=== PATIENT | female | born 1950 | race Caucasian/White ===

== ENCOUNTER 2017-10-31 07:53 | Outpatient (CLI) | payer BC ==
[2017-10-31 08:37] LABS: ADD MAN DIFF? NO
[2017-10-31 08:39] LABS: BASO # 0.2 x10^3/uL (0.0-0.2); BASO % 1 % (0-3); EOS # 0.3 x10^3/uL (0.0-0.7); EOS % 2 % (0-3); HEMATOCRIT 25.4 % (36.0-47.0); HEMOGLOBIN 8.5 g/dL (12.0-15.5); LYMPH # 3.5 x10^3/uL (1.0-4.8); LYMPH % 29 % (24-48); MEAN CORPUSCULAR HEMOGLOBIN 35 pg (25-35); MEAN CORPUSCULAR HGB CONC 33 g/dL (31-37); MEAN CORPUSCULAR VOLUME 106 fL (79-100); MONO # 0.6 x10^3/uL (0.0-1.1); MONO % 5 % (0-9); NEUT # 7.5 x10^3uL (1.8-7.7); NEUT % 62 % (31-73); PLATELET COUNT 386 x10^3/uL (140-400); RED CELL DISTRIBUTION WIDTH 16.2 % (11.5-14.5)
[2017-10-31 08:47] LABS: PARTIAL THROMBOPLASTIN TIME 28 SEC (24-38)
[2017-10-31] MEDS ORDERED: LIDOCAINE WITH 8.4% SOD BICARB 3 ML DISP.SYRIN. (09:23)
[2017-10-31] MEDS ORDERED: fentaNYL PF VIAL 100 MCG/2 ML VIAL (09:31)
[2017-10-31] MEDS ORDERED: MIDAZOLAM HCL/PF 2 MG/2 ML VIAL. (09:31)
[2017-10-31] MEDS ORDERED: fentaNYL PF VIAL 100 MCG/2 ML VIAL IV (09:45)
[2017-10-31] MEDS ORDERED: MIDAZOLAM HCL/PF 2 MG/2 ML VIAL. IV (09:45)
[2017-10-31] MEDS ORDERED: LIDOCAINE WITH 8.4% SOD BICARB 3 ML DISP.SYRIN. IJ (09:45)
[2017-10-31] MEDS: MIDAZOLAM HCL/PF 2 MG/2 ML VIAL. IV (10:09)
[2017-10-31] MEDS: fentaNYL PF VIAL 100 MCG/2 ML VIAL IV (10:09)
[2017-10-31] MEDS: LIDOCAINE WITH 8.4% SOD BICARB 3 ML DISP.SYRIN. IJ (10:10)
== END 2017-10-31 11:30 | disposition home or self-care (01) ==
LOC: INTRAD 07:53
DX: D47.2 Monoclonal gammopathy (principal); E78.00 Pure hypercholesterolemia, unspecified; I10 Essential (primary) hypertension; J45.909 Unspecified asthma, uncomplicated; E66.9 Obesity, unspecified; K21.9 Gastro-esophageal reflux disease without esophagitis; M19.90 Unspecified osteoarthritis, unspecified site; E03.9 Hypothyroidism, unspecified; F32.9 Major depressive disorder, single episode, unspecified; Z86.2 Personal history of diseases of the blood and blood-forming organs and certain disorders involving the immune mechanism; Z86.718 Personal history of other venous thrombosis and embolism; Z90.710 Acquired absence of both cervix and uterus; Z98.51 Tubal ligation status; Z98.890 Other specified postprocedural states
CPT/HCPCS: 36415; 38222; 77012; 85025; 85610; 85730; 99152; J2250; J3010

== ENCOUNTER → 2017-12-02 | Outpatient (CLI) | payer BC ==
[~2017-12-02] MED LIST: CONTRAST GIVEN MC; IOHEXOL 240 MG/ML 50ML VIAL. PO
[2017-12-02] MEDS: IOHEXOL 300 MG/ML 100ML VIAL. IV (11:51)
== END | disposition home or self-care (01) ==
LOC: CT 10:33
DX: D47.2 Monoclonal gammopathy (principal); D47.3 Essential (hemorrhagic) thrombocythemia; D72.820 Lymphocytosis (symptomatic); J98.11 Atelectasis; I10 Essential (primary) hypertension; Z87.891 Personal history of nicotine dependence
CPT/HCPCS: 71260; 74177; Q9966; Q9967

== ENCOUNTER → 2018-05-09 | Outpatient (CLI) | payer BC ==
[2017-10-31 11:15] VITALS: BP 102/52
[~2018-05-09] MED LIST changes: +BUPR150T6 PO; +CARB1TAB5 PO; -CONTRAST GIVEN MC; +DIAZ5TAB4 PO; +HYDR-2758 PO; +HYDR-2762 PO; -IOHEXOL 240 MG/ML 50ML VIAL. PO; +IPRA3AMP23 IH; +LEVO150T PO; +LEVO175T2 PO; +LEVO175T5 PO; +LOSA50TA7 PO; +MULT-18 PO; +OMEG1CAP6 PO; +OXYB5TAB7 PO; +OXYC-323 PO; +POLY17PO29 PO; +PROAIR HFA8.5 GM IH; +ROPI0.25 PO; +ROPI1TAB PO; +lisinopril
--- NOTE | 2018-05-09 13:40 | RAD ---
DATE: May 09, 2018 EXAM: DIGITAL SCREEN BILAT W/CAD HISTORY: Screening study. COMPARISON: July 06, 2013. This study was interpreted with the benefit of Computerized Aided Detection (CAD). FINDINGS: Breast Density: FATTY The breast parenchyma is primarily fatty replaced. Breast parenchyma level density A.. There are no dominant suspicious masses, suspicious microcalcifications or evidence of architectural distortion. Again seen is an intramammary lymph node within the upper outer quadrant of the right breast which is stable. IMPRESSION: No mammographic indicators for malignancy. BI-RADS CATEGORY: 2 BENIGN FINDING RECOMMENDED FOLLOW-UP: 12M 12 MONTH FOLLOW-UP PQRS compliance statement: Patient information was entered into a reminder system with a target due date May 10, 2019 for the next mammogram. Mammography is a sensitive method for finding small breast cancers, but it does not detect them all and is not a substitute for careful clinical examination. A negative mammogram does not negate a clinically suspicious finding and should not result in delay in biopsying a clinically suspicious abnormality. "Our facility is accredited by the [employer] Mammography Program." The patient's breast density may affect the ability of mammography to detect breast cancer. There are 4 categories of breast density, A, B, C and D. Breast density A means that most of the breast tissue is replaced with adipose tissue and therefore is not dense. Breast density B means that the breast tissue is mildly dense and scattered. Breast density C means that the breast tissue is heterogeneously dense. Breast density D means that the breast tissue is very dense. Breast densities especially C and D may decrease the sensitivity of mammography to detect breast cancer. Therefore, the patient may benefit from 3-D breast mammography (3D breast tomography) as a part of their screening mammogram. Insurance may or may not pay for this additional imaging. The patient's breast density based on today's mammogram is category A.
== END | disposition home or self-care (01) ==
LOC: MAMMO 10:50
PROVIDERS: ATTEND Internal Medicine
DX: Z12.31 Encounter for screening mammogram for malignant neoplasm of breast (principal); E78.00 Pure hypercholesterolemia, unspecified; K21.9 Gastro-esophageal reflux disease without esophagitis; E66.9 Obesity, unspecified; I10 Essential (primary) hypertension; E03.9 Hypothyroidism, unspecified; F17.200 Nicotine dependence, unspecified, uncomplicated; J45.909 Unspecified asthma, uncomplicated; Z86.2 Personal history of diseases of the blood and blood-forming organs and certain disorders involving the immune mechanism; Z90.710 Acquired absence of both cervix and uterus; Z90.49 Acquired absence of other specified parts of digestive tract
CPT/HCPCS: 77067

== ENCOUNTER → 2018-05-09 | Outpatient (CLI) | payer BC ==
[2017-10-31 11:15] VITALS: BP 102/52
[2018-05-09 11:33] LABS: AMPHETAMINE/METHAMPHETAMINE NEG (NEG); BARBITURATES NEG (NEG); BENZODIAZEPINES POS (NEG); CANNABINOIDS NEG (NEG); COCAINE NEG (NEG); METHADONE NEG (NEG); OPIATES POS (NEG); PHENCYCLIDINE NEG (NEG)
== END | disposition home or self-care (01) ==
LOC: LAB 11:01
PROVIDERS: ATTEND Family Medicine
DX: Z51.81 Encounter for therapeutic drug level monitoring (principal); I10 Essential (primary) hypertension; E78.5 Hyperlipidemia, unspecified; E78.00 Pure hypercholesterolemia, unspecified; K21.9 Gastro-esophageal reflux disease without esophagitis; E66.9 Obesity, unspecified; Z79.891 Long term (current) use of opiate analgesic; Z86.2 Personal history of diseases of the blood and blood-forming organs and certain disorders involving the immune mechanism; Z90.49 Acquired absence of other specified parts of digestive tract; Z90.710 Acquired absence of both cervix and uterus; Z86.718 Personal history of other venous thrombosis and embolism; Z87.891 Personal history of nicotine dependence; Z80.1 Family history of malignant neoplasm of trachea, bronchus and lung
CPT/HCPCS: 80307; G0479

== ENCOUNTER 2018-12-27 08:06 | Outpatient (CLI) | payer BC ==
[2018-12-27] VITALS (12 sets, daily range): BP systolic 96–170; BP diastolic 43–92
[~2018-12-27] VITALS: Ht 160 cm; Wt 103.9 kg
[~2018-12-27 08:06] MED LIST changes: +ALBU2.5V8 IH; -HYDR-2758 PO; +HYDR-2761 PO; -HYDR-2762 PO; +HYDR-2765 PO; +LOSA-73 PO; -LOSA50TA7 PO; -OXYC-323 PO; +OXYC1TAB15 PO; -PROAIR HFA8.5 GM IH
[2018-12-27] MEDS ORDERED: SAFI50TA PO (08:38)
[2018-12-27] MEDS ORDERED: LISI-334 PO (08:43)
[2018-12-27 08:51] LABS: BASO # 0.1 x10^3/uL (0.0-0.2); BASO % 1 % (0-3); EOS # 0.3 x10^3/uL (0.0-0.7); EOS % 4 % (0-3); HEMATOCRIT 24.6 % (36.0-47.0); HEMOGLOBIN 8.2 g/dL (12.0-15.5); LYMPH # 2.5 x10^3/uL (1.0-4.8); LYMPH % 26 % (24-48); MEAN CORPUSCULAR HEMOGLOBIN 35 pg (25-35); MEAN CORPUSCULAR HGB CONC 33 g/dL (31-37); MEAN CORPUSCULAR VOLUME 106 fL (79-100); MONO # 0.7 x10^3/uL (0.0-1.1); MONO % 7 % (0-9); NEUT # 5.8 x10^3uL (1.8-7.7); NEUT % 62 % (31-73); PLATELET COUNT 470 x10^3/uL (140-400); RED BLOOD COUNT 2.32 x10^6/uL (3.50-5.40); WHITE BLOOD COUNT 9.4 x10^3/uL (4.0-11.0)
[2018-12-27 09:01] LABS: PROTHROMBIN TIME PATIENT 12.6 SEC (11.7-14.0)
[2018-12-27] MEDS ORDERED: LIDOCAINE WITH 8.4% SOD BICARB 3 ML DISP.SYRIN. ONE (09:07)
[2018-12-27] MEDS ORDERED: fentaNYL PF VIAL 100 MCG/2 ML VIAL IV ONE (09:15)
[2018-12-27] MEDS ORDERED: MIDAZOLAM HCL/PF 2 MG/2 ML VIAL. IV ONE (09:15)
[2018-12-27] MEDS ORDERED: LIDOCAINE WITH 8.4% SOD BICARB 3 ML DISP.SYRIN. IJ ONE (09:15)
[2018-12-27] MEDS ORDERED: MIDAZOLAM HCL/PF 2 MG/2 ML VIAL. ONE (09:18)
[2018-12-27] MEDS ORDERED: fentaNYL PF VIAL 100 MCG/2 ML VIAL ONE (09:18)
--- NOTE | 2018-12-27 11:12 | NUR ---
Discharge Note: JULIETA ELDER Discharge instructions and discharge home medications reviewed with Patient and a copy given. All questions have been answered and understanding verbalized. Patient ate breakfast without difficulty. The following instructions and handouts were given: Moderate sedation and bone marrow biopsy care. Discontinued lines and drains: PIV left hand, dressing clean dry intact. Patient discharged to home with daughter via wheelchair to private vehicle.
--- NOTE | 2018-12-27 12:49 | RAD ---
CT-guided bone marrow biopsy. 12/27/2018 12:46 PM Indication: THROMBOCYTOPENIA Discussion: The risks and benefits of the procedure, including but not limited to, bleeding and infection were discussed patient. Informed consent was obtained. The patient was brought to the CT scanner and placed in the prone position. A timeout procedure was performed. Bottle Washer CT imaging of the pelvis demonstrated left ilium amenable to bone marrow biopsy. The overlying soft tissues were prepped and draped using maximum sterile barrier technique. 1% lidocaine without epinephrine was administered for local anesthesia. Under intermittent CT guidance, an OncControl needle was advanced into the bone marrow of the left iliac crest. 2 Aspirates and 1 core biopsy samples were obtained. Samples were delivered to pathology was present at the time of procedure. The needle was removed and manual pressure held to achieve hemostasis. No immediate complications were identified. The procedure was performed under conscious sedation including continuous cardiopulmonary monitoring via dedicated sedation nurse. Sedation time: 20 minutes Impression: Successful CT-guided bone marrow biopsy of the left iliac crest . PQRS Compliance Statement: One or more of the following individualized dose reduction techniques were utilized for this examination: 1. Automated exposure control 2. Adjustment of the mA and/or kV according to patient size 3. Use of iterative reconstruction technique
--- NOTE | 2019-01-05 22:06 | PATHOLOGY ---
[facility] Accession Number: [id number] . 01 Material submitted: . PART A: bone - BONE MARROW BIOPSY PART B: bone - BONE MARROW HERMELINDO PART C: bone - BONE MARROW ASPIRATE SLIDES PART D: bone - PERIPHERAL BLOOD SMEAR PART E: bone - BONE MARROW FLOW . 01 Clinical history: . 68-year-old woman with worsening anemia and monoclonal gammopathy. MGUS . 02 Diagnosis: Bone marrow aspirate, biopsy, cell clot and peripheral blood: - Peripheral blood with moderate to severe macrocytic anemia and mild thrombocytosis. - HYPERCELLULAR BONE MARROW WITH TRILINEAGE HEMATOPOIESIS, MILD ERYTHROID HYPERPLASIA, TRILINEAGE DYSPOIESIS WITH MILDLY INCREASED AND CLUSTERED MEGAKARYOCYTES AND INCREASED RINGED SIDEROBLASTS. (SEE COMMENT) - Minute population of CD10 positive monoclonal B-cells detected by flow cytometry. - No evidence of acute leukemia or plasma cell dyscrasia. (CLW:[facility] 01/05/2019) QTP/01/05/2019 . 02 Comment: Overall the bone marrow is hypercellular for the patient's age with trilineage hematopoiesis, mild erythroid hyperplasia, trilineage dyspoiesis including mildly increased and focally clustered megakaryocytes and increased ringed sideroblasts with no evidence of acute leukemia or plasma cell dyscrasia. Flow cytometry identifies a minute population of CD10 positive monoclonal B-cells which remain unchanged from the previous bone marrow biopsy. When compared to the previous bone marrow biopsy there is an increase in dyspoiesis, increased and focally clustered megakaryocytes and increased ringed sideroblasts. Scattered basophils/mast cells are noted on the aspirate smear and mildly increased eosinophils are noted on the core biopsy and clot sections. The findings are worrisome for a myelodysplastic syndrome or a mixed myelodysplastic syndrome / myeloproliferative neoplasm. Cytogenetics reveal a normal female karyotype. Correlation with clinical history and additional laboratory data is required. (CLW:[facility] 01/05/2019) . 02 Electronically signed: . Beth Cid MD, Pathologist NPI- [id number] . 01 Gross description: . A. Received in formalin labeled "Noy Philippe, BM BX," are 3 needle cores of tyler bone ranging from 0.4 to 0.9 cm in length and measuring 0.3 cm each in diameter. The specimen is submitted entirely in cassette A1, following decalcification. . B. Received in formalin labeled "Noy Philippe, BM Asp," is an aggregate of dark tyler blood clot measuring 3.4 x 2.7 x 0.9 cm. The specimen is filtered and entirely submitted in cassette B1 through B3. (TSD; 12/27/2018) TOB/TOB . 02 Microscopic: . CBC Data (12/27/2018): WBC 9,400 /uL, RBC 2.32, hemoglobin 8.2 g/dL, hematocrit 24.6%, MCV 106 fL, MCH 35 pg, MCHC 33 g/dL, RDW 18.0%, and platelet count 470,000 /uL. White blood cell differential: segs 62%, lymphs 26%, monos 7%, eos 4%, and basos 1%. . Peripheral Blood Smear: Cytomorphological examination of the Griffiths's stained peripheral blood smear confirms the provided data. Red blood cells show moderate to severe macrocytic anemia with mild to moderate anisocytosis. Occasional dacrocytes (pointed RBC's, tear drop cells) are noted. No schistocytes or microspherocytes are seen. White blood cells are predominantly segmented neutrophils and are without significant dyspoiesis or significant left shift. Lymphocytes are predominantly small, round, and mature appearing with condensed chromatin and scant cytoplasm with admixed large granular lymphocytes. Monocytes are mature. Platelets are adequate (mildly increased) in number and mainly normal in morphology with rare larger platelets noted. . Aspirate Smears: Cytomorphological examination of the Griffiths's stained aspirate smears shows hypercellular spicules present. The overall cellularity is approximately 80%. The myeloid to erythroid ratio is 2:1. Myeloid maturation is mildly dyspoietic with focal abnormal nuclear lobation and mitotic figures. There is a mild increase in scattered basophils/mast cells. Erythroid maturation is dyserythropoietic with irregular nuclear contours, left shifted maturation, occasional cytoplasmic vacuoles and nuclear cytoplasmic dyssynchrony. In a 500 cell differential, there are 1% blasts (no Savanna rods are seen), 58% more differentiated myeloids, 35% erythroid precursors, 5% lymphocytes and 1% plasma cells. Megakaryocytes are proportional in number and both normal and abnormal in morphology with variable sizes and nuclear abnormalities. No lymphoid aggregates or markedly atypical lymphoid cells are seen. Plasma cells are without atypia. Iron stain of the aspirate smear shows 3/4+ iron positivity with spicules present. Ringed sideroblasts are easily identified and comprise greater than 20% of the erythroid precursors. . Core Biopsy and Cell Clot: The decalcified bone marrow core biopsy is adequate. The bone marrow is hypercellular with an overall cellularity of approximately 80%. The myeloid to erythroid ratio is 1-2:1. Myeloid and erythroid maturation are dyspoietic. Megakaryocytes are normal to mildly increased in number and both normal and abnormal in morphology with focal megakaryocyte clustering. No markedly atypical megakaryocytes are identified. A mild eosinophilia is noted. No lymphoid aggregates or markedly atypical lymphoid cells are seen. Bony trabeculae and blood vessels are unremarkable. The cell clot has spicules present that are similar in cellularity and differential morphology as previously described. Collections of less mature erythroid progenitors are noted. The megakaryocyte clustering is more pronounced. . Properly controlled special stains are performed. (Block A1) Reticulin - Focal mild (1-2/4+) reticulin fibrosis Iron - 2/4+ iron positivity . Iron (block B1, B2, B3) - 2/4+ iron positivity with spicules present . Due to the flow cytometric analysis, to further evaluate the plasma cells and to identify cells in a tissue architectural context, properly controlled immunohistochemical stains are performed. . Block A1 PAX5 - Stains rare scattered small B-cells CD79a - Stains rare scattered small B-cells CD3 - Highlights admixed scattered T-cells Cyclin D1 - No B-cell co-expression Annexin - Stains myeloid cells, no B-cell co-expression MPO - Confirms the ME ratio Glycophorin A - Confirms the ME ratio and collections of erythroids CD138 - Stains approximately 5% scattered plasma cells Leaf and lambda in situ hybridization - plasma cells are polytypic . Block B1 PAX5 - Stains rare scattered small B-cells CD79a - Stains rare scattered small B-cells CD3 - Highlights admixed T-cells Cyclin D1 - No B-cell co-expression Annexin - Stains myeloids, no B-cell co-expression MPO - Confirms the ME ratio Glycophorin A - Confirms the ME ratio and collections of erythroids BCL6 - Nonreactive MUM1 - Stains scattered plasma cells CD138 - Stains approximately 5% scattered plasma cells Leaf and lambda in situ hybridization - plasma cells are polytypic . Flow Cytometry: Flow cytometric immunophenotypic analysis was performed at [facility]. The diagnosis is "minute population of CD10 positive monoclonal B-cells; abnormal cells: 0.3% small B-cells positive for CD10, CD19, CD20, and lambda". There are 6.2% lymphocytes. There are 0.3% monoclonal B-cells and 0.35% polyclonal B-cells. T-cells show a CD4/CD8 ratio of 4.1 and no aberrant T-cell antigen expression. There are 0.5% CD34 positive cells (blasts). Plasma cells are polyclonal with a cytoplasmic kappa lambda ratio of 1.1. Please see separate flow cytometry report from [facility] ([id number]). . Cytogenetics Analysis: Cytogenetic chromosomal analysis is performed at [facility]. The karyotype is 46, XX (20). The interpretation is a normal female karyotype. Cytogenetic analysis shows a normal female karyotype in all cells analyzed. Please see separate cytogenetic report from [facility] ([id number]). (CLW:[facility] 01/05/2019) . 02 Pathologist provided ICD-10: D53.9, D47.3, D75.89 . 02 CPT . 500111, 135987, 259971, 899453, 889202, 372406, 028039, 472726, 807029, 154304, 897091, [id number], H00639, J26903, [id number] Specimen Comment: A courtesy copy of this report has been sent to Specimen Comment: [phone], , . Specimen Comment: Report sent to ,DR DE / DR MAZARIEGOS Performed at: [address], [place], [place] [id number] MD Dyllan Santos MD Phone: [phone] Performed at: [address] [id number] MD Dell Parks MD Phone: [phone]
== END 2018-12-27 11:15 | disposition home or self-care (01) ==
LOC: INTRAD 08:06
PROVIDERS: ATTEND Internal Medicine Hematology & Oncology
DX: D47.2 Monoclonal gammopathy (principal); D69.6 Thrombocytopenia, unspecified; D64.9 Anemia, unspecified
CPT/HCPCS: 36415; 38222; 77012; 85025; 85610; 88184; 88185; 88237; 99152; J2250; J3010; 88305; 88313; 88341; 88342; 88364; 88365

== ENCOUNTER 2019-08-27 16:33 | Inpatient (IN) | payer BC ==
[~2019-08-27] VITALS: Ht 162.6 cm; Wt 102.5 kg
[2019-08-27] VITALS (7 sets, daily range): BP systolic 115–143; BP diastolic 46–67
[~2019-08-27 16:33] MED LIST changes: +LISI-334 PO; +OXYB5TAB10 PO; -OXYB5TAB7 PO; +SAFI50TA PO
[2019-08-27] MEDS ORDERED: methylPREDNISolone SOD SUCC PF 125 MG/2 ML VIAL. IV ONE (16:45)
[2019-08-27] MEDS ORDERED: IPRATRPIUM/ALBUTEROL 0.5/2.5MG 3 ML NEBU. NEB ONE (16:45)
--- NOTE | 2019-08-27 16:50 | PHYS DOC ---
Past Medical History Past Medical History: Hypertension, Hypothyroid, Other Additional Past Medical Histor: PARKINSONS (CARLITO HERNANDEZ APRN) Past Surgical History: Hysterectomy, Lumbar Laminectomy Additional Past Surgical Histo: (2) DEEP BRAIN STIMULATORS PLACEMENT (CARLITO HERNANDEZ APRN) Alcohol Use: None Drug Use: Marijuana (CARLITO HERNANDEZ APRN) Adult General HPI HPI Patient is a 69 year old female who presents with shortness breath, cough that started today. She also states she's been running a fever. Patient states that she was running 103 fever before arrival. She did take ibuprofen an hour ago. The patient's fever is reduced on 100.2F on arrival to the ER. Patient does have a restrained Parkinson's, and COPD. The patient was 85% on room air on arrival. The patient was placed on 2 L and went up into the 90% range. (CARLITO HERNANDEZ APRN) Review of Systems Review of Systems Constitutional: Reports fever or chills [] Eyes: Denies change in visual acuity, redness, or eye pain [] HENT: Denies nasal congestion or sore throat [] Respiratory: Reports cough and shortness of breath [] Cardiovascular: No additional information not addressed in HPI [] GI: Reports mild loss of appetite. Denies abdominal pain, nausea, vomiting, bloody stools or diarrhea [] : Denies dysuria or hematuria [] Musculoskeletal: Denies back pain or joint pain [] Integument: Denies rash or skin lesions [] Neurologic: Denies headache, focal weakness or sensory changes [] Endocrine: Denies polyuria or polydipsia [] Complete systems were reviewed and found to be within normal limits, except as documented in this note. (CARLITO HERNANDEZ APRN) Current Medications Current Medications Current Medications Medications (Trade) Dose Ordered Sig/Babak Start Time Stop Time Status Last Admin Dose Admin Albuterol/ Ipratropium (Duoneb) 3 ml 1X ONCE 08/27/19 16:45 08/27/19 16:46 DC 08/27/19 17:58 3 ML Methylprednisolone Sodium Succinate (SOLU-Medrol 125MG VIAL) 125 mg 1X ONCE 08/27/19 16:45 08/27/19 16:46 DC 08/27/19 17:04 125 MG Piperacillin Sod/ Tazobactam Sod 3.375 gm/Sodium Chloride 50 ml @ 100 mls/hr 1X STAT 08/27/19 17:17 08/27/19 17:46 DC 08/27/19 18:32 100 MLS/HR Potassium Chloride (Klor-Con) 40 meq 1X STAT 08/27/19 17:51 08/27/19 17:54 DC Sodium Chloride 1,000 ml @ 1,000 mls/hr 1X STAT 08/27/19 17:17 08/27/19 18:16 DC 08/27/19 17:40 1,000 MLS/HR Vancomycin HCl 1.5 gm/Sodium Chloride 500 ml @ 250 mls/hr 1X STAT 08/27/19 17:17 08/27/19 19:16 DC 08/27/19 18:32 250 MLS/HR (LEA GALVEZ MD) Allergies Allergies Allergies Coded Allergies Type Severity Reaction Last Updated Verified No Known Drug Allergies 06/10/15 No (LEA GALVEZ MD) Physical Exam Physical Exam Constitutional: Well developed, well nourished, no acute distress, non-toxic appearance. [] HENT: Normocephalic, atraumatic, bilateral external ears normal, oropharynx moist, no oral exudates, nose normal. [] Eyes: PERRLA, EOMI, conjunctiva normal, no discharge. [] Neck: Normal range of motion, no tenderness, supple, no stridor. [] Cardiovascular:Heart rate regular rhythm, no murmur [] Lungs & Thorax: Bilateral breath sounds have diffuse rhonchi and wheezing. Abdomen: Bowel sounds normal, soft, no tenderness, no masses, no pulsatile masses. [] Skin: Warm, dry, no erythema, no rash. [] ] Neurologic: Alert and oriented X 3, normal motor function, normal sensory function, no focal deficits noted. [] Psychologic: Affect normal, judgement normal, mood normal. [] (CARLITO HERNANDEZ APRN) Current Patient Data Vital Signs Vital Signs Date Time Temp Pulse Resp B/P (MAP) Pulse Ox O2 Delivery O2 Flow Rate FiO2 08/27/19 17:58 Nasal Cannula 1.5 08/27/19 17:45 98 18 99/50 (66) 93 08/27/19 16:40 100.3 100.3 (LEA GALVEZ MD) Lab Values Laboratory Tests Test 08/27/19 16:52 08/27/19 17:06 08/27/19 17:30 White Blood Count 52.7 x10^3/uL (4.0-11.0) *H Red Blood Count 2.04 x10^6/uL (3.50-5.40) L Hemoglobin 6.5 g/dL (12.0-15.5) *L Hematocrit 20.8 % (36.0-47.0) *L Mean Corpuscular Volume 102 fL (79-100) H Mean Corpuscular Hemoglobin 32 pg (25-35) Mean Corpuscular Hemoglobin Concent 31 g/dL (31-37) Red Cell Distribution Width 22.2 % (11.5-14.5) H Platelet Count 704 x10^3/uL (140-400) H Neutrophils (%) (Auto) 92 % (31-73) H Lymphocytes (%) (Auto) 5 % (24-48) L Monocytes (%) (Auto) 2 % (0-9) Eosinophils (%) (Auto) 0 % (0-3) Basophils (%) (Auto) 1 % (0-3) Neutrophils # (Auto) 48.5 x10^3/uL (1.8-7.7) H Lymphocytes # (Auto) 2.6 x10^3/uL (1.0-4.8) Monocytes # (Auto) 1.3 x10^3/uL (0.0-1.1) H Eosinophils # (Auto) 0.0 x10^3/uL (0.0-0.7) Basophils # (Auto) 0.3 x10^3/uL (0.0-0.2) H Segmented Neutrophils % 49 % (35-66) Band Neutrophils % 36 % (0-9) H Lymphocytes % 8 % (24-48) L Monocytes % 2 % (0-10) Metamyelocytes % 1 % (0-0) H Myelocytes % 3 % (0-0) H Promyelocytes % 1 % (0-0) H Toxic Granulation Mod Dohle Bodies Few Platelet Estimate Increased (ADEQUATE) Large Platelets Few Polychromasia Slight Hypochromasia Slight Poikilocytosis Slight Anisocytosis Mod Macrocytosis Slight Target Cells Occ Tear Drop Cells Few Ovalocytes Few Schistocytes Occ Prothrombin Time 15.9 SEC (11.7-14.0) H Prothrombin Time INR 1.3 (0.8-1.1) H Activated Partial Thromboplast Time 35 SEC (24-38) Sodium Level 139 mmol/L (136-145) Potassium Level 3.1 mmol/L (3.5-5.1) L Chloride Level 103 mmol/L (98-107) Carbon Dioxide Level 25 mmol/L (21-32) Anion Gap 11 (6-14) Blood Urea Nitrogen 38 mg/dL (7-20) H Creatinine 1.4 mg/dL (0.6-1.0) H Estimated GFR (Cockcroft-Gault) 37.4 BUN/Creatinine Ratio 27 (6-20) H Glucose Level 157 mg/dL (70-99) H Lactic Acid Level 1.4 mmol/L (0.4-2.0) Calcium Level 8.4 mg/dL (8.5-10.1) L Magnesium Level 2.0 mg/dL (1.8-2.4) Total Bilirubin 0.9 mg/dL (0.2-1.0) Aspartate Amino Transferase (AST) 16 U/L (15-37) Alanine Aminotransferase (ALT) < 6 U/L (14-59) L Alkaline Phosphatase 160 U/L (46-116) H Troponin I Quantitative < 0.017 ng/mL (0.000-0.055) HG-Uqy-U-Type Natriuretic Peptide 810 pg/mL (0-124) H Total Protein 6.1 g/dL (6.4-8.2) L Albumin 2.4 g/dL (3.4-5.0) L Albumin/Globulin Ratio 0.6 (1.0-1.7) L Procalcitonin 1.86 ng/mL (0.00-0.10) H Influenza Type A Antigen Negative (NEGATIVE) Influenza Type B Antigen Negative (NEGATIVE) O2 Saturation 90 % (92-99) L Arterial Blood pH 7.44 (7.35-7.45) Arterial Blood pCO2 at Patient Temp 37 mmHg (35-46) Arterial Blood pO2 at Patient Temp 60 mmHg (65-108) L Arterial Blood HCO3 24 mmol/L (21-28) Arterial Blood Base Excess 0 mmol/L (-3-3) Oxyhemoglobin 88.5 % Methemoglobin 0.8 % (0.0-1.9) Carbon Monoxide, Quantitative 0.3 % (0.0-1.9) FiO2 26 Laboratory Tests 08/27/19 16:52 Laboratory Tests 08/27/19 16:52 Microbiology 08/27/19 Blood Culture - Final, Complete (LEA GALVEZ MD) Lab Values Laboratory Tests Test 08/27/19 16:52 08/27/19 17:06 08/27/19 17:30 White Blood Count 52.7 x10^3/uL (4.0-11.0) *H Red Blood Count 2.04 x10^6/uL (3.50-5.40) L Hemoglobin 6.5 g/dL (12.0-15.5) *L Hematocrit 20.8 % (36.0-47.0) *L Mean Corpuscular Volume 102 fL (79-100) H Mean Corpuscular Hemoglobin 32 pg (25-35) Mean Corpuscular Hemoglobin Concent 31 g/dL (31-37) Red Cell Distribution Width 22.2 % (11.5-14.5) H Platelet Count 704 x10^3/uL (140-400) H Neutrophils (%) (Auto) 92 % (31-73) H Lymphocytes (%) (Auto) 5 % (24-48) L Monocytes (%) (Auto) 2 % (0-9) Eosinophils (%) (Auto) 0 % (0-3) Basophils (%) (Auto) 1 % (0-3) Neutrophils # (Auto) 48.5 x10^3/uL (1.8-7.7) H Lymphocytes # (Auto) 2.6 x10^3/uL (1.0-4.8) Monocytes # (Auto) 1.3 x10^3/uL (0.0-1.1) H Eosinophils # (Auto) 0.0 x10^3/uL (0.0-0.7) Basophils # (Auto) 0.3 x10^3/uL (0.0-0.2) H Platelet Estimate Pending Prothrombin Time 15.9 SEC (11.7-14.0) H Prothrombin Time INR 1.3 (0.8-1.1) H Activated Partial Thromboplast Time 35 SEC (24-38) Sodium Level 139 mmol/L (136-145) Potassium Level 3.1 mmol/L (3.5-5.1) L Chloride Level 103 mmol/L (98-107) Carbon Dioxide Level 25 mmol/L (21-32) Anion Gap 11 (6-14) Blood Urea Nitrogen 38 mg/dL (7-20) H Creatinine 1.4 mg/dL (0.6-1.0) H Estimated GFR (Cockcroft-Gault) 37.4 BUN/Creatinine Ratio 27 (6-20) H Glucose Level 157 mg/dL (70-99) H Lactic Acid Level 1.4 mmol/L (0.4-2.0) Calcium Level 8.4 mg/dL (8.5-10.1) L Magnesium Level 2.0 mg/dL (1.8-2.4) Total Bilirubin 0.9 mg/dL (0.2-1.0) Aspartate Amino Transferase (AST) 16 U/L (15-37) Alanine Aminotransferase (ALT) < 6 U/L (14-59) L Alkaline Phosphatase 160 U/L (46-116) H Troponin I Quantitative < 0.017 ng/mL (0.000-0.055) KF-Qnr-S-Type Natriuretic Peptide 810 pg/mL (0-124) H Total Protein 6.1 g/dL (6.4-8.2) L Albumin 2.4 g/dL (3.4-5.0) L Albumin/Globulin Ratio 0.6 (1.0-1.7) L Procalcitonin 1.86 ng/mL (0.00-0.10) H Influenza Type A Antigen Negative (NEGATIVE) Influenza Type B Antigen Negative (NEGATIVE) O2 Saturation 90 % (92-99) L Arterial Blood pH 7.44 (7.35-7.45) Arterial Blood pCO2 at Patient Temp 37 mmHg (35-46) Arterial Blood pO2 at Patient Temp 60 mmHg (65-108) L Arterial Blood HCO3 24 mmol/L (21-28) Arterial Blood Base Excess 0 mmol/L (-3-3) Oxyhemoglobin 88.5 % Methemoglobin 0.8 % (0.0-1.9) Carbon Monoxide, Quantitative 0.3 % (0.0-1.9) FiO2 26 Laboratory Tests 08/27/19 16:52 Laboratory Tests 08/27/19 16:52 (CARLITO HERNANDEZ APRN) EKG EKG EKG interpreted by Dr. Galvez Sinus tachycardia with rate of 102. (CARLITO HERNANDEZ APRN) Radiology/Procedures Radiology/Procedures [][facility] [address] [place] [address] IMAGING REPORT Signed PATIENT: JULIETA ELDER ACCOUNT: [id number] : 1950 LOCATION: ER AGE: 69 SEX: F EXAM STATUS: REG ER ORD. PHYSICIAN: CARLITO HERNANDEZ APRN REASON: shortness of breath PROCEDURE: PORTABLE CHEST 1V EXAM: CHEST 1 VIEW History: Shortness of breath COMPARISON: 01/12/2016 TECHNIQUE: Single portable radiograph of the chest FINDINGS: Mild cardiomegaly. Focal airspace opacity identified in the right upper lobe of the lung. Bibasilar lung airspace opacities. Mild prominent bilateral interstitial lung markings. Pacing stimulator leads projecting over the right and left chest wall similar to prior exam. IMPRESSION: 1. Consolidation changes identified in the right upper lobe and bibasilar lungs likely pneumonia or atelectasis. Follow-up to resolution. 2. Mild congestive changes. Electronically signed by: Mike Cook MD (08/27/2019 5:25 PM) [facility] DICTATED and SIGNED BY: MIKE COOK MD DATE: 08/27/191724 (CARLITO HERNANDEZ APRN) Course & Med Decision Making Course & Med Decision Making Pertinent Labs and Imaging studies reviewed. (See chart for details) Will get chest x-ray, flu, labs, and will give supportive care. Chest x-ray: 1. Consolidation changes identified in the right upper lobe and bibasilar lungs likely pneumonia or atelectasis. Follow-up to resolution. 2. Mild congestive changes. Electronically signed by: Mike Cook MD (08/27/2019 5:25 PM) [facility] Labs: WBC: 52.7--Ordered Zosyn and Vancomycin, also ordered 1 L of fluids as I am concerned with sepsis. H/H: 6.5/20.8--Ordered 1 PRBC Platelets of 704 K: 3.1 -Gave 40 meq of potassium Creatinine of 1.4 Lactic 1[address] Cruz who accepts admission. Also consulted Dr. Archuleta who agrees with Joaquin and Vanc recommendations. Critical Care time at bedside of 20 minutes. (CARLITO HERNANDEZ APRN) Course & Med Decision Making I evaluated the patient by myself and agreed with plan of care. (LEA GALVEZ MD) Dragon Disclaimer Dragon Disclaimer This electronic medical record was generated, in whole or in part, using a voice recognition dictation system. (CARLITO HERNANDEZ APRN) Departure Departure Impression: Primary Impression: Pneumonia Additional Impressions: Hypoxia Anemia Hypokalemia NATALIE (acute kidney injury) Disposition: 09 ADMITTED INPATIENT Admitting Physician: Carlito Cruz (CARLITO HERNANDEZ APRN) Condition: CRITICAL Referrals: CARLITO CRUZ MD (PCP) Problem Qualifiers Primary Impression: Pneumonia Pneumonia type: due to unspecified organism Laterality: right Lung location: upper lobe of lung Qualified Codes: J18.9 - Pneumonia, unspecified organism Additional Impressions: Anemia Anemia type: unspecified type Qualified Codes: D64.9 - Anemia, unspecified CARLITO HERNANDEZ APRN Aug 27, 2019 16:50 LEA GALVEZ MD Aug 28, 2019 16:02
[2019-08-27 17:09] LABS: BASO # 0.3 x10^3/uL (0.0-0.2); BASO % 1 % (0-3); EOS % 0 % (0-3); LYMPH # 2.6 x10^3/uL (1.0-4.8); LYMPH % 5 % (24-48); MEAN CORPUSCULAR HEMOGLOBIN 32 pg (25-35); MEAN CORPUSCULAR HGB CONC 31 g/dL (31-37); MEAN CORPUSCULAR VOLUME 102 fL (79-100); MONO # 1.3 x10^3/uL (0.0-1.1); MONO % 2 % (0-9); NEUT # 48.5 x10^3/uL (1.8-7.7); NEUT % 92 % (31-73); PLATELET COUNT 704 x10^3/uL (140-400); RED BLOOD COUNT 2.04 x10^6/uL (3.50-5.40); RED CELL DISTRIBUTION WIDTH 22.2 % (11.5-14.5)
[2019-08-27 17:17] LABS: WHITE BLOOD COUNT 52.7 x10^3/uL (4.0-11.0)
[2019-08-27] MEDS ORDERED: VANCOMYCIN 1.5 GM in IV NORMAL SALINE 500ML BAG 500 ML IV STA (17:17)
[2019-08-27] MEDS ORDERED: PIPERACILLIN/TAZOBACTAM 3.375 GM in IV NORMAL SALINE 50ML 50 ML IV STA (17:17)
[2019-08-27] MEDS ORDERED: IV NORMAL SALINE 1000ML BAG 1,000 ML IV STA ×2 (17:17)
[2019-08-27 17:18] LABS: HEMATOCRIT 20.8 % (36.0-47.0); HEMOGLOBIN 6.5 g/dL (12.0-15.5)
[2019-08-27 17:20] LABS: ANION GAP 11 (6-14); BLOOD UREA NITROGEN 38 mg/dL (7-20); BUN/CREATININE RATIO 27 (6-20); CALCIUM 8.4 mg/dL (8.5-10.1); CARBON DIOXIDE 25 mmol/L (21-32); CHLORIDE 103 mmol/L (98-107); CREATININE 1.4 mg/dL (0.6-1.0); GFR 37.4; GLUCOSE 157 mg/dL (70-99); POTASSIUM 3.1 mmol/L (3.5-5.1); SODIUM 139 mmol/L (136-145)
[2019-08-27 17:26] LABS: ALBUMIN 2.4 g/dL (3.4-5.0); ALBUMIN/GLOBULIN RATIO 0.6 (1.0-1.7); ALK PHOS 160 U/L (46-116); AST (SGOT) 16 U/L (15-37); TOTAL BILIRUBIN 0.9 mg/dL (0.2-1.0); TOTAL PROTEIN 6.1 g/dL (6.4-8.2)
--- NOTE | 2019-08-27 17:28 | RAD ---
EXAM: CHEST 1 VIEW History: Shortness of breath COMPARISON: 01/12/2016 TECHNIQUE: Single portable radiograph of the chest FINDINGS: Mild cardiomegaly. Focal airspace opacity identified in the right upper lobe of the lung. Bibasilar lung airspace opacities. Mild prominent bilateral interstitial lung markings. Pacing stimulator leads projecting over the right and left chest wall similar to prior exam. IMPRESSION: 1. Consolidation changes identified in the right upper lobe and bibasilar lungs likely pneumonia or atelectasis. Follow-up to resolution. 2. Mild congestive changes. Electronically signed by: Mike Cook MD (08/27/2019 5:25 PM) [facility]
[2019-08-27 17:38] LABS: BASE EXCESS COOX 0 mmol/L (-3-3); HCO3 COOX 24 mmol/L (21-28); METHEMOGLOBIN 0.8 % (0.0-1.9); OXYHEMOGLOBIN 88.5 %; PCO2 COOX 37 mmHg (35-46); PO2 COOX 60 mmHg (65-108); SAT O2 COOX 90 % (92-99)
[2019-08-27 17:45] LABS: PROTHROMBIN TIME PATIENT 15.9 SEC (11.7-14.0)
[2019-08-27] MEDS ORDERED: POTASSIUM CHLORIDE 20 MEQ TABLET.ER. PO STA (17:51)
[2019-08-27 17:54] LABS: ALT (SGPT) < 6 U/L (14-59)
[2019-08-27 18:10] LABS: INFLUENZA A PATIENT NEGATIVE (NEGATIVE); INFLUENZA B PATIENT NEGATIVE (NEGATIVE)
[2019-08-27] MEDS ORDERED: ONDANSETRON PF 4 MG/2 ML VIAL. IV PRN (18:30)
[2019-08-27] MEDS ORDERED: ACETAMINOPHEN 325 MG TABLET. PO PRN (18:30)
[2019-08-27 18:48] LABS: % BANDS 36 % (0-9); % LYMPHS 8 % (24-48); % METAS 1 % (0-0); % MONOS 2 % (0-10); % MYELOS 3 % (0-0); % PROS 1 % (0-0); % SEGS 49 % (35-66); ANISOCYTOSIS MOD; PLT ESTIMATE INCREASED (ADEQUATE); TOXIC GRANULATION MOD
[2019-08-27 18:49] LABS: OVALOCYTES FEW; POIKILOCYTOSIS SLIGHT
[2019-08-27 18:50] LABS: POLYCHROMASIA SLIGHT; SCHISTOCYTES OCC; TEAR DROP CELLS FEW
[2019-08-27 18:51] LABS: TARGET CELLS OCC
[2019-08-27 18:52] LABS: HYPOCHROMIA SLIGHT
[2019-08-27] MEDS: IPRATRPIUM/ALBUTEROL 0.5/2.5MG 3 ML NEBU. NEB SCH (20:25)
[2019-08-27] MEDS: POTASSIUM CL 20MEQ D5-0.45NACL 1,000 ML IV SCH (21:57)
[2019-08-27 22:01] LABS: BILIRUBIN,URINE NEGATIVE (NEG); CLARITY,URINE CLOUDY; COLOR,URINE YELLOW; NITRITE,URINE NEGATIVE (NEG); PROTEIN,URINE NEGATIVE (NEG-TRACE)
[2019-08-27 22:11] LABS: AMORPHOUS SEDIMENT,UR PRESENT /HPF; BACTERIA,URINE 0 /HPF (0-FEW); RBC,URINE 0 /HPF (0-2); SQUAMOUS EPITHELIAL CELL,UR FEW /LPF; WBC,URINE 0 /HPF (0-4)
[2019-08-28] VITALS (16 sets, daily range): BP systolic 99–139; BP diastolic 48–64
[2019-08-28] MEDS ORDERED: ALBUTEROL SULFATE 2.5 MG/3 ML NEBU. NEB PRN (00:30)
[2019-08-28] MEDS: rOPINIRole 1 MG TABLET. PO SCH ×7 (01:15→20:41)
[2019-08-28] MEDS: OXYBUTYNIN CHLORIDE 5 MG TABLET PO SCH ×4 (01:15→20:42)
[2019-08-28] MEDS ORDERED: MAGNESIUM HYDROXIDE 2,400 MG/30 ML ORAL.SUSP. PO PRN (03:30)
[2019-08-28] MEDS ORDERED: LOSA1TAB19 PO (03:31)
--- NOTE | 2019-08-28 05:48 | EKG ---
[facility] [address] [place] [address] Test Date: 2019-08-27 Test Time: 16:48:31 Pat Name: JULIETA ELDER Department: Room: Gender: F Production Grip: : 1950 Requested By: YVETTE HERNANDEZ Order Number: [id number] Reading MD: Measurements Intervals [place] Rate: 102 P: 49 IL: 146 QRS: 50 QRSD: 84 T: 27 QT: 338 QTc: 445 Interpretive Statements SINUS TACHYCARDIA LOW LIMB LEAD VOLTAGE NO SPECIFIC ECG ABNORMALITIES RI6.01 No previous ECG available for comparison
--- NOTE | 2019-08-28 05:58 | NUR ---
ORDERS RECEIVED FROM DR. MAZARIEGOS THERAPY MANAGER OF PATIENT TO ICU. THIS PATIENT IS ADMITTED TO ICU ROOM 108 FROM THE ED. REPORT RECEIVED FROM JENY ESCOBAR. REPORTS PATIENT REFUSED POTASSIUM AND PRBCS IN ED. RECEIVED 1L NS, ZOSYN AND VANCO INFUSED AND BLOOD CULTURES THERAPY MANAGER. FLUIDS ORDERED BUT NOT INFUSING. UPON ARRIVAL TO ICU PATIENT AWAKE AND ANSWERS QUESTIONS APPROPRIATELY, LETHARGIC. PATIENT REPORTS FEELING WEAK WITH SOA FOR THE PAST SEVERAL DAYS. EMS CALLED TODAY AND ADVISED OF LOW SAO2. FAMILY ARRIVED TO BEDSIDE. SOME ANXIETY NOTED AMONG FAMILY BUT FAMILY REDIRECTED. PATIENT STATES SHE WOULD LIKE FOR HER CARA TO BE PRIMARY CONTACT AND AUGUSTO HER DAUGHTER TO BE THE SECONDARY CONTACT. PATIENT REPORTS NOT TAKING HER XADAGO DUE TO COST. HAS NOT TAKEN MED SINCE 2018. EXPLAINED TO FAMILY AND PATIENT ABOUT CONSEQUENCES OF A LOW HGB WITHOUT THE BENEFIT OF PRBCS. PATIENT AND FAMILY ACKNOWLEDGED AND CONSENTED TO TRANSFUSION. PATIENT REMAINED STABLE THROUGH THE NIGHT BUT REMAINED LETHARIC AND WEAK.
[2019-08-28] MEDS ORDERED: rOPINIRole 1 MG TABLET. PO SCH (06:00)
[2019-08-28] MEDS: HYDROcodone/APAP 7.5/325MG 1 TAB TABLET PO PRN ×4 (06:34→20:41)
[2019-08-28] MEDS: CARBIDOPA/LEVODOPA CR 25/100MG TABLET.SA. PO SCH ×5 (06:34→20:40)
[2019-08-28] MEDS: LEVOTHYROXINE 175 MCG TABLET PO SCH (06:35)
[2019-08-28] MEDS ORDERED: PIP/TAZO PER PHARMACY MC PRN (06:45)
[2019-08-28] MEDS ORDERED: VANCOMYCIN PER PHARMACY MC PRN ×2 (06:45→10:45)
--- NOTE | 2019-08-28 06:54 | NUR ---
Pharmacy Vancomycin Dosing Note S:Consulted to monitor and dose vancomycin started 08/27/19. O:JULIETA ELDER is a 69 year old F with Pneumonia . Height: 5 feet, 4 inches Weight: 102.641344 kg Vance Body Weight: 54.70 Adjusted Body Weight: 73.90 Dosing Weight: Actual Other Antibiotics: ZOSYN 3.375 GM Q6H LABS: Last BUN: 38 Last Creatinine: 1.4 Creatinine Clearance: 45 mL/min Last WBC: 52.7 Last Procalcitonin: 1.86 Tmax (past 24 hours): Microbiology: I/O: Drug Levels: Last level: on at Last dose given 08/27/19 at 1800 Vancomycin Dosing: Loading Dose: 1500 mg x1 Dosing Weight: Actual Target Trough: 15-20 A: Based on: WT AND CRCL P: 1. Begin Vancomycin 1500 mg IV q24h 2. Follow up Trough level on 08/29/19 at 1730 3. Pharmacy will continue to monitor, follow and adjust therapy as needed. TYLER GUERRERO RPH, 08/28/19 06 Signed: 08/28/19 at 0654 by TYLER GUERRERO RPH PHA
[2019-08-28 06:55] LABS: CALCIUM 8.1 mg/dL (8.5-10.1); CREATININE 1.3 mg/dL (0.6-1.0); GFR 40.7; POTASSIUM 3.4 mmol/L (3.5-5.1)
--- NOTE | 2019-08-28 07:35 | PDOC ---
Infectious Disease Note Vital Sign Vital Signs Vital Signs Date Time Temp Pulse Resp B/P (MAP) Pulse Ox O2 Delivery O2 Flow Rate FiO2 08/28/19 06:34 32 99 3.0 08/28/19 06:00 88 121/62 (81) Nasal Cannula 08/28/19 04:00 98.5 98.5 Labs Lab Laboratory Tests Test 08/27/19 16:52 08/27/19 17:06 08/27/19 17:30 08/27/19 21:45 White Blood Count 52.7 x10^3/uL (4.0-11.0) Red Blood Count 2.04 x10^6/uL (3.50-5.40) Hemoglobin 6.5 g/dL (12.0-15.5) Hematocrit 20.8 % (36.0-47.0) Mean Corpuscular Volume 102 fL (79-100) Mean Corpuscular Hemoglobin 32 pg (25-35) Mean Corpuscular Hemoglobin Concent 31 g/dL (31-37) Red Cell Distribution Width 22.2 % (11.5-14.5) Platelet Count 704 x10^3/uL (140-400) Neutrophils (%) (Auto) 92 % (31-73) Lymphocytes (%) (Auto) 5 % (24-48) Monocytes (%) (Auto) 2 % (0-9) Eosinophils (%) (Auto) 0 % (0-3) Basophils (%) (Auto) 1 % (0-3) Neutrophils # (Auto) 48.5 x10^3/uL (1.8-7.7) Lymphocytes # (Auto) 2.6 x10^3/uL (1.0-4.8) Monocytes # (Auto) 1.3 x10^3/uL (0.0-1.1) Eosinophils # (Auto) 0.0 x10^3/uL (0.0-0.7) Basophils # (Auto) 0.3 x10^3/uL (0.0-0.2) Segmented Neutrophils % 49 % (35-66) Band Neutrophils % 36 % (0-9) Lymphocytes % 8 % (24-48) Monocytes % 2 % (0-10) Metamyelocytes % 1 % (0-0) Myelocytes % 3 % (0-0) Promyelocytes % 1 % (0-0) Toxic Granulation Mod Dohle Bodies Few Platelet Estimate Increased (ADEQUATE) Large Platelets Few Polychromasia Slight Hypochromasia Slight Poikilocytosis Slight Anisocytosis Mod Macrocytosis Slight Target Cells Occ Tear Drop Cells Few Ovalocytes Few Schistocytes Occ Prothrombin Time 15.9 SEC (11.7-14.0) Prothromb Time International Ratio 1.3 (0.8-1.1) Activated Partial Thromboplast Time 35 SEC (24-38) Sodium Level 139 mmol/L (136-145) Potassium Level 3.1 mmol/L (3.5-5.1) Chloride Level 103 mmol/L (98-107) Carbon Dioxide Level 25 mmol/L (21-32) Anion Gap 11 (6-14) Blood Urea Nitrogen 38 mg/dL (7-20) Creatinine 1.4 mg/dL (0.6-1.0) Estimated GFR (Cockcroft-Gault) 37.4 BUN/Creatinine Ratio 27 (6-20) Glucose Level 157 mg/dL (70-99) Lactic Acid Level 1.4 mmol/L (0.4-2.0) Calcium Level 8.4 mg/dL (8.5-10.1) Magnesium Level 2.0 mg/dL (1.8-2.4) Total Bilirubin 0.9 mg/dL (0.2-1.0) Aspartate Amino Transf (AST/SGOT) 16 U/L (15-37) Alanine Aminotransferase (ALT/SGPT) < 6 U/L (14-59) Alkaline Phosphatase 160 U/L (46-116) Troponin I Quantitative < 0.017 ng/mL (0.000-0.055) VL-Ack-J-Type Natriuretic Peptide 810 pg/mL (0-124) Total Protein 6.1 g/dL (6.4-8.2) Albumin 2.4 g/dL (3.4-5.0) Albumin/Globulin Ratio 0.6 (1.0-1.7) Procalcitonin 1.86 ng/mL (0.00-0.10) Influenza Type A Antigen Negative (NEGATIVE) Influenza Type B Antigen Negative (NEGATIVE) O2 Saturation 90 % (92-99) Arterial Blood pH 7.44 (7.35-7.45) Arterial Blood pCO2 at Patient Temp 37 mmHg (35-46) Arterial Blood pO2 at Patient Temp 60 mmHg (65-108) Arterial Blood HCO3 24 mmol/L (21-28) Arterial Blood Base Excess 0 mmol/L (-3-3) Oxyhemoglobin 88.5 % Methemoglobin 0.8 % (0.0-1.9) Carbon Monoxide, Quantitative 0.3 % (0.0-1.9) FiO2 26 Urine Collection Type U cath Urine Color Yellow Urine Clarity Cloudy Urine pH 6.0 Urine Specific [place] 1.010 Urine Protein Negative mg/dL (NEG-TRACE) Urine Glucose (UA) Negative mg/dL (NEG) Urine Ketones (Stick) Negative mg/dL (NEG) Urine Blood Negative (NEG) Urine Nitrite Negative (NEG) Urine Bilirubin Negative (NEG) Urine Urobilinogen Dipstick 1.0 mg/dL (0.2 mg/dL) Urine Leukocyte Esterase Negative (NEG) Urine RBC 0 /HPF (0-2) Urine WBC 0 /HPF (0-4) Urine Squamous Epithelial Cells Few /LPF Urine Amorphous Sediment Present /HPF Urine Bacteria 0 /HPF (0-FEW) Test 08/28/19 06:25 Sodium Level 142 mmol/L (136-145) Potassium Level 3.4 mmol/L (3.5-5.1) Chloride Level 107 mmol/L (98-107) Carbon Dioxide Level 25 mmol/L (21-32) Anion Gap 10 (6-14) Blood Urea Nitrogen 36 mg/dL (7-20) Creatinine 1.3 mg/dL (0.6-1.0) Estimated GFR (Cockcroft-Gault) 40.7 Glucose Level 248 mg/dL (70-99) Calcium Level 8.1 mg/dL (8.5-10.1) Low Molecular Weight Heparin < 0.10 IU/mL Objective Assessment pt seen, consult dictated Plan Plan of Care / ROSSY BAER MD Aug 28, 2019 07:35
[2019-08-28 07:37] LABS: BASO # 0.1 x10^3/uL (0.0-0.2); BASO % 0 % (0-3); EOS % 0 % (0-3); HEMATOCRIT 21.8 % (36.0-47.0); LYMPH # 2.1 x10^3/uL (1.0-4.8); LYMPH % 4 % (24-48); MEAN CORPUSCULAR HEMOGLOBIN 32 pg (25-35); MEAN CORPUSCULAR HGB CONC 32 g/dL (31-37); MEAN CORPUSCULAR VOLUME 100 fL (79-100); MONO # 0.6 x10^3/uL (0.0-1.1); MONO % 1 % (0-9); NEUT % 94 % (31-73); PLATELET COUNT 620 x10^3/uL (140-400); RED BLOOD COUNT 2.18 x10^6/uL (3.50-5.40); RED CELL DISTRIBUTION WIDTH 23.2 % (11.5-14.5)
[2019-08-28] MEDS: IPRATRPIUM/ALBUTEROL 0.5/2.5MG 3 ML NEBU. NEB SCH ×3 (08:00→15:46)
[2019-08-28 08:01] LABS: WHITE BLOOD COUNT 48.9 x10^3/uL (4.0-11.0)
[2019-08-28] MEDS: PIPERACILLIN/TAZOBACTAM 3.375 GM in IV NORMAL SALINE 50ML 50 ML IV SCH ×4 (08:04→23:43)
[2019-08-28] MEDS: OMEGA-3 FATTY ACIDS/FISH OIL 1,000 MG CAPSULE. PO SCH ×2 (08:06→20:42)
[2019-08-28] MEDS: POLYETHYLENE GLYCOL 3350 17 GM PACKET. PO SCH (08:06)
[2019-08-28] MEDS: MULTIVITAMIN with MINERAL TABLET. PO SCH (08:06)
[2019-08-28] MEDS: buPROPion XL 150 MG TAB.ER.24H. PO SCH (08:08)
--- NOTE | 2019-08-28 08:35 | CONS ---
DATE OF CONSULTATION: 08/28/2019 REQUESTING PHYSICIAN: Dr. Cruz. REASON FOR CONSULTATION: Pneumonia and hypoxia. HISTORY OF PRESENT ILLNESS: This is a 69-year-old female with a history of multiple medical problems who came in with a 1-week history of cough, some shortness of breath, and not feeling well. The patient states she has had fever. Denied any chest pain, denied any nausea, vomiting, diarrhea, headache, visual symptoms or abdominal pain. The patient was found to have pneumonia, hypoxemia, hence her admission. The patient's white count is also up to 52,000. The patient's hemoglobin is down to 6.5. The ER physician called me and started her on vancomycin and Zosyn this morning. The patient denies any other complaints other than what I mentioned in HPI. PAST MEDICAL HISTORY: Positive for hypertension, hypothyroidism, Parkinson's disease, hyperlipidemia, asthma, morbid obesity, anemia. She has had lung nodule, which was biopsied and negative for malignancy. PAST SURGICAL HISTORY: She has had hysterectomy, right-sided salpingo-oophorectomy, deep brain stimulator placed. SOCIAL HISTORY: Negative for smoking, alcohol use. She does smoke marijuana off and on. ALLERGIES: No known drug allergies. CURRENT MEDICATIONS: Reviewed. REVIEW OF SYSTEMS: As per HPI, all other systems reviewed and are negative. PHYSICAL EXAMINATION: GENERAL: Alert, oriented female, not in distress. VITAL SIGNS: Stable, afebrile. HEENT: Both pupils are round and reacting. No conjunctival lesion, no lesion in the mouth. NECK: Supple, no JVP, no lymphadenopathy. LUNGS: Clear. HEART: S1, S2 regular. No gallop or murmur. ABDOMEN: Soft, nontender, no organomegaly. EXTREMITIES: No edema. The patient does have right leg bigger than the left. She says that is the way it is for years. There is no erythema. There is no cyanosis. NEUROLOGIC: Alert, awake and appropriate. No focal neurologic deficit. LABORATORY DATA: White count is 52.7, hemoglobin 6.5, and platelets are 704,000. BUN and creatinine is 38 and 1.4. Lactic acid 1.4. Urinalysis unremarkable. Influenza screen negative. Chest x-ray showed consolidation in the right upper lobe and bibasilar lung changes/pneumonia versus atelectasis. IMPRESSION: 1. Community-acquired pneumonia. 2. Leukocytosis/leukemoid reaction. 3. Acute kidney injury. 4. Hypoxemia. 5. Parkinson's disease. 6. Hypertension. 7. Hypothyroidism. RECOMMENDATIONS: We will obtain sputum, blood culture has been taken. We will discontinue vancomycin, continue Zosyn, add azithromycin, supportive care, hydration, and we will continue to follow. Thank you very much, Dr. Cruz, for giving me the opportunity to participate in this patient's care. ROSSY BAER MD DR: FELICITAS/maurilio JOB#: [id number] / [id number]
[2019-08-28] MEDS ORDERED: LEVODOPA PO SCH (09:00)
[2019-08-28] MEDS ORDERED: SAFINAMIDE MESYLATE PO SCH (09:00)
[2019-08-28] MEDS ORDERED: OXYBUTYNIN CHLORIDE 5 MG TABLET PO SCH (09:00)
[2019-08-28] MEDS ORDERED: CARBIDOPA PO SCH (09:00)
[2019-08-28] MEDS: AZITHROMYCIN 500 MG in IV NORMAL SALINE 250ML 250 ML IV SCH (10:03)
[2019-08-28] MEDS: POTASSIUM CL 20MEQ D5-0.45NACL 1,000 ML IV SCH ×2 (10:10→11:26)
[2019-08-28] MEDS ORDERED: ACETAMINOPHEN 325 MG TABLET. PO PRN (10:30)
--- NOTE | 2019-08-28 10:34 | PDOC ---
Provider Note Provider Note history and physical dictated # [id number] YVETTE MAZARIEGOS MD Aug 28, 2019 10:34
[2019-08-28] MEDS ORDERED: POTASSIUM CHLORIDE 20 MEQ TABLET.ER. PO ONE (11:00)
[2019-08-28] MEDS ORDERED: ENOXAPARIN 40 MG/0.4 ML SYRINGE. SQ SCH ×2 (11:00→21:00)
--- NOTE | 2019-08-28 11:05 | NUR ---
SS following for discharge planning. SS reviewed pt chart. Pt is from home with spouse and is currently requiring oxygen. SS will continue to follow for discharge planning.
--- NOTE | 2019-08-28 11:15 | CONS ---
DATE OF CONSULTATION: PULMONARY CONSULTATION ATTENDING PHYSICIAN: Carlito Cruz MD REASON FOR CONSULTATION: Respiratory failure. HISTORY OF PRESENT ILLNESS: The patient is a 69-year-old morbidly obese patient who has no significant tobacco history. She said she only smoked for a few years. She was brought into the hospital with increasing shortness of breath. She has also had a cough, which was nonproductive and dry. She has been running a fever. Her T-max was 100.3 in the hospital and was 103 before arrival. I have reviewed the patient's chest x-ray and it shows consolidation in the right upper lobe and also in the right lower lobe. The patient was noted to have markedly elevated white cell count of 52,000 and also was anemic with the hemoglobin of 6.5. She has been followed by Dr. Solis, her range manager. She denies any history of deep vein thrombosis or pulmonary embolism. She is not on home oxygen. No headaches. No nausea, vomiting or diarrhea. PAST MEDICAL HISTORY: Significant for history of hypertension, hypothyroidism, history of Parkinson's. History of morbid obesity. PAST SURGICAL HISTORY: Hysterectomy, lumbar laminectomy, deep brain stimulator's placement. ALLERGIES: None. MEDICATIONS: Reviewed as listed in the MRAD including Lovenox and broad-spectrum antibiotics per ID. REVIEW OF SYSTEMS: Twelve-point system obtained. Pertinent positives discussed in my history of present illness, otherwise noncontributory. All systems that were negative were reviewed as well. SOCIAL HISTORY: Smoked very minimally. No history of alcohol abuse. PHYSICAL EXAMINATION: VITAL SIGNS: She is febrile, blood pressure 99/50. She is mildly tachypneic. Pulse ox 93% on 3 liters. HEENT: Sclerae nonicteric. NECK: Supple. LUNGS: With diminished breath sounds. CARDIOVASCULAR: With a regular rate. ABDOMEN: Soft, obese. EXTREMITIES: With 1+ pitting edema bilaterally. LABORATORY DATA: Labs were reviewed. Influenza screen is negative. BUN is 36, creatinine 1.3. Procalcitonin 1.86. INR 1.3. White cell count was 52.7, hemoglobin of 6.5 and she got 1 unit of packed RBCs. Platelets of 704. ABGs with a pH of 7.44, pCO2 of 37 and a pO2 of 60 on 26% FIO2. IMPRESSION: 1. Acute hypoxic respiratory failure secondary to pneumonia, likely gram negative. Cannot exclude gram positive. Influenza screen negative. 2. Abnormal chest x-ray consistent with right upper lobe consolidation and right lower lobe infiltrate, favoring pneumonia. 3. Underlying obesity also contributing to her dyspnea. 4. Marked leukocytosis. Could be a leukemoid reaction. Hematology is following. 5. Marked anemia. ? gastrointestinal bleed. ? MDS. Hematology is following. She is status post 1 unit of packed RBCs and will need to follow up. 6. Increased procalcitonin level suggesting infectious etiology. RECOMMENDATIONS: 1. We will continue with present oxygen. 2. We will monitor respiratory status closely. May need p.r.n. BiPAP. 3. Monitor fevers. 4. Monitor white cell count and hemoglobin. 5. Broad-spectrum antibiotics per Infectious Disease. 6. Lovenox for DVT prophylaxis was initiated. I will consider holding due to the anemia. 7. Continue bronchodilators. 8. Discussed with RN and RT. We will follow along with you. We will keep her in the ICU. Critical care time 35 minutes. RADHA CORTES MD DR: JOSSELYN/maurilio JOB#: [id number] / [id number] INDY
[2019-08-28] MEDS: LACTULOSE 20 GM/30 ML SOLUTION. PO SCH ×2 (11:26→11:53)
--- NOTE | 2019-08-28 11:34 | HP ---
ADMIT DATE: 08/28/2019 LOCATION: She is in Intensive Care Unit, room #108. HISTORY OF PRESENT ILLNESS: The patient is a 69-year-old white female with history of Parkinson's disease and myelodysplasia, who also has a history of hypertension, hypothyroidism, chronic anemia and mild leukocytosis and myelodysplasia, was admitted to [facility] through the Emergency Room on 08/27/2019 with a 1-week history of cough and she developed some fever and chills over the last couple of days prior to admission and some shortness of breath. Her appetite also has been decreased for 1 week. In the Emergency Room, her influenza screen was negative and her white count was 52,000. Hemoglobin 6.5 and she received 1 unit of packed red blood cells. In the office, last white count had several months ago was 13,000. The patient was started on IV vancomycin and Zosyn. Blood and sputum cultures were ordered. Blood cultures have come back for gram-positive cocci in pairs and chains. The patient is, therefore, admitted for further evaluation of her bacteremia and sepsis and pneumonia as well as acute hypoxic respiratory failure. She was started on oxygen. ALLERGIES AND INTOLERANCES: None. MEDICATIONS: Prior to admission include levothyroxine 175 mcg every day, losartan 25 mg every day, multiple vitamin every day, DuoNeb nebulized treatments q.i.d., [place] 7.5 mg every 4 hours p.r.n., fish oil 1 g every day, oxybutynin 5 mg t.i.d., Requip 3 mg 5 times a day, Sinemet 50-200 five times a day, and also bupropion XL 150 mg every day and she says she is not on Xadago 50 mg every day and marked as it was too expensive. She also is supposed to be receiving monthly Aranesp injections, but has not received in the last 3 months. PAST MEDICAL HISTORY: Significant for myelodysplasia, hypothyroidism, hypertension, Parkinson's disease, deep vein thrombosis, left axillary vein in 1995, appendectomy, deep brain stimulator placement, lumbar microdiskectomy, hysterectomy and right salpingo-oophorectomy. SOCIAL HISTORY: She does not drink alcohol nor does she smoke cigarettes. She uses a walker to get around. FAMILY HISTORY: Noncontributory. REVIEW OF SYSTEMS: GENERAL: She had fever and chills. CARDIOVASCULAR: No chest pain. PULMONARY: She had a cough and shortness of breath. GASTROINTESTINAL: Decreased appetite. ENDOCRINE: No diabetes mellitus. SKIN: No rashes. Rest of systems reviewed and negative except as stated in history of present illness. PHYSICAL EXAMINATION: VITAL SIGNS: Temperature is 98.7 degrees, pulse 86, respiratory rate is 30, and the oxygen saturation is 97% on 3 liters per nasal cannula. HEENT: Eyes: Gaze is conjugate. Mouth is symmetrical. NECK: No cervical lymphadenopathy or thyroid enlargement. HEART: Reveals an S1, S2. There is no S3 or murmur. LUNGS: Revealed bilateral rhonchi. ABDOMEN: Obese and soft, nontender. EXTREMITIES: Lower extremities without edema. Both feet are warm. SKIN: No rashes. NEUROLOGIC: No focal weakness of the extremities or facial asymmetry. LABORATORY DATA: White count is 52.7 yesterday and 48.9 now, hemoglobin 6.5 yesterday and was 7.0 after transfusion, platelet count is 704,000 and 620,000 this morning and she had 49 polys and 36 bands and 3 myelocytes and 1 metamyelocyte and 1 promyelocyte. No white cell differential with a platelet count I mentioned of 704,000 and today platelet count 620,000. Arterial blood gas showed a pH of 7.44, pCO2 of 37, pO2 of 60. The INR was 1.3 with a PTT of 35. Sodium 142, potassium 3.4, chloride 107, total CO2 is 25, BUN 36, creatinine 1.3. The blood sugar was 248. Lactic acid level is 1.4. ProBNP 810. Procalcitonin 1.86. Yesterday, the potassium was low at 3.1 with a BUN of 38, creatinine 1.4. Magnesium was 2.0, albumin 2.4. Urinalysis was unremarkable for any pyuria. Influenza A and B was negative. Blood cultures are positive for gram-positive cocci in pairs and chains. Chest x-ray showed consolidative changes in the right upper lobe and bibasilar infiltrates consistent with pneumonia or atelectasis with mild cardiomegaly. She had an electrocardiogram showed a sinus rhythm with no acute abnormality. ASSESSMENT: 1. Community-acquired pneumonia. 2. Suspect Streptococcus bacteremia, but the cultures are still pending with sepsis. 3. Acute hypoxic respiratory failure. 4. Myelodysplasia with a leukemoid reaction. 5. Chronic anemia. 7. Parkinson's disease. 8. Hypertension. 9. Hypothyroidism. PLAN: At this time is to continue with IV vancomycin and the IV Zosyn. Wait for the final blood cultures and sputum culture. We will order some physical therapy. Continue oxygen and nebulizer treatments. Replete the potassium. Continue with her home medications. Order Lovenox for deep vein thrombosis prophylaxis. Hold off on her blood pressure medication for the time being also. YVETTE MAZARIEGOS MD DR: TYREL/maurilio JOB#: [id number] / [id number]
[2019-08-28] MEDS: ALBUTEROL SULFATE 2.5 MG/3 ML NEBU. NEB SCH ×3 (12:00→20:00)
[2019-08-28] MEDS: INSULIN LISPRO 300 UNITS/3 ML VIAL. SQ SCH ×2 (12:02→16:54)
--- NOTE | 2019-08-28 12:04 | PDOC2 ---
GI CONSULT Reason For Consult: Anemia HPI: HPI: 69 y/o female ill for about 1 week w/ SOA, cough, and fever. Admitted w/ CAP. H/o anemia w/ previous bone marrow biopsies - doesn't really remember what she was told about those results but says she sees Dr. Solis and gets an injection about every month but hasn't been able to go for a couple months because she's been sick and didn't have a working vehicle. Chart indicates h/o MGUS, thrombocy tosis, and leukocytosis (though WBC normal in 12/2018). No reflux/heartburn, n/v, diarrhea, hematemesis, hematochezia, melena, or weight loss. Occasionally gets a piece of solid food stuck in throat - just has to wait a minute for it to go down. Typical bowel pattern is to have a stool, then skip a few days, then have a stool - sometimes takes a laxative but usually doesn't need to. Last week had some abdominal soreness attributed to coughing. No previous EGD or colonoscopy. No GB, liver, pancreas, or PUD history. Takes ibuprofen BID for chronic back pain (along w/ hydrocodone). Takes a multi- vitamin as well. TIBC low w/ elevated iron sat in 2016, normal B12. Hematology consult is pending along w/ GRAVITY PROSPECTING OPERATOR HELPER dianne. PMH: PMH: HTN, HLD, hypothyroidism, left axillary DVT, overactive bladder x 2, bone marrow biopsy x 2, lung biopsy, hysterectomy, removal of ovarian cysts, right salpingo-oophorectomy, appendectomy, deep brain stimulator placement, back surgery x 2 FH: Family History: Cancer (lung - father) Social History: Smoke: Quit ALCOHOL: none Drugs: Marijuana ROS: GEN: +fever HEENT: Denies blurred vision, sore throat CV: Denies chest pain RESP: +SOA +cough GI: Per HPI : Denies hematuria, dysuria ENDO: Denies weight changes NEURO: Denies confusion, dizziness MSK: +chronic back pain SKIN: Denies jaundice, pruritus Vitals: Vitals: Vital Signs Date Time Temp Pulse Resp B/P (MAP) Pulse Ox O2 Delivery O2 Flow Rate FiO2 08/28/19 11:00 88 19 99/60 (73) 100 Nasal Cannula 3.0 08/28/19 08:00 98.7 98.7 Labs: Labs: Laboratory Tests Test 08/27/19 16:52 08/27/19 17:06 08/27/19 17:30 08/27/19 21:45 White Blood Count 52.7 x10^3/uL (4.0-11.0) Red Blood Count 2.04 x10^6/uL (3.50-5.40) Hemoglobin 6.5 g/dL (12.0-15.5) Hematocrit 20.8 % (36.0-47.0) Mean Corpuscular Volume 102 fL (79-100) Mean Corpuscular Hemoglobin 32 pg (25-35) Mean Corpuscular Hemoglobin Concent 31 g/dL (31-37) Red Cell Distribution Width 22.2 % (11.5-14.5) Platelet Count 704 x10^3/uL (140-400) Neutrophils (%) (Auto) 92 % (31-73) Lymphocytes (%) (Auto) 5 % (24-48) Monocytes (%) (Auto) 2 % (0-9) Eosinophils (%) (Auto) 0 % (0-3) Basophils (%) (Auto) 1 % (0-3) Neutrophils # (Auto) 48.5 x10^3/uL (1.8-7.7) Lymphocytes # (Auto) 2.6 x10^3/uL (1.0-4.8) Monocytes # (Auto) 1.3 x10^3/uL (0.0-1.1) Eosinophils # (Auto) 0.0 x10^3/uL (0.0-0.7) Basophils # (Auto) 0.3 x10^3/uL (0.0-0.2) Segmented Neutrophils % 49 % (35-66) Band Neutrophils % 36 % (0-9) Lymphocytes % 8 % (24-48) Monocytes % 2 % (0-10) Metamyelocytes % 1 % (0-0) Myelocytes % 3 % (0-0) Promyelocytes % 1 % (0-0) Toxic Granulation Mod Dohle Bodies Few Platelet Estimate Increased (ADEQUATE) Large Platelets Few Polychromasia Slight Hypochromasia Slight Poikilocytosis Slight Anisocytosis Mod Macrocytosis Slight Target Cells Occ Tear Drop Cells Few Ovalocytes Few Schistocytes Occ Prothrombin Time 15.9 SEC (11.7-14.0) Prothromb Time International Ratio 1.3 (0.8-1.1) Activated Partial Thromboplast Time 35 SEC (24-38) Sodium Level 139 mmol/L (136-145) Potassium Level 3.1 mmol/L (3.5-5.1) Chloride Level 103 mmol/L (98-107) Carbon Dioxide Level 25 mmol/L (21-32) Anion Gap 11 (6-14) Blood Urea Nitrogen 38 mg/dL (7-20) Creatinine 1.4 mg/dL (0.6-1.0) Estimated GFR (Cockcroft-Gault) 37.4 BUN/Creatinine Ratio 27 (6-20) Glucose Level 157 mg/dL (70-99) Lactic Acid Level 1.4 mmol/L (0.4-2.0) Calcium Level 8.4 mg/dL (8.5-10.1) Magnesium Level 2.0 mg/dL (1.8-2.4) Total Bilirubin 0.9 mg/dL (0.2-1.0) Aspartate Amino Transf (AST/SGOT) 16 U/L (15-37) Alanine Aminotransferase (ALT/SGPT) < 6 U/L (14-59) Alkaline Phosphatase 160 U/L (46-116) Troponin I Quantitative < 0.017 ng/mL (0.000-0.055) QQ-Idl-V-Type Natriuretic Peptide 810 pg/mL (0-124) Total Protein 6.1 g/dL (6.4-8.2) Albumin 2.4 g/dL (3.4-5.0) Albumin/Globulin Ratio 0.6 (1.0-1.7) Procalcitonin 1.86 ng/mL (0.00-0.10) Influenza Type A Antigen Negative (NEGATIVE) Influenza Type B Antigen Negative (NEGATIVE) O2 Saturation 90 % (92-99) Arterial Blood pH 7.44 (7.35-7.45) Arterial Blood pCO2 at Patient Temp 37 mmHg (35-46) Arterial Blood pO2 at Patient Temp 60 mmHg (65-108) Arterial Blood HCO3 24 mmol/L (21-28) Arterial Blood Base Excess 0 mmol/L (-3-3) Oxyhemoglobin 88.5 % Methemoglobin 0.8 % (0.0-1.9) Carbon Monoxide, Quantitative 0.3 % (0.0-1.9) FiO2 26 Urine Collection Type U cath Urine Color Yellow Urine Clarity Cloudy Urine pH 6.0 Urine Specific [place] 1.010 Urine Protein Negative mg/dL (NEG-TRACE) Urine Glucose (UA) Negative mg/dL (NEG) Urine Ketones (Stick) Negative mg/dL (NEG) Urine Blood Negative (NEG) Urine Nitrite Negative (NEG) Urine Bilirubin Negative (NEG) Urine Urobilinogen Dipstick 1.0 mg/dL (0.2 mg/dL) Urine Leukocyte Esterase Negative (NEG) Urine RBC 0 /HPF (0-2) Urine WBC 0 /HPF (0-4) Urine Squamous Epithelial Cells Few /LPF Urine Amorphous Sediment Present /HPF Urine Bacteria 0 /HPF (0-FEW) Test 08/28/19 06:25 White Blood Count 48.9 x10^3/uL (4.0-11.0) Red Blood Count 2.18 x10^6/uL (3.50-5.40) Hemoglobin 7.0 g/dL (12.0-15.5) Hematocrit 21.8 % (36.0-47.0) Mean Corpuscular Volume 100 fL (79-100) Mean Corpuscular Hemoglobin 32 pg (25-35) Mean Corpuscular Hemoglobin Concent 32 g/dL (31-37) Red Cell Distribution Width 23.2 % (11.5-14.5) Platelet Count 620 x10^3/uL (140-400) Neutrophils (%) (Auto) 94 % (31-73) Lymphocytes (%) (Auto) 4 % (24-48) Monocytes (%) (Auto) 1 % (0-9) Eosinophils (%) (Auto) 0 % (0-3) Basophils (%) (Auto) 0 % (0-3) Neutrophils # (Auto) 46.0 x10^3/uL (1.8-7.7) Lymphocytes # (Auto) 2.1 x10^3/uL (1.0-4.8) Monocytes # (Auto) 0.6 x10^3/uL (0.0-1.1) Eosinophils # (Auto) 0.0 x10^3/uL (0.0-0.7) Basophils # (Auto) 0.1 x10^3/uL (0.0-0.2) Sodium Level 142 mmol/L (136-145) Potassium Level 3.4 mmol/L (3.5-5.1) Chloride Level 107 mmol/L (98-107) Carbon Dioxide Level 25 mmol/L (21-32) Anion Gap 10 (6-14) Blood Urea Nitrogen 36 mg/dL (7-20) Creatinine 1.3 mg/dL (0.6-1.0) Estimated GFR (Cockcroft-Gault) 40.7 Glucose Level 248 mg/dL (70-99) Calcium Level 8.1 mg/dL (8.5-10.1) Low Molecular Weight Heparin < 0.10 IU/mL Allergies: Coded Allergies: No Known Drug Allergies (Unverified , 06/10/15) Medications: Current Medications Medications (Trade) Dose Ordered Sig/Babak Route PRN Reason Start Time Stop Time Status Last Admin Dose Admin Methylprednisolone Sodium Succinate (SOLU-Medrol 125MG VIAL) 125 mg 1X ONCE IV 08/27/19 16:45 08/27/19 16:46 DC 08/27/19 17:04 Albuterol/ Ipratropium (Duoneb) 3 ml 1X ONCE NEB 08/27/19 16:45 08/27/19 16:46 DC 08/27/19 17:58 Piperacillin Sod/ Tazobactam Sod 3.375 gm/Sodium Chloride 50 ml @ 100 mls/hr 1X STAT IV 08/27/19 17:17 08/27/19 17:46 DC 08/27/19 18:32 Vancomycin HCl 1.5 gm/Sodium Chloride 500 ml @ 250 mls/hr 1X STAT IV 08/27/19 17:17 08/27/19 19:16 DC 08/27/19 18:32 Sodium Chloride 1,000 ml @ 1,000 mls/hr 1X STAT IV 08/27/19 17:17 08/27/19 18:16 DC 08/27/19 17:40 Albuterol/ Ipratropium (Duoneb) 3 ml RTQID NEB 08/27/19 20:00 08/28/19 19:59 08/27/19 20:25 Potassium Chloride/Dextrose/ Sod Cl 1,000 ml @ 75 mls/hr [id number] IV 08/27/19 21:00 08/28/19 10:25 DC 08/28/19 10:10 Bupropion HCl (Wellbutrin Xl) 150 mg DAILY PO 08/28/19 09:00 08/28/19 08:08 Acetaminophen/ Hydrocodone Bitart (Lortab 7.5/325) 0.5 tab PRN Q4HRS PRN PO MODERATE PAIN 4-6 08/28/19 00:00 08/28/19 06:34 Albuterol Sulfate (Ventolin Neb Soln) 2.5 mg PRN QID PRN NEB SHORTNESS OF BREATH 08/28/19 00:30 08/28/19 10:25 DC 08/28/19 00:28 Levothyroxine Sodium (Synthroid) 175 mcg DAILYAC PO 08/28/19 07:30 08/28/19 06:35 Fish Oil (Fish Oil) 1 mg BID PO 08/28/19 09:00 08/28/19 08:06 Polyethylene Glycol (miraLAX PACKET) 17 gm DAILY PO 08/28/19 09:00 08/28/19 08:06 Multivitamins (Thera M Plus) 1 tab DAILY PO 08/28/19 09:00 08/28/19 08:06 Carbidopa/Levodopa (Sinemet Cr) 2 tab.sa 5XDAY PO 08/28/19 06:00 08/28/19 10:19 Oxybutynin Chloride (Ditropan) 5 mg TID PO 08/28/19 01:15 08/28/19 08:05 Ropinirole HCl (Requip) 3 mg 5XDAY PO 08/28/19 01:15 08/28/19 10:03 Acetaminophen/ Hydrocodone Bitart (Lortab 7.5/325) 1 tab PRN Q4HRS PRN PO SEVERE PAIN 7-10 08/28/19 02:00 08/28/19 10:09 Vancomycin HCl (Vanco Per Pharmacy) 1 each PRN DAILY PRN MC SEE COMMENTS 08/28/19 06:45 08/28/19 07:43 DC 08/28/19 06:52 Piperacillin Sod/ Tazobactam Sod 3.375 gm/Sodium Chloride 50 ml @ 100 mls/hr Q6HRS IV 08/28/19 07:00 08/28/19 11:29 Azithromycin 500 mg/Sodium Chloride 250 ml @ 250 mls/hr Q24H IV 08/28/19 08:00 08/28/19 10:03 Potassium Chloride (Klor-Con) 20 meq 1X ONCE PO 08/28/19 11:00 08/28/19 11:01 DC 08/28/19 11:26 Lactulose (Lactulose) 20 gm Q2H PO 08/28/19 12:00 08/28/19 14:01 08/28/19 11:26 Potassium Chloride/Dextrose/ Sod Cl 1,000 ml @ 60 mls/hr [id number] IV 08/28/19 10:45 08/28/19 11:26 Imaging: Imaging: CXR 08/27/19 IMPRESSION: 1. Consolidation changes identified in the right upper lobe and bibasilar lungs likely pneumonia or atelectasis. Follow-up to resolution. 2. Mild congestive changes. Bone Marrow Biopsies 10/2017: FINAL DIAGNOSIS: Bone marrow aspirate, biopsy, cell clot, and peripheral blood: - Peripheral blood with moderate to severe macrocytic, normochromic anemia, mild leukocytosis, and absolute neutrophilia. - Moderately hypercellular bone marrow with minimal dyspoiesis. - Flow cytometry studies with minute lambda monoclonal and CD10 positive B cell population (approximately 0.5%) (please see comment). COMMENT: Overall, the bone marrow biopsy shows active hematopoiesis with minimal dyspoiesis. There are a few hypolobated neutrophils noted. The findings do not meet the criteria for myelodysplastic neoplasm. However, the possibility of an evolving myelodysplastic syndrome should be considered. By flow cytometry, a minute population of CD10 positive monoclonal B cell is detected. This population is not morphologically evident in the bone marrow. A single, small benign appearing lymphoid aggregate is noted in the cell clot. There are no atypical paratrabecular lymphoid aggregates seen. Plasma cells comprise approximately 1-3% of the total marrow cellularity and are polytypic by in situ hybridization and flow cytometry studies. The flow cytometry findings may represent monoclonal B cell lymphocytosis of undetermined significance or possibly a low level involvement by B cell lymphoma in the bone marrow. Correlation with clinical findings looking for lymphadenopathy with sampling of the lymph nodes is recommended to definitely exclude or rule in the possibility of involvement by a lymphoproliferative disorder. 12/2018: . 68-year-old woman with worsening anemia and monoclonal gammopathy. MGUS Diagnosis: Bone marrow aspirate, biopsy, cell clot and peripheral blood: - Peripheral blood with moderate to severe macrocytic anemia and mild thrombocytosis. - HYPERCELLULAR BONE MARROW WITH TRILINEAGE HEMATOPOIESIS, MILD ERYTHROID HYPERPLASIA, TRILINEAGE DYSPOIESIS WITH MILDLY INCREASED AND CLUSTERED MEGAKARYOCYTES AND INCREASED RINGED SIDEROBLASTS. (SEE COMMENT) - Minute population of CD10 positive monoclonal B-cells detected by flow cytometry. - No evidence of acute leukemia or plasma cell dyscrasia. Comment: Overall the bone marrow is hypercellular for the patient's age with trilineage hematopoiesis, mild erythroid hyperplasia, trilineage dyspoiesis including mildly increased and focally clustered megakaryocytes and increased ringed sideroblasts with no evidence of acute leukemia or plasma cell dyscrasia. Flow cytometry identifies a minute population of CD10 positive monoclonal B-cells which remain unchanged from the previous bone marrow biopsy. When compared to the previous bone marrow biopsy there is an increase in dyspoiesis, increased and focally clustered megakaryocytes and increased ringed sideroblasts. Scattered basophils/mast cells are noted on the aspirate smear and mildly increased eosinophils are noted on the core biopsy and clot sections. The findings are worrisome for a myelodysplastic syndrome or a mixed myelodysplastic syndrome / myeloproliferative neoplasm. Cytogenetics reveal a normal female karyotype. Correlation with clinical history and additional laboratory data is required. PE: GEN: ill, overweight, family present HEENT: atraumatic, PERRL LUNGS: tachypneic, NC 3L, diminished anteriorly HEART: RRR ABD: NABS, S/NT EXTREMITY: mild RLE edema SKIN: pale NEURO/PSYCH: A & O 3 A/P: A/P: CAP, leukocytosis Macrocytic anemia, thrombocytosis - Hgb lower than baseline without obvious bleeding, h/o abnormal bone marrow biopsies/MGUS CRC screen - none H/o constipation, rare solid food dysphagia Chronic back pain, NSAID use -- Treat pneumonia, await hematology thoughts. Give acid-fitting room associate, check anemia parameters. EDER KEATING Aug 28, 2019 12:04
[2019-08-28] MEDS ORDERED: POLYETHYLENE GLYCOL 3350 17 GM PACKET. PO PRN (12:15)
[2019-08-28] MEDS: PANTOPRAZOLE 40 MG TABLET.DR. PO SCH (13:43)
--- NOTE | 2019-08-28 14:29 | NUR ---
Bedside Swallow Evaluation completed. Please refer to full report in intervention section for additional information. Impressions: Mild-moderate oropharyngeal dysphagia w/ suspected esophageal swallowing concerns w/ solid consistencies. Pt's edentulous status and pt's frequent O2 desaturation w/ prolonged chewing contribute to aspiration risk. Modified diet of dysphagia I (puree) and honey thick liquids improved swallow function, decreased s/s aspiration, and decreased pt reports of food getting stuck in throat. Recommendations: Dysphagia I diet w/ honey thick liquids/no straws. ST f/u for dysphagia.
--- NOTE | 2019-08-28 16:19 | NUR ---
Received patient transfer from ICU room 108, will continue to monitor patient.
[2019-08-28] MEDS ORDERED: VANCOMYCIN 1.5 GM in IV NORMAL SALINE 500ML BAG 500 ML IV SCH (18:00)
[2019-08-29] VITALS (12 sets, daily range): BP systolic 93–153; BP diastolic 32–100
--- NOTE | 2019-08-29 00:39 | CONS ---
DATE OF CONSULTATION: 08/28/2019 MEDICAL ONCOLOGY CONSULTATION REPORT REQUESTING PHYSICIAN: Carlito Cruz MD REASON FOR CONSULTATION: Leukocytosis in a patient with history of myelodysplastic syndrome. HISTORY OF PRESENT ILLNESS: The patient is a 69-year-old female who has been seeing Dr. Evie Solis for management of leukocytosis, monoclonal gammopathy of undetermined significance and myelodysplastic syndrome. The patient has had history of mild thrombocytosis and leukocytosis. She underwent a bone marrow biopsy on 10/31/2017 which showed markedly hypercellular with minimal dyspoiesis, not meeting criteria for MDS and flow cytometry revealed a minute population of lambda monoclonal CD10 positive B-cells. A 0.5% of the cells are present concerning for evolving MDS. Monoclonal B lymphocytosis of undetermined significance versus possible non-Hodgkin's lymphoma was noted. Cytogenetics were normal. BCR/ABL was negative and JAK2 was also negative. She was started on Aranesp in 01/2019 with excellent response. She was also started on anagrelide which she did not tolerate and it was stopped. Anagrelide was given for management of thrombocytosis. She was admitted to [facility] on 08/27/2019 with 1-week history of cough, fever and chills and poor appetite. Influenza screen was negative. WBC was 52,000 with a hemoglobin of 6.5 and she received 1 unit of PRBC transfusion. Her previous WBC count was 13,000. She was admitted for management of bacteremia, sepsis and pneumonia. I was asked to see the patient for evaluation of leukocytosis. WBC count was 52.7 on 08/27/2019 with 36% bands, 1% metamyelocytes, 3% myelocytes and 1% promyelocytes. There was evidence of toxic granulations on peripheral smear review. WBC improved to 48.9 on 08/28/2019. She received 1 unit of PRBC transfusion on 08/27/2019. Hemoglobin improved from 6.5-7.0. She denies nosebleeds or gum bleeding. No hematemesis, melena or hematochezia. No hemoptysis or hematuria. PAST MEDICAL HISTORY: Positive for hypertension, hypothyroidism, Parkinson's disease, hyperlipidemia, asthma, morbid obesity, anemia. She has had lung nodule, which was biopsied and negative for malignancy. PAST SURGICAL HISTORY: She has had hysterectomy, right-sided salpingo-oophorectomy, deep brain stimulator placed. SOCIAL HISTORY: Negative for smoking, alcohol use. She does smoke marijuana off and on. ALLERGIES: No known drug allergies. CURRENT MEDICATIONS: Reviewed. REVIEW OF SYSTEMS: As per HPI, all other systems reviewed and are negative. PHYSICAL EXAMINATION: GENERAL: Alert, oriented female, not in distress. VITAL SIGNS: Stable, afebrile. HEENT: Both pupils are round and reacting. No conjunctival lesion, no lesion in the mouth. NECK: Supple, no JVP, no lymphadenopathy. LUNGS: Clear. HEART: S1, S2 regular. No gallop or murmur. ABDOMEN: Soft, nontender, no organomegaly. EXTREMITIES: No edema. The patient does have right leg bigger than the left. She says that is the way it is for years. There is no erythema. There is no cyanosis. NEUROLOGIC: Alert, awake and appropriate. No focal neurologic deficit. LABORATORY DATA: White count is 52.7, hemoglobin 6.5, and platelets are 704,000. BUN and creatinine is 38 and 1.4. Lactic acid 1.4. Urinalysis unremarkable. Influenza screen negative. Chest x-ray showed consolidation in the right upper lobe and bibasilar lung changes/pneumonia versus atelectasis. IMPRESSION AND PLAN: 1. Myelodysplastic syndrome as suggested by bone marrow biopsy on 12/27/2018. She has been treated with Aranesp. Agreed to monitor CBC and transfuse PRBC as needed to keep the hemoglobin at or above 7. No evidence of bleeding. She will follow up with Dr. Solis upon discharge. 2. Leukocytosis, significantly worse. There is evidence of elevated bands, promyelocytes, myelocytes, metamyelocytes and toxic granulations suggestive of sepsis. I do not suspect a leukemia since she has had a bone marrow biopsy recently. However, I have discussed the case with pathologist, Dr. Elier Delgado, who will review the peripheral smear. I reviewed the bone marrow results from 12/27/2018 which showed worsening dyspoiesis when compared to the prior bone marrow biopsy, worrisome for myelodysplastic syndrome or a mixed myelodysplastic syndrome/myeloproliferative neoplasm. 3. Anemia. Continue to monitor and transfuse as needed. Hemoglobin 7.0 after 1 unit of PRBC transfusion. 4. Pneumonia and sepsis. Continue management per Dr. Carlito Cruz and Infectious Diseases and Pulmonary Medicine. MARIO DE MD DR: MARIBEL/maurilio JOB#: [id number] / [id number] CARLITO Horton MD
[2019-08-29] MEDS: POTASSIUM CL 20MEQ D5-0.45NACL 1,000 ML IV SCH ×2 (02:35→19:58)
[2019-08-29] MEDS: HYDROcodone/APAP 7.5/325MG 1 TAB TABLET PO PRN ×4 (02:36→23:31)
[2019-08-29 04:57] LABS: BASO # 0.2 x10^3/uL (0.0-0.2); BASO % 0 % (0-3); EOS % 0 % (0-3); LYMPH % 6 % (24-48); MEAN CORPUSCULAR HEMOGLOBIN 32 pg (25-35); MEAN CORPUSCULAR HGB CONC 31 g/dL (31-37); MEAN CORPUSCULAR VOLUME 101 fL (79-100); MONO # 1.3 x10^3/uL (0.0-1.1); MONO % 3 % (0-9); NEUT # 47.8 x10^3/uL (1.8-7.7); NEUT % 91 % (31-73); PLATELET COUNT 671 x10^3/uL (140-400); RED BLOOD COUNT 2.18 x10^6/uL (3.50-5.40); RED CELL DISTRIBUTION WIDTH 23.6 % (11.5-14.5)
[2019-08-29 05:04] LABS: HEMOGLOBIN 6.9 g/dL (12.0-15.5)
[2019-08-29] MEDS: PIPERACILLIN/TAZOBACTAM 3.375 GM in IV NORMAL SALINE 50ML 50 ML IV SCH ×4 (05:09→23:31)
[2019-08-29] MEDS: rOPINIRole 1 MG TABLET. PO SCH ×5 (05:10→19:55)
[2019-08-29] MEDS: CARBIDOPA/LEVODOPA CR 25/100MG TABLET.SA. PO SCH ×5 (05:10→19:54)
[2019-08-29 05:18] LABS: CREATININE 1.3 mg/dL (0.6-1.0); GFR 40.7; POTASSIUM 3.9 mmol/L (3.5-5.1)
[2019-08-29] MEDS: ALBUTEROL SULFATE 2.5 MG/3 ML NEBU. NEB SCH ×4 (07:44→19:44)
[2019-08-29] MEDS: INSULIN LISPRO 300 UNITS/3 ML VIAL. SQ SCH ×3 (08:00→17:00)
--- NOTE | 2019-08-29 09:06 | PDOC ---
Infectious Disease Note Subjective Subjective says not feeling well , though out of ICU ROS ROS no n/v/d/sob Vital Sign Vital Signs Vital Signs Date Time Temp Pulse Resp B/P (MAP) Pulse Ox O2 Delivery O2 Flow Rate FiO2 08/29/19 07:45 93 Nasal Cannula 2.0 08/29/19 07:00 98.1 91 18 131/100 (110) 98.1 Physical Exam PHYSICAL EXAM GENERAL: Alert, oriented female, not in distress. VITAL SIGNS: Stable, afebrile. HEENT: Both pupils are round and reacting. No conjunctival lesion, no lesion in the mouth. NECK: Supple, no JVP, no lymphadenopathy. LUNGS: Clear. HEART: S1, S2 regular. No gallop or murmur. ABDOMEN: Soft, nontender, no organomegaly. EXTREMITIES: No edema. The patient does have right leg bigger than the left. She says that is the way it is for years. There is no erythema. There is no cyanosis. NEUROLOGIC: Alert, awake and appropriate. No focal neurologic deficit. Labs Lab Laboratory Tests Test 08/28/19 12:00 08/28/19 16:20 08/28/19 20:47 08/29/19 04:15 Glucose (Fingerstick) 211 mg/dL (70-99) 217 mg/dL (70-99) 194 mg/dL (70-99) White Blood Count 52.3 x10^3/uL (4.0-11.0) Red Blood Count 2.18 x10^6/uL (3.50-5.40) Hemoglobin 6.9 g/dL (12.0-15.5) Hematocrit 22.0 % (36.0-47.0) Mean Corpuscular Volume 101 fL (79-100) Mean Corpuscular Hemoglobin 32 pg (25-35) Mean Corpuscular Hemoglobin Concent 31 g/dL (31-37) Red Cell Distribution Width 23.6 % (11.5-14.5) Platelet Count 671 x10^3/uL (140-400) Neutrophils (%) (Auto) 91 % (31-73) Lymphocytes (%) (Auto) 6 % (24-48) Monocytes (%) (Auto) 3 % (0-9) Eosinophils (%) (Auto) 0 % (0-3) Basophils (%) (Auto) 0 % (0-3) Neutrophils # (Auto) 47.8 x10^3/uL (1.8-7.7) Lymphocytes # (Auto) 3.0 x10^3/uL (1.0-4.8) Monocytes # (Auto) 1.3 x10^3/uL (0.0-1.1) Eosinophils # (Auto) 0.0 x10^3/uL (0.0-0.7) Basophils # (Auto) 0.2 x10^3/uL (0.0-0.2) Sodium Level 147 mmol/L (136-145) Potassium Level 3.9 mmol/L (3.5-5.1) Chloride Level 110 mmol/L (98-107) Carbon Dioxide Level 28 mmol/L (21-32) Anion Gap 9 (6-14) Blood Urea Nitrogen 39 mg/dL (7-20) Creatinine 1.3 mg/dL (0.6-1.0) Estimated GFR (Cockcroft-Gault) 40.7 Glucose Level 171 mg/dL (70-99) Calcium Level 8.0 mg/dL (8.5-10.1) Test 08/29/19 07:21 Glucose (Fingerstick) 144 mg/dL (70-99) Micro LOOD CULTURE Final GRAM POSITIVE COCCI IN PAIRS AND CHAINS, SUGGESTIVE OF STREP, IN 4 OF 4 BOTTLES, TWO SETS DRAWN. CALLED T0 VITOR LU RN IN ICU AT 8:40 ON 08/28/19 DW MT SENT TO [facility] FOR FURTHER WORKUP. Objective Assessment IMPRESSION: 1. Community-acquired pneumonia. 2. Leukocytosis/leukemoid reaction. 3. Acute kidney injury. 4. Hypoxemia. 5. Parkinson's disease. 6. Hypertension. 7. Hypothyroidism. 8. Strep 4/4, likely strep pneumo Plan Plan of Care cont antibiotics d/c vanc cont zosyn d/w ROSSY Garcia MD Aug 29, 2019 09:06
[2019-08-29] MEDS: PANTOPRAZOLE 40 MG TABLET.DR. PO SCH (09:24)
[2019-08-29] MEDS: buPROPion XL 150 MG TAB.ER.24H. PO SCH (09:24)
[2019-08-29] MEDS: POLYETHYLENE GLYCOL 3350 17 GM PACKET. PO SCH (09:26)
[2019-08-29] MEDS: MULTIVITAMIN with MINERAL TABLET. PO SCH (09:27)
[2019-08-29] MEDS: LEVOTHYROXINE 175 MCG TABLET PO SCH (09:27)
[2019-08-29] MEDS: AZITHROMYCIN 500 MG in IV NORMAL SALINE 250ML 250 ML IV SCH (09:30)
[2019-08-29] MEDS: OMEGA-3 FATTY ACIDS/FISH OIL 1,000 MG CAPSULE. PO SCH (09:31)
[2019-08-29] MEDS: OXYBUTYNIN CHLORIDE 5 MG TABLET PO SCH ×3 (09:34→19:54)
[2019-08-29] MEDS ORDERED: MAGNESIUM CITRATE 296 ML SOLUTION. PO ONE (10:15)
--- NOTE | 2019-08-29 10:20 | PDOC ---
PROGRESS NOTES Subjective Subjective discussed with patient and family. feels the same . dry cough. discussed elevated blood sugars. hgb a1 c pending. lab reviewed. Objective Objective Vital Signs Date Time Temp Pulse Resp B/P (MAP) Pulse Ox O2 Delivery O2 Flow Rate FiO2 08/29/19 07:45 93 Nasal Cannula 2.0 08/29/19 07:00 98.1 91 18 131/100 (110) 98.1 Intake and Output 08/29/19 07:00 Intake Total 600 ml Output Total 1150 ml Balance -550 ml Intake Oral 600 ml Output Urine Total 1150 ml Physical Exam Abdomen: Soft Heart: Regular rate, Normal S1, Normal S2 Extremities: Other (trace leg edema) General: Alert HEENT: Atraumatic Lungs: Other (crackles right base) Neuro: Normal speech Psych/Mental Status: Mental status NL Skin: No rashes Assessment Assessment Problems1. suspected Strep pneumonia. 2. Suspect Streptococcus bacteremia, recent sepsis 3. Acute hypoxic respiratory failure. 4. Myelodysplasia with a leukemoid reaction. 5. Chronic anemia. 7. Parkinson's disease. 8. Hypertension. 9. Hypothyroidism. oropharyngeal dysphagia constipation Medical Problems: (1) NATALIE (acute kidney injury) Status: Acute (2) Anemia Status: Acute (3) Hypokalemia Status: Acute (4) Hypoxia Status: Acute (5) Pneumonia Status: Acute Plan Plan of Care continue iv zosyn and zithromax continue oxygen and nebulizer rx d/c weiss PT and OT and ST lovenox for dvt prophylaxis pureed HTL ada diet humalog sliding scale hgb a1c pending magnesium citrate today Comment Review of Relevant I have reviewed the following items deepak (where applicable) has been applied. Labs Laboratory Tests Test 08/27/19 16:52 08/27/19 17:06 08/27/19 17:30 08/27/19 21:45 White Blood Count 52.7 x10^3/uL (4.0-11.0) Red Blood Count 2.04 x10^6/uL (3.50-5.40) Hemoglobin 6.5 g/dL (12.0-15.5) Hematocrit 20.8 % (36.0-47.0) Mean Corpuscular Volume 102 fL (79-100) Mean Corpuscular Hemoglobin 32 pg (25-35) Mean Corpuscular Hemoglobin Concent 31 g/dL (31-37) Red Cell Distribution Width 22.2 % (11.5-14.5) Platelet Count 704 x10^3/uL (140-400) Neutrophils (%) (Auto) 92 % (31-73) Lymphocytes (%) (Auto) 5 % (24-48) Monocytes (%) (Auto) 2 % (0-9) Eosinophils (%) (Auto) 0 % (0-3) Basophils (%) (Auto) 1 % (0-3) Neutrophils # (Auto) 48.5 x10^3/uL (1.8-7.7) Lymphocytes # (Auto) 2.6 x10^3/uL (1.0-4.8) Monocytes # (Auto) 1.3 x10^3/uL (0.0-1.1) Eosinophils # (Auto) 0.0 x10^3/uL (0.0-0.7) Basophils # (Auto) 0.3 x10^3/uL (0.0-0.2) Segmented Neutrophils % 49 % (35-66) Band Neutrophils % 36 % (0-9) Lymphocytes % 8 % (24-48) Monocytes % 2 % (0-10) Metamyelocytes % 1 % (0-0) Myelocytes % 3 % (0-0) Promyelocytes % 1 % (0-0) Toxic Granulation Mod Dohle Bodies Few Platelet Estimate Increased (ADEQUATE) Large Platelets Few Polychromasia Slight Hypochromasia Slight Poikilocytosis Slight Anisocytosis Mod Macrocytosis Slight Target Cells Occ Tear Drop Cells Few Ovalocytes Few Schistocytes Occ Prothrombin Time 15.9 SEC (11.7-14.0) Prothromb Time International Ratio 1.3 (0.8-1.1) Activated Partial Thromboplast Time 35 SEC (24-38) Sodium Level 139 mmol/L (136-145) Potassium Level 3.1 mmol/L (3.5-5.1) Chloride Level 103 mmol/L (98-107) Carbon Dioxide Level 25 mmol/L (21-32) Anion Gap 11 (6-14) Blood Urea Nitrogen 38 mg/dL (7-20) Creatinine 1.4 mg/dL (0.6-1.0) Estimated GFR (Cockcroft-Gault) 37.4 BUN/Creatinine Ratio 27 (6-20) Glucose Level 157 mg/dL (70-99) Lactic Acid Level 1.4 mmol/L (0.4-2.0) Calcium Level 8.4 mg/dL (8.5-10.1) Magnesium Level 2.0 mg/dL (1.8-2.4) Total Bilirubin 0.9 mg/dL (0.2-1.0) Aspartate Amino Transf (AST/SGOT) 16 U/L (15-37) Alanine Aminotransferase (ALT/SGPT) < 6 U/L (14-59) Alkaline Phosphatase 160 U/L (46-116) Troponin I Quantitative < 0.017 ng/mL (0.000-0.055) YU-Vae-D-Type Natriuretic Peptide 810 pg/mL (0-124) Total Protein 6.1 g/dL (6.4-8.2) Albumin 2.4 g/dL (3.4-5.0) Albumin/Globulin Ratio 0.6 (1.0-1.7) Procalcitonin 1.86 ng/mL (0.00-0.10) Influenza Type A Antigen Negative (NEGATIVE) Influenza Type B Antigen Negative (NEGATIVE) O2 Saturation 90 % (92-99) Arterial Blood pH 7.44 (7.35-7.45) Arterial Blood pCO2 at Patient Temp 37 mmHg (35-46) Arterial Blood pO2 at Patient Temp 60 mmHg (65-108) Arterial Blood HCO3 24 mmol/L (21-28) Arterial Blood Base Excess 0 mmol/L (-3-3) Oxyhemoglobin 88.5 % Methemoglobin 0.8 % (0.0-1.9) Carbon Monoxide, Quantitative 0.3 % (0.0-1.9) FiO2 26 Urine Collection Type U cath Urine Color Yellow Urine Clarity Cloudy Urine pH 6.0 Urine Specific [place] 1.010 Urine Protein Negative mg/dL (NEG-TRACE) Urine Glucose (UA) Negative mg/dL (NEG) Urine Ketones (Stick) Negative mg/dL (NEG) Urine Blood Negative (NEG) Urine Nitrite Negative (NEG) Urine Bilirubin Negative (NEG) Urine Urobilinogen Dipstick 1.0 mg/dL (0.2 mg/dL) Urine Leukocyte Esterase Negative (NEG) Urine RBC 0 /HPF (0-2) Urine WBC 0 /HPF (0-4) Urine Squamous Epithelial Cells Few /LPF Urine Amorphous Sediment Present /HPF Urine Bacteria 0 /HPF (0-FEW) Test 08/28/19 06:25 08/28/19 12:00 08/28/19 16:20 08/28/19 20:47 White Blood Count 48.9 x10^3/uL (4.0-11.0) Red Blood Count 2.18 x10^6/uL (3.50-5.40) Hemoglobin 7.0 g/dL (12.0-15.5) Hematocrit 21.8 % (36.0-47.0) Mean Corpuscular Volume 100 fL (79-100) Mean Corpuscular Hemoglobin 32 pg (25-35) Mean Corpuscular Hemoglobin Concent 32 g/dL (31-37) Red Cell Distribution Width 23.2 % (11.5-14.5) Platelet Count 620 x10^3/uL (140-400) Neutrophils (%) (Auto) 94 % (31-73) Lymphocytes (%) (Auto) 4 % (24-48) Monocytes (%) (Auto) 1 % (0-9) Eosinophils (%) (Auto) 0 % (0-3) Basophils (%) (Auto) 0 % (0-3) Neutrophils # (Auto) 46.0 x10^3/uL (1.8-7.7) Lymphocytes # (Auto) 2.1 x10^3/uL (1.0-4.8) Monocytes # (Auto) 0.6 x10^3/uL (0.0-1.1) Eosinophils # (Auto) 0.0 x10^3/uL (0.0-0.7) Basophils # (Auto) 0.1 x10^3/uL (0.0-0.2) Sodium Level 142 mmol/L (136-145) Potassium Level 3.4 mmol/L (3.5-5.1) Chloride Level 107 mmol/L (98-107) Carbon Dioxide Level 25 mmol/L (21-32) Anion Gap 10 (6-14) Blood Urea Nitrogen 36 mg/dL (7-20) Creatinine 1.3 mg/dL (0.6-1.0) Estimated GFR (Cockcroft-Gault) 40.7 Glucose Level 248 mg/dL (70-99) Calcium Level 8.1 mg/dL (8.5-10.1) Iron Level 13 ug/dL (50-170) Total Iron Binding Capacity 100 ug/dL (250-450) Iron Saturation 13 % (15-34) Vitamin B12 Level 1101 pg/mL (247-911) Low Molecular Weight Heparin < 0.10 IU/mL Glucose (Fingerstick) 211 mg/dL (70-99) 217 mg/dL (70-99) 194 mg/dL (70-99) Test 08/29/19 04:15 08/29/19 07:21 White Blood Count 52.3 x10^3/uL (4.0-11.0) Red Blood Count 2.18 x10^6/uL (3.50-5.40) Hemoglobin 6.9 g/dL (12.0-15.5) Hematocrit 22.0 % (36.0-47.0) Mean Corpuscular Volume 101 fL (79-100) Mean Corpuscular Hemoglobin 32 pg (25-35) Mean Corpuscular Hemoglobin Concent 31 g/dL (31-37) Red Cell Distribution Width 23.6 % (11.5-14.5) Platelet Count 671 x10^3/uL (140-400) Neutrophils (%) (Auto) 91 % (31-73) Lymphocytes (%) (Auto) 6 % (24-48) Monocytes (%) (Auto) 3 % (0-9) Eosinophils (%) (Auto) 0 % (0-3) Basophils (%) (Auto) 0 % (0-3) Neutrophils # (Auto) 47.8 x10^3/uL (1.8-7.7) Lymphocytes # (Auto) 3.0 x10^3/uL (1.0-4.8) Monocytes # (Auto) 1.3 x10^3/uL (0.0-1.1) Eosinophils # (Auto) 0.0 x10^3/uL (0.0-0.7) Basophils # (Auto) 0.2 x10^3/uL (0.0-0.2) Sodium Level 147 mmol/L (136-145) Potassium Level 3.9 mmol/L (3.5-5.1) Chloride Level 110 mmol/L (98-107) Carbon Dioxide Level 28 mmol/L (21-32) Anion Gap 9 (6-14) Blood Urea Nitrogen 39 mg/dL (7-20) Creatinine 1.3 mg/dL (0.6-1.0) Estimated GFR (Cockcroft-Gault) 40.7 Glucose Level 171 mg/dL (70-99) Calcium Level 8.0 mg/dL (8.5-10.1) Glucose (Fingerstick) 144 mg/dL (70-99) Laboratory Tests Test 08/28/19 12:00 08/28/19 16:20 08/28/19 20:47 08/29/19 04:15 Glucose (Fingerstick) 211 mg/dL (70-99) 217 mg/dL (70-99) 194 mg/dL (70-99) White Blood Count 52.3 x10^3/uL (4.0-11.0) Red Blood Count 2.18 x10^6/uL (3.50-5.40) Hemoglobin 6.9 g/dL (12.0-15.5) Hematocrit 22.0 % (36.0-47.0) Mean Corpuscular Volume 101 fL (79-100) Mean Corpuscular Hemoglobin 32 pg (25-35) Mean Corpuscular Hemoglobin Concent 31 g/dL (31-37) Red Cell Distribution Width 23.6 % (11.5-14.5) Platelet Count 671 x10^3/uL (140-400) Neutrophils (%) (Auto) 91 % (31-73) Lymphocytes (%) (Auto) 6 % (24-48) Monocytes (%) (Auto) 3 % (0-9) Eosinophils (%) (Auto) 0 % (0-3) Basophils (%) (Auto) 0 % (0-3) Neutrophils # (Auto) 47.8 x10^3/uL (1.8-7.7) Lymphocytes # (Auto) 3.0 x10^3/uL (1.0-4.8) Monocytes # (Auto) 1.3 x10^3/uL (0.0-1.1) Eosinophils # (Auto) 0.0 x10^3/uL (0.0-0.7) Basophils # (Auto) 0.2 x10^3/uL (0.0-0.2) Sodium Level 147 mmol/L (136-145) Potassium Level 3.9 mmol/L (3.5-5.1) Chloride Level 110 mmol/L (98-107) Carbon Dioxide Level 28 mmol/L (21-32) Anion Gap 9 (6-14) Blood Urea Nitrogen 39 mg/dL (7-20) Creatinine 1.3 mg/dL (0.6-1.0) Estimated GFR (Cockcroft-Gault) 40.7 Glucose Level 171 mg/dL (70-99) Calcium Level 8.0 mg/dL (8.5-10.1) Test 08/29/19 07:21 Glucose (Fingerstick) 144 mg/dL (70-99) Microbiology 08/27/19 Blood Culture - Final, Complete Medications Current Medications Methylprednisolone Sodium Succinate (SOLU-Medrol 125MG VIAL) 125 mg 1X ONCE IV Last administered on 08/27/19at 17:04; Start 08/27/19 at 16:45; Stop 08/27/19 at 16:46; Status DC Albuterol/ Ipratropium (Duoneb) 3 ml 1X ONCE NEB Last administered on 08/27/19at 17:58; Start 08/27/19 at 16:45; Stop 08/27/19 at 16:46; Status DC Piperacillin Sod/ Tazobactam Sod 3.375 gm/Sodium Chloride 50 ml @ 100 mls/hr 1X STAT IV Last administered on 08/27/19at 18:32; Start 08/27/19 at 17:17; Stop 08/27/19 at 17:46; Status DC Vancomycin HCl 1.5 gm/Sodium Chloride 500 ml @ 250 mls/hr 1X STAT IV Last administered on 08/27/19at 18:32; Start 08/27/19 at 17:17; Stop 08/27/19 at 19:16; Status DC Sodium Chloride 1,000 ml @ 1,000 mls/hr 1X STAT IV ; Start 08/27/19 at 17:17; Stop 08/27/19 at 17:36; Status DC Sodium Chloride 1,000 ml @ 1,000 mls/hr 1X STAT IV Last administered on 08/27/19at 17:40; Start 08/27/19 at 17:17; Stop 08/27/19 at 18:16; Status DC Potassium Chloride (Klor-Con) 40 meq 1X STAT PO ; Start 08/27/19 at 17:51; Stop 08/27/19 at 17:54; Status DC Ondansetron HCl (Zofran) 4 mg PRN Q8HRS PRN IV NAUSEA/VOMITING; Start 08/27/19 at 18:30; Stop 08/28/19 at 18:29; Status DC Acetaminophen (Tylenol) 650 mg PRN Q4HRS PRN PO FEVER; Start 08/27/19 at 18:30; Stop 08/28/19 at 10:27; Status DC Albuterol/ Ipratropium (Duoneb) 3 ml RTQID NEB Last administered on 08/28/19at 15:46; Start 08/27/19 at 20:00; Stop 08/28/19 at 19:59; Status DC Potassium Chloride/Dextrose/ Sod Cl 1,000 ml @ 75 mls/hr [id number] IV Last administered on 08/28/19at 10:10; Start 08/27/19 at 21:00; Stop 08/28/19 at 10:25; Status DC Bupropion HCl (Wellbutrin Xl) 150 mg DAILY PO Last administered on 08/29/19at 09:24; Start 08/28/19 at 09:00 Acetaminophen/ Hydrocodone Bitart (Lortab 7.5/325) 0.5 tab PRN Q4HRS PRN PO MODERATE PAIN 4-6 Last administered on 08/28/19at 06:34; Start 08/28/19 at 00:00 Albuterol Sulfate (Ventolin Neb Soln) 2.5 mg PRN QID PRN NEB SHORTNESS OF BREATH Last administered on 08/28/19at 00:28; Start 08/28/19 at 00:30; Stop 08/28/19 at 10:25; Status DC Levothyroxine Sodium (Synthroid) 175 mcg DAILYAC PO Last administered on 08/29/19at 09:27; Start 08/28/19 at 07:30 Fish Oil (Fish Oil) 1 mg BID PO Last administered on 08/28/19at 20:42; Start 08/28/19 at 09:00; Stop 08/29/19 at 09:29; Status DC Oxybutynin Chloride (Ditropan) 5 mg TID PO ; Start 08/28/19 at 09:00; Stop 08/28/19 at 01:05; Status DC Polyethylene Glycol (miraLAX PACKET) 17 gm DAILY PO Last administered on 08/29/19at 09:26; Start 08/28/19 at 09:00 Ropinirole HCl (Requip) 3 mg 5XDAY PO ; Start 08/28/19 at 06:00; Stop 08/28/19 at 01:10; Status DC Non-Formulary Medication (Carbidopa/ Levodopa (Sinemet Cr 50-200 Tablet)) 1 each TID PO ; Start 08/28/19 at 09:00; Stop 08/28/19 at 00:19; Status DC Multivitamins (Thera M Plus) 1 tab DAILY PO Last administered on 08/29/19at 09:27; Start 08/28/19 at 09:00 Non-Formulary Medication (Safinamide Mesylate (Xadago)) 50 mg DAILY PO ; Start 08/28/19 at 09:00; Stop 08/28/19 at 08:59; Status DC Carbidopa/Levodopa (Sinemet Cr) 2 tab.sa 5XDAY PO Last administered on 08/29/19at 09:35; Start 08/28/19 at 06:00 Oxybutynin Chloride (Ditropan) 5 mg TID PO Last administered on 08/29/19at 09:34; Start 08/28/19 at 01:15 Ropinirole HCl (Requip) 3 mg 5XDAY PO Last administered on 08/29/19at 09:27; Start 08/28/19 at 01:15 Acetaminophen/ Hydrocodone Bitart (Lortab 7.5/325) 1 tab PRN Q4HRS PRN PO SEVERE PAIN 7-10 Last administered on 08/29/19at 02:36; Start 08/28/19 at 02:00 Magnesium Hydroxide (Milk Of Magnesia) 2,400 mg PRN DAILY PRN PO CONSTIPATION 1ST CHOICE; Start 08/28/19 at 03:30 Piperacillin Sod/ Tazobactam Sod (Zosyn Per Pharmacy) 1 each PRN DAILY PRN MC SEE COMMENTS; Start 08/28/19 at 06:45 Vancomycin HCl (Vanco Per Pharmacy) 1 each PRN DAILY PRN MC SEE COMMENTS Last administered on 08/28/19at 06:52; Start 08/28/19 at 06:45; Stop 08/28/19 at 07:43; Status DC Piperacillin Sod/ Tazobactam Sod 3.375 gm/Sodium Chloride 50 ml @ 100 mls/hr Q6HRS IV Last administered on 08/29/19at 05:09; Start 08/28/19 at 07:00 Vancomycin HCl 1.5 gm/Sodium Chloride 500 ml @ 250 mls/hr Q24H IV Last administered on 08/28/19at 16:52; Start 08/28/19 at 18:00; Stop 08/29/19 at 09:06; Status DC Vancomycin HCl (Vancomycin Trough Level) 1 each 1X ONCE MC ; Start 08/29/19 at 17:30; Stop 08/29/19 at 17:31; Status Cancel Azithromycin 500 mg/Sodium Chloride 250 ml @ 250 mls/hr Q24H IV Last administered on 08/29/19at 09:30; Start 08/28/19 at 08:00 Albuterol Sulfate (Ventolin Neb Soln) 2.5 mg RTQID NEB Last administered on 08/29/19at 07:44; Start 08/28/19 at 12:00 Enoxaparin Sodium (Lovenox 40mg Syringe) 40 mg Q24H SQ ; Start 08/28/19 at 11:00; Stop 08/28/19 at 10:38; Status DC Potassium Chloride (Klor-Con) 20 meq 1X ONCE PO Last administered on 08/28/19at 11:26; Start 08/28/19 at 11:00; Stop 08/28/19 at 11:01; Status DC Lactulose (Lactulose) 20 gm Q2H PO Last administered on 08/28/19at 11:53; Start 08/28/19 at 12:00; Stop 08/28/19 at 14:01; Status DC Acetaminophen (Tylenol) 650 mg PRN Q6HRS PRN PO MILD PAIN / TEMP; Start 08/28/19 at 10:30 Vancomycin HCl (Vanco Per Pharmacy) 1 each PRN DAILY PRN MC SEE COMMENTS; Start 08/28/19 at 10:45; Status Cancel Insulin Human Lispro (HumaLOG) 0-6 UNITS TIDWMEALS SQ Last administered on 08/28/19at 16:54; Start 08/28/19 at 12:00 Potassium Chloride/Dextrose/ Sod Cl 1,000 ml @ 60 mls/hr [id number] IV Last administered on 08/29/19at 02:35; Start 08/28/19 at 10:45 Enoxaparin Sodium (Lovenox 40mg Syringe) 40 mg Q24H SQ ; Start 08/28/19 at 21:00; Stop 08/28/19 at 10:50; Status DC Pantoprazole Sodium (Protonix) 40 mg DAILYAC PO Last administered on 08/29/19at 09:24; Start 08/28/19 at 12:15 Polyethylene Glycol (miraLAX PACKET) 17 gm PRN DAILY PRN PO CONSTIPATION; Start 08/28/19 at 12:15 Fish Oil (Fish Oil) 1,000 mg DAILY PO Last administered on 08/29/19at 09:31; Start 08/29/19 at 09:30 Active Scripts Active Requip (Ropinirole Hcl) 1 Mg Tablet 3 Mg PO QID@06,11,16,21 Miralax (Polyethylene Glycol 3350) 17 Gm Powd.pack 17 Gm PO DAILY Diazepam 5 Mg Tablet 5 Mg PO PRN BID PRN Reported Losartan-Hctz 50-12.5 Mg Tab (Losartan/Hydrochlorothiazide) 1 Each Tablet 1 Tab PO DAILY Xadago (Safinamide Mesylate) 50 Mg Tablet 50 Mg PO DAILY Levothyroxine Sodium 175 Mcg Tablet 175 Mcg PO DAILYAC Hydrocodone-Apap 7.5-325 (Hydrocodone Bit/Acetaminophen) 1 Each Tablet 0.5-1 Tab PO PRN Q4-6HRS PRN Proair Hfa Inhaler (Albuterol Sulfate) 8.5 Gm Hfa.aer.ad 8.5 Gm IH PRN Duoneb 0.5 Mg-3 Mg/3 Ml Soln (Ipratropium/Albuterol Sulfate) 3 Ml Ampul.neb 3 Ml IH PRN Bupropion Xl (Bupropion Hcl) 150 Mg Tab.er.24h 150 Mg PO DAILY Oxybutynin Chloride 5 Mg Tablet 5 Mg PO TID Sinemet Cr 50-200 Tablet (Carbidopa/Levodopa) 1 Each Tablet.er 1 Each PO TID Daily Vitamin (Multivitamin) 1 Each Tablet 1 Each PO DAILY Fish Oil 1,000 Mg Capsule ([place]-3 Fatty Acids/Fish Oil) 1 Each Capsule 1 Each PO BID Vitals/I & O Vital Sign - Last 24 Hours 08/28/19 08/28/19 08/28/19 08/28/19 11:00 12:00 12:00 12:07 Temp 97.9 97.9 Pulse 88 95 Resp 19 20 B/P (MAP) 99/60 (73) 107/58 (74) Pulse Ox 100 91 93 O2 Delivery Nasal Cannula Room Air Room Air Room Air O2 Flow Rate 3.0 08/28/19 08/28/19 08/28/19 08/28/19 15:00 15:47 19:00 20:10 Temp 98.2 98.2 Pulse 92 93 Resp 23 16 B/P (MAP) 112/59 (76) 126/54 (78) Pulse Ox 100 92 94 O2 Delivery Nasal Cannula Room Air Room Air Nasal Cannula O2 Flow Rate 3.0 2.0 08/28/19 08/28/19 08/28/19 08/28/19 20:41 21:41 21:56 23:00 Temp 98.1 98.1 Pulse 92 Resp 16 B/P (MAP) 133/62 (85) Pulse Ox 94 92 95 O2 Delivery Nasal Cannula Nasal Cannula Room Air Nasal Cannula O2 Flow Rate 2.0 2.0 08/29/19 08/29/19 08/29/19 08/29/19 02:36 03:00 03:36 07:00 Temp 98.1 98.1 98.1 98.1 Pulse 89 91 Resp 18 18 B/P (MAP) 153/64 (93) 131/100 (110) Pulse Ox 95 95 96 O2 Delivery Nasal Cannula Nasal Cannula Nasal Cannula Nasal Cannula O2 Flow Rate 2.0 2.0 2.0 2.0 08/29/19 07:45 Pulse Ox 93 O2 Delivery Nasal Cannula O2 Flow Rate 2.0 Intake and Output 08/28/19 08/28/19 08/29/19 15:00 23:00 07:00 Intake Total 240 ml 360 ml Output Total 500 ml 650 ml Balance -500 ml 240 ml -290 ml YVETTE MAZARIEGOS MD Aug 29, 2019 10:20
--- NOTE | 2019-08-29 10:51 | PDOC ---
Subjective: Subjective: Breathing not great but maybe a little better. Tolerating dysphagia diet. Hasn't stooled - family says was told Miralax would work right away and it didn't. Objective: Vital Signs: Vital Signs Date Time Temp Pulse Resp B/P (MAP) Pulse Ox O2 Delivery O2 Flow Rate FiO2 08/29/19 07:45 93 Nasal Cannula 2.0 08/29/19 07:00 98.1 91 18 131/100 (110) 98.1 Labs: Laboratory Tests Test 08/28/19 12:00 08/28/19 16:20 08/28/19 20:47 08/29/19 04:15 Glucose (Fingerstick) 211 mg/dL 217 mg/dL 194 mg/dL White Blood Count 52.3 x10^3/uL Red Blood Count 2.18 x10^6/uL Hemoglobin 6.9 g/dL Hematocrit 22.0 % Mean Corpuscular Volume 101 fL Mean Corpuscular Hemoglobin 32 pg Mean Corpuscular Hemoglobin Concent 31 g/dL Red Cell Distribution Width 23.6 % Platelet Count 671 x10^3/uL Neutrophils (%) (Auto) 91 % Lymphocytes (%) (Auto) 6 % Monocytes (%) (Auto) 3 % Eosinophils (%) (Auto) 0 % Basophils (%) (Auto) 0 % Neutrophils # (Auto) 47.8 x10^3/uL Lymphocytes # (Auto) 3.0 x10^3/uL Monocytes # (Auto) 1.3 x10^3/uL Eosinophils # (Auto) 0.0 x10^3/uL Basophils # (Auto) 0.2 x10^3/uL Sodium Level 147 mmol/L Potassium Level 3.9 mmol/L Chloride Level 110 mmol/L Carbon Dioxide Level 28 mmol/L Anion Gap 9 Blood Urea Nitrogen 39 mg/dL Creatinine 1.3 mg/dL Estimated GFR (Cockcroft-Gault) 40.7 Glucose Level 171 mg/dL Calcium Level 8.0 mg/dL Test 08/29/19 07:21 Glucose (Fingerstick) 144 mg/dL BLOOD CULTURE Final GRAM POSITIVE COCCI IN PAIRS AND CHAINS, SUGGESTIVE OF STREP, Imaging: Bedside Swallow Evaluation completed. Please refer to full report in intervention section for additional information. Impressions: Mild-moderate oropharyngeal dysphagia w/ suspected esophageal swallowing concerns w/ solid consistencies. Pt's edentulous status and pt's frequent O2 desaturation w/ prolonged chewing contribute to aspiration risk. Modified diet of dysphagia I (puree) and honey thick liquids improved swallow function, decreased s/s aspiration, and decreased pt reports of food getting stuck in throat. Recommendations: Dysphagia I diet w/ honey thick liquids/no straws. ST f/u for dysphagia. PE: GEN: NAD - up in chair - many family members in room LUNGS: some tachypnea (less than yesterday), able to speak several words at a time, has NC, diminished anteriorly HEART: RRR ABD: BS+, soft, non-tender NEURO/PSYCH: A & O 3 A/P: CAP, leukocytosis, GPC bacteremia MDS, anemia - another transfusion ordered Dysphagia Constipation -- Continue PPI. Would benefit from 'scopes eventually - needs improvement in pulm status first. Wants to try Dulcolax in addition to Miralax, will add. EDER KEATING Aug 29, 2019 10:51
[2019-08-29] MEDS ORDERED: BISACODYL 5 MG TABLET.DR. PO ONE (11:00)
--- NOTE | 2019-08-29 11:08 | PDOC ---
PROGRESS NOTES Subjective Subjective HPI - f/u of Leukocytosis ROS - no CP Objective Objective Vital Signs Date Time Temp Pulse Resp B/P (MAP) Pulse Ox O2 Delivery O2 Flow Rate FiO2 08/29/19 07:45 93 Nasal Cannula 2.0 08/29/19 07:00 98.1 91 18 131/100 (110) 98.1 Intake and Output 08/29/19 07:00 Intake Total 600 ml Output Total 1150 ml Balance -550 ml Intake Oral 600 ml Output Urine Total 1150 ml Physical Exam Heart: Normal S1, Normal S2 General: Alert, Oriented X3 Lungs: Clear to auscultation Neuro: Normal speech Psych/Mental Status: Mental status NL Assessment Assessment Problems Medical Problems: (1) NATALIE (acute kidney injury) Status: Acute (2) Anemia Status: Acute (3) Hypokalemia Status: Acute (4) Hypoxia Status: Acute (5) Pneumonia Status: Acute IMPRESSION AND PLAN: 1. Myelodysplastic syndrome as suggested by bone marrow biopsy on 12/27/2018. She has been treated with Aranesp. Agreed to monitor CBC and transfuse PRBC as needed to keep the hemoglobin at or above 7. No evidence of bleeding. She will follow up with Dr. Solis upon discharge. 2. Leukocytosis, significantly worse. There is evidence of elevated bands, promyelocytes, myelocytes, metamyelocytes and toxic granulations suggestive of sepsis. I do not suspect a leukemia since she has had a bone marrow biopsy recently. However, I have discussed the case with pathologist, Dr. Elier Delgado, who will review the peripheral smear. I reviewed the bone marrow results from 12/27/2018 which showed worsening dyspoiesis when compared to the prior bone marrow biopsy, worrisome for myelodysplastic syndrome or a mixed myelodysplastic syndrome/myeloproliferative neoplasm. WBC 52.3 on 08/29/2019. 3. Anemia. Continue to monitor and transfuse as needed. Hemoglobin 7.0 after 1 unit of PRBC transfusion. 4. Pneumonia and sepsis. Continue management per Dr. Carlito Cruz and Infectious Diseases and Pulmonary Medicine. Comment Review of Relevant I have reviewed the following items deepak (where applicable) has been applied. Labs Laboratory Tests Test 08/27/19 16:52 08/27/19 17:06 08/27/19 17:30 08/27/19 21:45 White Blood Count 52.7 x10^3/uL (4.0-11.0) Red Blood Count 2.04 x10^6/uL (3.50-5.40) Hemoglobin 6.5 g/dL (12.0-15.5) Hematocrit 20.8 % (36.0-47.0) Mean Corpuscular Volume 102 fL (79-100) Mean Corpuscular Hemoglobin 32 pg (25-35) Mean Corpuscular Hemoglobin Concent 31 g/dL (31-37) Red Cell Distribution Width 22.2 % (11.5-14.5) Platelet Count 704 x10^3/uL (140-400) Neutrophils (%) (Auto) 92 % (31-73) Lymphocytes (%) (Auto) 5 % (24-48) Monocytes (%) (Auto) 2 % (0-9) Eosinophils (%) (Auto) 0 % (0-3) Basophils (%) (Auto) 1 % (0-3) Neutrophils # (Auto) 48.5 x10^3/uL (1.8-7.7) Lymphocytes # (Auto) 2.6 x10^3/uL (1.0-4.8) Monocytes # (Auto) 1.3 x10^3/uL (0.0-1.1) Eosinophils # (Auto) 0.0 x10^3/uL (0.0-0.7) Basophils # (Auto) 0.3 x10^3/uL (0.0-0.2) Segmented Neutrophils % 49 % (35-66) Band Neutrophils % 36 % (0-9) Lymphocytes % 8 % (24-48) Monocytes % 2 % (0-10) Metamyelocytes % 1 % (0-0) Myelocytes % 3 % (0-0) Promyelocytes % 1 % (0-0) Toxic Granulation Mod Dohle Bodies Few Platelet Estimate Increased (ADEQUATE) Large Platelets Few Polychromasia Slight Hypochromasia Slight Poikilocytosis Slight Anisocytosis Mod Macrocytosis Slight Target Cells Occ Tear Drop Cells Few Ovalocytes Few Schistocytes Occ Prothrombin Time 15.9 SEC (11.7-14.0) Prothromb Time International Ratio 1.3 (0.8-1.1) Activated Partial Thromboplast Time 35 SEC (24-38) Sodium Level 139 mmol/L (136-145) Potassium Level 3.1 mmol/L (3.5-5.1) Chloride Level 103 mmol/L (98-107) Carbon Dioxide Level 25 mmol/L (21-32) Anion Gap 11 (6-14) Blood Urea Nitrogen 38 mg/dL (7-20) Creatinine 1.4 mg/dL (0.6-1.0) Estimated GFR (Cockcroft-Gault) 37.4 BUN/Creatinine Ratio 27 (6-20) Glucose Level 157 mg/dL (70-99) Lactic Acid Level 1.4 mmol/L (0.4-2.0) Calcium Level 8.4 mg/dL (8.5-10.1) Magnesium Level 2.0 mg/dL (1.8-2.4) Total Bilirubin 0.9 mg/dL (0.2-1.0) Aspartate Amino Transf (AST/SGOT) 16 U/L (15-37) Alanine Aminotransferase (ALT/SGPT) < 6 U/L (14-59) Alkaline Phosphatase 160 U/L (46-116) Troponin I Quantitative < 0.017 ng/mL (0.000-0.055) SS-Aey-M-Type Natriuretic Peptide 810 pg/mL (0-124) Total Protein 6.1 g/dL (6.4-8.2) Albumin 2.4 g/dL (3.4-5.0) Albumin/Globulin Ratio 0.6 (1.0-1.7) Procalcitonin 1.86 ng/mL (0.00-0.10) Influenza Type A Antigen Negative (NEGATIVE) Influenza Type B Antigen Negative (NEGATIVE) O2 Saturation 90 % (92-99) Arterial Blood pH 7.44 (7.35-7.45) Arterial Blood pCO2 at Patient Temp 37 mmHg (35-46) Arterial Blood pO2 at Patient Temp 60 mmHg (65-108) Arterial Blood HCO3 24 mmol/L (21-28) Arterial Blood Base Excess 0 mmol/L (-3-3) Oxyhemoglobin 88.5 % Methemoglobin 0.8 % (0.0-1.9) Carbon Monoxide, Quantitative 0.3 % (0.0-1.9) FiO2 26 Urine Collection Type U cath Urine Color Yellow Urine Clarity Cloudy Urine pH 6.0 Urine Specific [place] 1.010 Urine Protein Negative mg/dL (NEG-TRACE) Urine Glucose (UA) Negative mg/dL (NEG) Urine Ketones (Stick) Negative mg/dL (NEG) Urine Blood Negative (NEG) Urine Nitrite Negative (NEG) Urine Bilirubin Negative (NEG) Urine Urobilinogen Dipstick 1.0 mg/dL (0.2 mg/dL) Urine Leukocyte Esterase Negative (NEG) Urine RBC 0 /HPF (0-2) Urine WBC 0 /HPF (0-4) Urine Squamous Epithelial Cells Few /LPF Urine Amorphous Sediment Present /HPF Urine Bacteria 0 /HPF (0-FEW) Test 08/28/19 06:25 08/28/19 12:00 08/28/19 16:20 08/28/19 20:47 White Blood Count 48.9 x10^3/uL (4.0-11.0) Red Blood Count 2.18 x10^6/uL (3.50-5.40) Hemoglobin 7.0 g/dL (12.0-15.5) Hematocrit 21.8 % (36.0-47.0) Mean Corpuscular Volume 100 fL (79-100) Mean Corpuscular Hemoglobin 32 pg (25-35) Mean Corpuscular Hemoglobin Concent 32 g/dL (31-37) Red Cell Distribution Width 23.2 % (11.5-14.5) Platelet Count 620 x10^3/uL (140-400) Neutrophils (%) (Auto) 94 % (31-73) Lymphocytes (%) (Auto) 4 % (24-48) Monocytes (%) (Auto) 1 % (0-9) Eosinophils (%) (Auto) 0 % (0-3) Basophils (%) (Auto) 0 % (0-3) Neutrophils # (Auto) 46.0 x10^3/uL (1.8-7.7) Lymphocytes # (Auto) 2.1 x10^3/uL (1.0-4.8) Monocytes # (Auto) 0.6 x10^3/uL (0.0-1.1) Eosinophils # (Auto) 0.0 x10^3/uL (0.0-0.7) Basophils # (Auto) 0.1 x10^3/uL (0.0-0.2) Sodium Level 142 mmol/L (136-145) Potassium Level 3.4 mmol/L (3.5-5.1) Chloride Level 107 mmol/L (98-107) Carbon Dioxide Level 25 mmol/L (21-32) Anion Gap 10 (6-14) Blood Urea Nitrogen 36 mg/dL (7-20) Creatinine 1.3 mg/dL (0.6-1.0) Estimated GFR (Cockcroft-Gault) 40.7 Glucose Level 248 mg/dL (70-99) Calcium Level 8.1 mg/dL (8.5-10.1) Iron Level 13 ug/dL (50-170) Total Iron Binding Capacity 100 ug/dL (250-450) Iron Saturation 13 % (15-34) Vitamin B12 Level 1101 pg/mL (247-911) Low Molecular Weight Heparin < 0.10 IU/mL Glucose (Fingerstick) 211 mg/dL (70-99) 217 mg/dL (70-99) 194 mg/dL (70-99) Test 08/29/19 04:15 08/29/19 07:21 White Blood Count 52.3 x10^3/uL (4.0-11.0) Red Blood Count 2.18 x10^6/uL (3.50-5.40) Hemoglobin 6.9 g/dL (12.0-15.5) Hematocrit 22.0 % (36.0-47.0) Mean Corpuscular Volume 101 fL (79-100) Mean Corpuscular Hemoglobin 32 pg (25-35) Mean Corpuscular Hemoglobin Concent 31 g/dL (31-37) Red Cell Distribution Width 23.6 % (11.5-14.5) Platelet Count 671 x10^3/uL (140-400) Neutrophils (%) (Auto) 91 % (31-73) Lymphocytes (%) (Auto) 6 % (24-48) Monocytes (%) (Auto) 3 % (0-9) Eosinophils (%) (Auto) 0 % (0-3) Basophils (%) (Auto) 0 % (0-3) Neutrophils # (Auto) 47.8 x10^3/uL (1.8-7.7) Lymphocytes # (Auto) 3.0 x10^3/uL (1.0-4.8) Monocytes # (Auto) 1.3 x10^3/uL (0.0-1.1) Eosinophils # (Auto) 0.0 x10^3/uL (0.0-0.7) Basophils # (Auto) 0.2 x10^3/uL (0.0-0.2) Sodium Level 147 mmol/L (136-145) Potassium Level 3.9 mmol/L (3.5-5.1) Chloride Level 110 mmol/L (98-107) Carbon Dioxide Level 28 mmol/L (21-32) Anion Gap 9 (6-14) Blood Urea Nitrogen 39 mg/dL (7-20) Creatinine 1.3 mg/dL (0.6-1.0) Estimated GFR (Cockcroft-Gault) 40.7 Glucose Level 171 mg/dL (70-99) Calcium Level 8.0 mg/dL (8.5-10.1) Glucose (Fingerstick) 144 mg/dL (70-99) Laboratory Tests Test 08/28/19 12:00 08/28/19 16:20 08/28/19 20:47 08/29/19 04:15 Glucose (Fingerstick) 211 mg/dL (70-99) 217 mg/dL (70-99) 194 mg/dL (70-99) White Blood Count 52.3 x10^3/uL (4.0-11.0) Red Blood Count 2.18 x10^6/uL (3.50-5.40) Hemoglobin 6.9 g/dL (12.0-15.5) Hematocrit 22.0 % (36.0-47.0) Mean Corpuscular Volume 101 fL (79-100) Mean Corpuscular Hemoglobin 32 pg (25-35) Mean Corpuscular Hemoglobin Concent 31 g/dL (31-37) Red Cell Distribution Width 23.6 % (11.5-14.5) Platelet Count 671 x10^3/uL (140-400) Neutrophils (%) (Auto) 91 % (31-73) Lymphocytes (%) (Auto) 6 % (24-48) Monocytes (%) (Auto) 3 % (0-9) Eosinophils (%) (Auto) 0 % (0-3) Basophils (%) (Auto) 0 % (0-3) Neutrophils # (Auto) 47.8 x10^3/uL (1.8-7.7) Lymphocytes # (Auto) 3.0 x10^3/uL (1.0-4.8) Monocytes # (Auto) 1.3 x10^3/uL (0.0-1.1) Eosinophils # (Auto) 0.0 x10^3/uL (0.0-0.7) Basophils # (Auto) 0.2 x10^3/uL (0.0-0.2) Sodium Level 147 mmol/L (136-145) Potassium Level 3.9 mmol/L (3.5-5.1) Chloride Level 110 mmol/L (98-107) Carbon Dioxide Level 28 mmol/L (21-32) Anion Gap 9 (6-14) Blood Urea Nitrogen 39 mg/dL (7-20) Creatinine 1.3 mg/dL (0.6-1.0) Estimated GFR (Cockcroft-Gault) 40.7 Glucose Level 171 mg/dL (70-99) Calcium Level 8.0 mg/dL (8.5-10.1) Test 08/29/19 07:21 Glucose (Fingerstick) 144 mg/dL (70-99) Microbiology 08/27/19 Blood Culture - Final, Complete Medications Current Medications Methylprednisolone Sodium Succinate (SOLU-Medrol 125MG VIAL) 125 mg 1X ONCE IV Last administered on 08/27/19at 17:04; Start 08/27/19 at 16:45; Stop 08/27/19 at 16:46; Status DC Albuterol/ Ipratropium (Duoneb) 3 ml 1X ONCE NEB Last administered on 08/27/19at 17:58; Start 08/27/19 at 16:45; Stop 08/27/19 at 16:46; Status DC Piperacillin Sod/ Tazobactam Sod 3.375 gm/Sodium Chloride 50 ml @ 100 mls/hr 1X STAT IV Last administered on 08/27/19at 18:32; Start 08/27/19 at 17:17; Stop 08/27/19 at 17:46; Status DC Vancomycin HCl 1.5 gm/Sodium Chloride 500 ml @ 250 mls/hr 1X STAT IV Last administered on 08/27/19at 18:32; Start 08/27/19 at 17:17; Stop 08/27/19 at 19:16; Status DC Sodium Chloride 1,000 ml @ 1,000 mls/hr 1X STAT IV ; Start 08/27/19 at 17:17; Stop 08/27/19 at 17:36; Status DC Sodium Chloride 1,000 ml @ 1,000 mls/hr 1X STAT IV Last administered on 08/27/19at 17:40; Start 08/27/19 at 17:17; Stop 08/27/19 at 18:16; Status DC Potassium Chloride (Klor-Con) 40 meq 1X STAT PO ; Start 08/27/19 at 17:51; Stop 08/27/19 at 17:54; Status DC Ondansetron HCl (Zofran) 4 mg PRN Q8HRS PRN IV NAUSEA/VOMITING; Start 08/27/19 at 18:30; Stop 08/28/19 at 18:29; Status DC Acetaminophen (Tylenol) 650 mg PRN Q4HRS PRN PO FEVER; Start 08/27/19 at 18:30; Stop 08/28/19 at 10:27; Status DC Albuterol/ Ipratropium (Duoneb) 3 ml RTQID NEB Last administered on 08/28/19at 15:46; Start 08/27/19 at 20:00; Stop 08/28/19 at 19:59; Status DC Potassium Chloride/Dextrose/ Sod Cl 1,000 ml @ 75 mls/hr [id number] IV Last administered on 08/28/19at 10:10; Start 08/27/19 at 21:00; Stop 08/28/19 at 10:25; Status DC Bupropion HCl (Wellbutrin Xl) 150 mg DAILY PO Last administered on 08/29/19at 09:24; Start 08/28/19 at 09:00 Acetaminophen/ Hydrocodone Bitart (Lortab 7.5/325) 0.5 tab PRN Q4HRS PRN PO MODERATE PAIN 4-6 Last administered on 08/28/19at 06:34; Start 08/28/19 at 00:00 Albuterol Sulfate (Ventolin Neb Soln) 2.5 mg PRN QID PRN NEB SHORTNESS OF BREATH Last administered on 08/28/19at 00:28; Start 08/28/19 at 00:30; Stop 08/28/19 at 10:25; Status DC Levothyroxine Sodium (Synthroid) 175 mcg DAILYAC PO Last administered on 08/29/19 09:27; Start 08/28/19 at 07:30 Fish Oil (Fish Oil) 1 mg BID PO Last administered on 08/28/19at 20:42; Start 08/28/19 at 09:00; Stop 08/29/19 at 09:29; Status DC Oxybutynin Chloride (Ditropan) 5 mg TID PO ; Start 08/28/19 at 09:00; Stop 08/28/19 at 01:05; Status DC Polyethylene Glycol (miraLAX PACKET) 17 gm DAILY PO Last administered on 08/29/19 09:26; Start 08/28/19 at 09:00 Ropinirole HCl (Requip) 3 mg 5XDAY PO ; Start 08/28/19 at 06:00; Stop 08/28/19 at 01:10; Status DC Non-Formulary Medication (Carbidopa/ Levodopa (Sinemet Cr 50-200 Tablet)) 1 each TID PO ; Start 08/28/19 at 09:00; Stop 08/28/19 at 00:19; Status DC Multivitamins (Thera M Plus) 1 tab DAILY PO Last administered on 08/29/19 09:27; Start 08/28/19 at 09:00 Non-Formulary Medication (Safinamide Mesylate (Xadago)) 50 mg DAILY PO ; Start 08/28/19 at 09:00; Stop 08/28/19 at 08:59; Status DC Carbidopa/Levodopa (Sinemet Cr) 2 tab.sa 5XDAY PO Last administered on 08/29/19at 09:35; Start 08/28/19 at 06:00 Oxybutynin Chloride (Ditropan) 5 mg TID PO Last administered on 08/29/19 09:34; Start 08/28/19 at 01:15 Ropinirole HCl (Requip) 3 mg 5XDAY PO Last administered on 08/29/19 09:27; Start 08/28/19 at 01:15 Acetaminophen/ Hydrocodone Bitart (Lortab 7.5/325) 1 tab PRN Q4HRS PRN PO SEVERE PAIN 7-10 Last administered on 08/29/19 02:36; Start 08/28/19 at 02:00 Magnesium Hydroxide (Milk Of Magnesia) 2,400 mg PRN DAILY PRN PO CONSTIPATION 1ST CHOICE; Start 08/28/19 at 03:30 Piperacillin Sod/ Tazobactam Sod (Zosyn Per Pharmacy) 1 each PRN DAILY PRN MC SEE COMMENTS; Start 08/28/19 at 06:45 Vancomycin HCl (Vanco Per Pharmacy) 1 each PRN DAILY PRN MC SEE COMMENTS Last administered on 08/28/19at 06:52; Start 08/28/19 at 06:45; Stop 08/28/19 at 07:43; Status DC Piperacillin Sod/ Tazobactam Sod 3.375 gm/Sodium Chloride 50 ml @ 100 mls/hr Q 6HRS IV Last administered on 08/29/19at 05:09; Start 08/28/19 at 07:00 Vancomycin HCl 1.5 gm/Sodium Chloride 500 ml @ 250 mls/hr Q24H IV Last administered on 08/28/19at 16:52; Start 08/28/19 at 18:00; Stop 08/29/19 at 09:06; Status DC Vancomycin HCl (Vancomycin Trough Level) 1 each 1X ONCE MC ; Start 08/29/19 at 17:30; Stop 08/29/19 at 17:31; Status Cancel Azithromycin 500 mg/Sodium Chloride 250 ml @ 250 mls/hr Q24H IV Last administered on 08/29/19at 09:30; Start 08/28/19 at 08:00 Albuterol Sulfate (Ventolin Neb Soln) 2.5 mg RTQID NEB Last administered on 08/29/19at 07:44; Start 08/28/19 at 12:00 Enoxaparin Sodium (Lovenox 40mg Syringe) 40 mg Q24H SQ ; Start 08/28/19 at 11:00; Stop 08/28/19 at 10:38; Status DC Potassium Chloride (Klor-Con) 20 meq 1X ONCE PO Last administered on 08/28/19at 11:26; Start 08/28/19 at 11:00; Stop 08/28/19 at 11:01; Status DC Lactulose (Lactulose) 20 gm Q2H PO Last administered on 08/28/19at 11:53; Start 08/28/19 at 12:00; Stop 08/28/19 at 14:01; Status DC Acetaminophen (Tylenol) 650 mg PRN Q6HRS PRN PO MILD PAIN / TEMP; Start 08/28/19 at 10:30 Vancomycin HCl (Vanco Per Pharmacy) 1 each PRN DAILY PRN MC SEE COMMENTS; Start 08/28/19 at 10:45; Status Cancel Insulin Human Lispro (HumaLOG) 0-6 UNITS TIDWMEALS SQ Last administered on 08/28/19at 16:54; Start 08/28/19 at 12:00 Potassium Chloride/Dextrose/ Sod Cl 1,000 ml @ 60 mls/hr [id number] IV Last administered on 08/29/19at 02:35; Start 08/28/19 at 10:45 Enoxaparin Sodium (Lovenox 40mg Syringe) 40 mg Q24H SQ ; Start 08/28/19 at 21:00; Stop 08/28/19 at 10:50; Status DC Pantoprazole Sodium (Protonix) 40 mg DAILYAC PO Last administered on 08/29/19at 09:24; Start 08/28/19 at 12:15 Polyethylene Glycol (miraLAX PACKET) 17 gm PRN DAILY PRN PO CONSTIPATION; Start 08/28/19 at 12:15 Fish Oil (Fish Oil) 1,000 mg DAILY PO Last administered on 08/29/19at 09:31; Start 08/29/19 at 09:30 Magnesium Citrate (Citroma) 296 ml 1X ONCE PO ; Start 08/29/19 at 10:15; Stop 08/29/19 at 10:16; Status DC Bisacodyl (Dulcolax Tab) 10 mg 1X ONCE PO ; Start 08/29/19 at 11:00; Stop 08/29/19 at 11:02; Status DC Active Scripts Active Requip (Ropinirole Hcl) 1 Mg Tablet 3 Mg PO QID@06,11,16,21 Miralax (Polyethylene Glycol 3350) 17 Gm Powd.pack 17 Gm PO DAILY Diazepam 5 Mg Tablet 5 Mg PO PRN BID PRN Reported Losartan-Hctz 50-12.5 Mg Tab (Losartan/Hydrochlorothiazide) 1 Each Tablet 1 Tab PO DAILY Xadago (Safinamide Mesylate) 50 Mg Tablet 50 Mg PO DAILY Levothyroxine Sodium 175 Mcg Tablet 175 Mcg PO DAILYAC Hydrocodone-Apap 7.5-325 (Hydrocodone Bit/Acetaminophen) 1 Each Tablet 0.5-1 Tab PO PRN Q4-6HRS PRN Proair Hfa Inhaler (Albuterol Sulfate) 8.5 Gm Hfa.aer.ad 8.5 Gm IH PRN Duoneb 0.5 Mg-3 Mg/3 Ml Soln (Ipratropium/Albuterol Sulfate) 3 Ml Ampul.neb 3 Ml IH PRN Bupropion Xl (Bupropion Hcl) 150 Mg Tab.er.24h 150 Mg PO DAILY Oxybutynin Chloride 5 Mg Tablet 5 Mg PO TID Sinemet Cr 50-200 Tablet (Carbidopa/Levodopa) 1 Each Tablet.er 1 Each PO TID Daily Vitamin (Multivitamin) 1 Each Tablet 1 Each PO DAILY Fish Oil 1,000 Mg Capsule ([place]-3 Fatty Acids/Fish Oil) 1 Each Capsule 1 Each PO BID Vitals/I & O Vital Sign - Last 24 Hours 08/28/19 08/28/19 08/28/19 08/28/19 12:00 12:00 12:07 15:00 Temp 97.9 97.9 Pulse 95 92 Resp 20 23 B/P (MAP) 107/58 (74) 112/59 (76) Pulse Ox 91 93 100 O2 Delivery Room Air Room Air Room Air Nasal Cannula O2 Flow Rate 3.0 08/28/19 08/28/19 08/28/19 08/28/19 15:47 19:00 20:10 20:41 Temp 98.2 98.2 Pulse 93 Resp 16 B/P (MAP) 126/54 (78) Pulse Ox 92 94 O2 Delivery Room Air Room Air Nasal Cannula Nasal Cannula O2 Flow Rate 2.0 08/28/19 08/28/19 08/28/19 08/29/19 21:41 21:56 23:00 02:36 Temp 98.1 98.1 Pulse 92 Resp 16 B/P (MAP) 133/62 (85) Pulse Ox 94 92 95 O2 Delivery Nasal Cannula Room Air Nasal Cannula Nasal Cannula O2 Flow Rate 2.0 2.0 2.0 08/29/19 08/29/19 08/29/19 08/29/19 03:00 03:36 07:00 07:45 Temp 98.1 98.1 98.1 98.1 Pulse 89 91 Resp 18 18 B/P (MAP) 153/64 (93) 131/100 (110) Pulse Ox 95 95 96 93 O2 Delivery Nasal Cannula Nasal Cannula Nasal Cannula Nasal Cannula O2 Flow Rate 2.0 2.0 2.0 2.0 Intake and Output 08/28/19 08/28/19 08/29/19 15:00 23:00 07:00 Intake Total 240 ml 360 ml Output Total 500 ml 650 ml Balance -500 ml 240 ml -290 ml MARIO DE MD Aug 29, 2019 11:08
--- NOTE | 2019-08-29 14:20 | PDOC ---
PULMONARY PROGRESS NOTES Subjective less soa/ less cough Vitals Vital Signs Date Time Temp Pulse Resp B/P (MAP) Pulse Ox O2 Delivery O2 Flow Rate FiO2 08/29/19 13:33 Nasal Cannula 2.0 08/29/19 12:23 94 08/29/19 11:00 98.4 95 18 113/95 (101) 98.4 General: Alert, No acute distress Lungs: Other (few rhonchi) Cardiovascular: S1 Abdomen: Soft Extremities: Other (1=edema) Skin: Warm Labs Laboratory Tests Test 08/27/19 16:52 08/27/19 17:06 08/27/19 17:30 08/27/19 21:45 White Blood Count 52.7 x10^3/uL (4.0-11.0) Red Blood Count 2.04 x10^6/uL (3.50-5.40) Hemoglobin 6.5 g/dL (12.0-15.5) Hematocrit 20.8 % (36.0-47.0) Mean Corpuscular Volume 102 fL (79-100) Mean Corpuscular Hemoglobin 32 pg (25-35) Mean Corpuscular Hemoglobin Concent 31 g/dL (31-37) Red Cell Distribution Width 22.2 % (11.5-14.5) Platelet Count 704 x10^3/uL (140-400) Neutrophils (%) (Auto) 92 % (31-73) Lymphocytes (%) (Auto) 5 % (24-48) Monocytes (%) (Auto) 2 % (0-9) Eosinophils (%) (Auto) 0 % (0-3) Basophils (%) (Auto) 1 % (0-3) Neutrophils # (Auto) 48.5 x10^3/uL (1.8-7.7) Lymphocytes # (Auto) 2.6 x10^3/uL (1.0-4.8) Monocytes # (Auto) 1.3 x10^3/uL (0.0-1.1) Eosinophils # (Auto) 0.0 x10^3/uL (0.0-0.7) Basophils # (Auto) 0.3 x10^3/uL (0.0-0.2) Segmented Neutrophils % 49 % (35-66) Band Neutrophils % 36 % (0-9) Lymphocytes % 8 % (24-48) Monocytes % 2 % (0-10) Metamyelocytes % 1 % (0-0) Myelocytes % 3 % (0-0) Promyelocytes % 1 % (0-0) Toxic Granulation Mod Dohle Bodies Few Platelet Estimate Increased (ADEQUATE) Large Platelets Few Polychromasia Slight Hypochromasia Slight Poikilocytosis Slight Anisocytosis Mod Macrocytosis Slight Target Cells Occ Tear Drop Cells Few Ovalocytes Few Schistocytes Occ Prothrombin Time 15.9 SEC (11.7-14.0) Prothromb Time International Ratio 1.3 (0.8-1.1) Activated Partial Thromboplast Time 35 SEC (24-38) Sodium Level 139 mmol/L (136-145) Potassium Level 3.1 mmol/L (3.5-5.1) Chloride Level 103 mmol/L (98-107) Carbon Dioxide Level 25 mmol/L (21-32) Anion Gap 11 (6-14) Blood Urea Nitrogen 38 mg/dL (7-20) Creatinine 1.4 mg/dL (0.6-1.0) Estimated GFR (Cockcroft-Gault) 37.4 BUN/Creatinine Ratio 27 (6-20) Glucose Level 157 mg/dL (70-99) Lactic Acid Level 1.4 mmol/L (0.4-2.0) Calcium Level 8.4 mg/dL (8.5-10.1) Magnesium Level 2.0 mg/dL (1.8-2.4) Total Bilirubin 0.9 mg/dL (0.2-1.0) Aspartate Amino Transf (AST/SGOT) 16 U/L (15-37) Alanine Aminotransferase (ALT/SGPT) < 6 U/L (14-59) Alkaline Phosphatase 160 U/L (46-116) Troponin I Quantitative < 0.017 ng/mL (0.000-0.055) LU-Fkz-S-Type Natriuretic Peptide 810 pg/mL (0-124) Total Protein 6.1 g/dL (6.4-8.2) Albumin 2.4 g/dL (3.4-5.0) Albumin/Globulin Ratio 0.6 (1.0-1.7) Procalcitonin 1.86 ng/mL (0.00-0.10) Influenza Type A Antigen Negative (NEGATIVE) Influenza Type B Antigen Negative (NEGATIVE) O2 Saturation 90 % (92-99) Arterial Blood pH 7.44 (7.35-7.45) Arterial Blood pCO2 at Patient Temp 37 mmHg (35-46) Arterial Blood pO2 at Patient Temp 60 mmHg (65-108) Arterial Blood HCO3 24 mmol/L (21-28) Arterial Blood Base Excess 0 mmol/L (-3-3) Oxyhemoglobin 88.5 % Methemoglobin 0.8 % (0.0-1.9) Carbon Monoxide, Quantitative 0.3 % (0.0-1.9) FiO2 26 Urine Collection Type U cath Urine Color Yellow Urine Clarity Cloudy Urine pH 6.0 Urine Specific [place] 1.010 Urine Protein Negative mg/dL (NEG-TRACE) Urine Glucose (UA) Negative mg/dL (NEG) Urine Ketones (Stick) Negative mg/dL (NEG) Urine Blood Negative (NEG) Urine Nitrite Negative (NEG) Urine Bilirubin Negative (NEG) Urine Urobilinogen Dipstick 1.0 mg/dL (0.2 mg/dL) Urine Leukocyte Esterase Negative (NEG) Urine RBC 0 /HPF (0-2) Urine WBC 0 /HPF (0-4) Urine Squamous Epithelial Cells Few /LPF Urine Amorphous Sediment Present /HPF Urine Bacteria 0 /HPF (0-FEW) Test 08/28/19 06:25 08/28/19 12:00 08/28/19 16:20 08/28/19 20:47 White Blood Count 48.9 x10^3/uL (4.0-11.0) Red Blood Count 2.18 x10^6/uL (3.50-5.40) Hemoglobin 7.0 g/dL (12.0-15.5) Hematocrit 21.8 % (36.0-47.0) Mean Corpuscular Volume 100 fL (79-100) Mean Corpuscular Hemoglobin 32 pg (25-35) Mean Corpuscular Hemoglobin Concent 32 g/dL (31-37) Red Cell Distribution Width 23.2 % (11.5-14.5) Platelet Count 620 x10^3/uL (140-400) Neutrophils (%) (Auto) 94 % (31-73) Lymphocytes (%) (Auto) 4 % (24-48) Monocytes (%) (Auto) 1 % (0-9) Eosinophils (%) (Auto) 0 % (0-3) Basophils (%) (Auto) 0 % (0-3) Neutrophils # (Auto) 46.0 x10^3/uL (1.8-7.7) Lymphocytes # (Auto) 2.1 x10^3/uL (1.0-4.8) Monocytes # (Auto) 0.6 x10^3/uL (0.0-1.1) Eosinophils # (Auto) 0.0 x10^3/uL (0.0-0.7) Basophils # (Auto) 0.1 x10^3/uL (0.0-0.2) Sodium Level 142 mmol/L (136-145) Potassium Level 3.4 mmol/L (3.5-5.1) Chloride Level 107 mmol/L (98-107) Carbon Dioxide Level 25 mmol/L (21-32) Anion Gap 10 (6-14) Blood Urea Nitrogen 36 mg/dL (7-20) Creatinine 1.3 mg/dL (0.6-1.0) Estimated GFR (Cockcroft-Gault) 40.7 Glucose Level 248 mg/dL (70-99) Calcium Level 8.1 mg/dL (8.5-10.1) Iron Level 13 ug/dL (50-170) Total Iron Binding Capacity 100 ug/dL (250-450) Iron Saturation 13 % (15-34) Vitamin B12 Level 1101 pg/mL (247-911) Low Molecular Weight Heparin < 0.10 IU/mL Glucose (Fingerstick) 211 mg/dL (70-99) 217 mg/dL (70-99) 194 mg/dL (70-99) Test 08/29/19 04:15 08/29/19 07:21 08/29/19 11:32 White Blood Count 52.3 x10^3/uL (4.0-11.0) Red Blood Count 2.18 x10^6/uL (3.50-5.40) Hemoglobin 6.9 g/dL (12.0-15.5) Hematocrit 22.0 % (36.0-47.0) Mean Corpuscular Volume 101 fL (79-100) Mean Corpuscular Hemoglobin 32 pg (25-35) Mean Corpuscular Hemoglobin Concent 31 g/dL (31-37) Red Cell Distribution Width 23.6 % (11.5-14.5) Platelet Count 671 x10^3/uL (140-400) Neutrophils (%) (Auto) 91 % (31-73) Lymphocytes (%) (Auto) 6 % (24-48) Monocytes (%) (Auto) 3 % (0-9) Eosinophils (%) (Auto) 0 % (0-3) Basophils (%) (Auto) 0 % (0-3) Neutrophils # (Auto) 47.8 x10^3/uL (1.8-7.7) Lymphocytes # (Auto) 3.0 x10^3/uL (1.0-4.8) Monocytes # (Auto) 1.3 x10^3/uL (0.0-1.1) Eosinophils # (Auto) 0.0 x10^3/uL (0.0-0.7) Basophils # (Auto) 0.2 x10^3/uL (0.0-0.2) Sodium Level 147 mmol/L (136-145) Potassium Level 3.9 mmol/L (3.5-5.1) Chloride Level 110 mmol/L (98-107) Carbon Dioxide Level 28 mmol/L (21-32) Anion Gap 9 (6-14) Blood Urea Nitrogen 39 mg/dL (7-20) Creatinine 1.3 mg/dL (0.6-1.0) Estimated GFR (Cockcroft-Gault) 40.7 Glucose Level 171 mg/dL (70-99) Calcium Level 8.0 mg/dL (8.5-10.1) Glucose (Fingerstick) 144 mg/dL (70-99) 126 mg/dL (70-99) Laboratory Tests Test 08/28/19 16:20 08/28/19 20:47 08/29/19 04:15 08/29/19 07:21 Glucose (Fingerstick) 217 mg/dL (70-99) 194 mg/dL (70-99) 144 mg/dL (70-99) White Blood Count 52.3 x10^3/uL (4.0-11.0) Red Blood Count 2.18 x10^6/uL (3.50-5.40) Hemoglobin 6.9 g/dL (12.0-15.5) Hematocrit 22.0 % (36.0-47.0) Mean Corpuscular Volume 101 fL (79-100) Mean Corpuscular Hemoglobin 32 pg (25-35) Mean Corpuscular Hemoglobin Concent 31 g/dL (31-37) Red Cell Distribution Width 23.6 % (11.5-14.5) Platelet Count 671 x10^3/uL (140-400) Neutrophils (%) (Auto) 91 % (31-73) Lymphocytes (%) (Auto) 6 % (24-48) Monocytes (%) (Auto) 3 % (0-9) Eosinophils (%) (Auto) 0 % (0-3) Basophils (%) (Auto) 0 % (0-3) Neutrophils # (Auto) 47.8 x10^3/uL (1.8-7.7) Lymphocytes # (Auto) 3.0 x10^3/uL (1.0-4.8) Monocytes # (Auto) 1.3 x10^3/uL (0.0-1.1) Eosinophils # (Auto) 0.0 x10^3/uL (0.0-0.7) Basophils # (Auto) 0.2 x10^3/uL (0.0-0.2) Sodium Level 147 mmol/L (136-145) Potassium Level 3.9 mmol/L (3.5-5.1) Chloride Level 110 mmol/L (98-107) Carbon Dioxide Level 28 mmol/L (21-32) Anion Gap 9 (6-14) Blood Urea Nitrogen 39 mg/dL (7-20) Creatinine 1.3 mg/dL (0.6-1.0) Estimated GFR (Cockcroft-Gault) 40.7 Glucose Level 171 mg/dL (70-99) Calcium Level 8.0 mg/dL (8.5-10.1) Test 08/29/19 11:32 Glucose (Fingerstick) 126 mg/dL (70-99) Medications Active Scripts Medications Dose Route/Sig Max Daily Dose Days Date Category Losartan-Hctz 50-12.5 Mg Tab (Losartan/Hydrochlorothiazide) 1 Each Tablet 1 Tab PO DAILY 08/28/19 Reported Xadago (Safinamide Mesylate) 50 Mg Tablet 50 Mg PO DAILY 12/27/18 Reported Levothyroxine Sodium 175 Mcg Tablet 175 Mcg PO DAILYAC 10/31/17 Reported Hydrocodone-Apap 7.5-325 (Hydrocodone Bit/Acetaminophen) 1 Each Tablet 0.5-1 Tab PO PRN Q4-6HRS PRN 10/31/17 Reported Requip (Ropinirole Hcl) 1 Mg Tablet 3 Mg PO QID@06,11,16,21 01/16/16 Rx Miralax (Polyethylene Glycol 3350) 17 Gm Powd.pack 17 Gm PO DAILY 01/16/16 Rx Diazepam 5 Mg Tablet 5 Mg PO PRN BID PRN 01/16/16 Rx Proair Hfa Inhaler (Albuterol Sulfate) 8.5 Gm Hfa.aer.ad 8.5 Gm IH PRN 12/07/13 Reported Duoneb 0.5 Mg-3 Mg/3 Ml Soln (Ipratropium/Albuterol Sulfate) 3 Ml Ampul.neb 3 Ml IH PRN 12/07/13 Reported Bupropion Xl (Bupropion Hcl) 150 Mg Tab.er.24h 150 Mg PO DAILY 12/07/13 Reported Oxybutynin Chloride 5 Mg Tablet 5 Mg PO TID 12/07/13 Reported Sinemet Cr 50-200 Tablet (Carbidopa/Levodopa) 1 Each Tablet.er 1 Each PO TID 12/07/13 Reported Daily Vitamin (Multivitamin) 1 Each Tablet 1 Each PO DAILY 12/07/13 Reported Fish Oil 1,000 Mg Capsule ([place]-3 Fatty Acids/Fish Oil) 1 Each Capsule 1 Each PO BID 12/07/13 Reported Impression . 1. Acute hypoxic respiratory failure secondary to pneumonia, likely gram negative. Cannot exclude gram positive. Influenza screen negative. 2. Abnormal chest x-ray consistent with right upper lobe consolidation and right lower lobe infiltrate, favoring pneumonia. 3. Underlying obesity also contributing to her dyspnea. 4. Marked leukocytosis. Could be a leukemoid reaction. Hematology is following. 5. Marked anemia. MDS by biopsy. no gastrointestinal bleed.. Hematology is following. She is status post 1 unit of packed RBCs 6. Increased procalcitonin level suggesting infectious etiology. Plan . 1. We will continue with present oxygen. 2. We will monitor respiratory status closely. p.r.n. BiPAP. 3. Monitor fevers. 4. Monitor white cell count and hemoglobin. 5. Broad-spectrum antibiotics per Infectious Disease. 7. Continue bronchodilators. 8. Discussed with RADHA OLMOS MD Aug 29, 2019 14:20
[2019-08-29] MEDS: IBUPROFEN 200 MG TABLET. PO PRN (19:54)
[2019-08-29] MEDS: LACTOBACILLUS RHAMNOSUS GG 1 CAPSULE. PO SCH (19:54)
[2019-08-29] MEDS: traZODone 50 MG TABLET. PO PRN (19:56)
[2019-08-30 00:07] LABS: HEMOGLOBIN A1C 5.9 % (4.8-5.6)
[2019-08-30 03:00] VITALS: BP 101/69
[2019-08-30] MEDS: HYDROcodone/APAP 7.5/325MG 1 TAB TABLET PO PRN ×5 (03:50→20:29)
[2019-08-30] MEDS: CARBIDOPA/LEVODOPA CR 25/100MG TABLET.SA. PO SCH ×5 (05:06→20:00)
[2019-08-30] MEDS: PIPERACILLIN/TAZOBACTAM 3.375 GM in IV NORMAL SALINE 50ML 50 ML IV SCH ×3 (05:06→18:12)
[2019-08-30] MEDS: rOPINIRole 1 MG TABLET. PO SCH ×5 (05:06→19:59)
[2019-08-30 07:00] VITALS: BP 127/57
[2019-08-30] MEDS: ALBUTEROL SULFATE 2.5 MG/3 ML NEBU. NEB SCH ×4 (07:06→20:17)
[2019-08-30] MEDS: PANTOPRAZOLE 40 MG TABLET.DR. PO SCH (07:41)
[2019-08-30] MEDS: LEVOTHYROXINE 175 MCG TABLET PO SCH (07:41)
[2019-08-30] MEDS: AZITHROMYCIN 500 MG in IV NORMAL SALINE 250ML 250 ML IV SCH (07:43)
[2019-08-30] MEDS: INSULIN LISPRO 300 UNITS/3 ML VIAL. SQ SCH ×3 (07:49→17:00)
[2019-08-30] MEDS: POLYETHYLENE GLYCOL 3350 17 GM PACKET. PO SCH (07:59)
[2019-08-30] MEDS: OMEGA-3 FATTY ACIDS/FISH OIL 1,000 MG CAPSULE. PO SCH (07:59)
[2019-08-30] MEDS: OXYBUTYNIN CHLORIDE 5 MG TABLET PO SCH ×3 (08:00→20:00)
[2019-08-30] MEDS: LACTOBACILLUS RHAMNOSUS GG 1 CAPSULE. PO SCH ×2 (08:00→20:00)
[2019-08-30] MEDS: MULTIVITAMIN with MINERAL TABLET. PO SCH (08:00)
[2019-08-30] MEDS: buPROPion XL 150 MG TAB.ER.24H. PO SCH (08:01)
--- NOTE | 2019-08-30 09:08 | PDOC ---
PROGRESS NOTES Subjective Subjective HPI - f/u of Leukocytosis ROS - no CP Objective Objective Vital Signs Date Time Temp Pulse Resp B/P (MAP) Pulse Ox O2 Delivery O2 Flow Rate FiO2 08/30/19 08:00 Nasal Cannula 2.0 08/30/19 08:00 18 08/30/19 07:07 93 08/30/19 07:00 97.9 88 127/57 (80) 97.9 Intake and Output 08/30/19 07:00 Intake Total 1380 ml Output Total 850 ml Balance 530 ml Intake Oral 1380 ml Output Urine Total 850 ml # Bowel Movements 1 Physical Exam Heart: Normal S1, Normal S2 General: Alert, Oriented X3 Lungs: Normal air movement Neuro: Normal speech Psych/Mental Status: Mental status NL Assessment Assessment Problems Medical Problems: (1) NATALIE (acute kidney injury) Status: Acute (2) Anemia Status: Acute (3) Hypokalemia Status: Acute (4) Hypoxia Status: Acute (5) Pneumonia Status: Acute IMPRESSION AND PLAN: 1. Myelodysplastic syndrome as suggested by bone marrow biopsy on 12/27/2018. She has been treated with Aranesp. Agreed to monitor CBC and transfuse PRBC as needed to keep the hemoglobin at or above 7. No evidence of bleeding. She will follow up with Dr. Solis upon discharge. 2. Leukocytosis, significantly worse. There is evidence of elevated bands, promyelocytes, myelocytes, metamyelocytes and toxic granulations suggestive of sepsis. I do not suspect a leukemia since she has had a bone marrow biopsy recently. However, I have discussed the case with pathologist, Dr. Elier Delgado, peripheral smear is suggestive of leukemoid reaction. Ordered PCR for BCR-ABL. I reviewed the bone marrow results from 12/27/2018 which showed worsening dyspoiesis when compared to the prior bone marrow biopsy, worrisome for myelodysplastic syndrome or a mixed myelodysplastic syndrome/myeloproliferative neoplasm. WBC 52.3 on 08/29/2019. 3. Anemia. Continue to monitor and transfuse as needed. 4. Pneumonia and sepsis. Continue management per Dr. Carlito Cruz and Infectious Diseases and Pulmonary Medicine. Comment Review of Relevant I have reviewed the following items deepak (where applicable) has been applied. Labs Laboratory Tests Test 08/28/19 12:00 08/28/19 16:20 08/28/19 20:47 08/29/19 04:15 Glucose (Fingerstick) 211 mg/dL (70-99) 217 mg/dL (70-99) 194 mg/dL (70-99) White Blood Count 52.3 x10^3/uL (4.0-11.0) Red Blood Count 2.18 x10^6/uL (3.50-5.40) Hemoglobin 6.9 g/dL (12.0-15.5) Hematocrit 22.0 % (36.0-47.0) Mean Corpuscular Volume 101 fL (79-100) Mean Corpuscular Hemoglobin 32 pg (25-35) Mean Corpuscular Hemoglobin Concent 31 g/dL (31-37) Red Cell Distribution Width 23.6 % (11.5-14.5) Platelet Count 671 x10^3/uL (140-400) Neutrophils (%) (Auto) 91 % (31-73) Lymphocytes (%) (Auto) 6 % (24-48) Monocytes (%) (Auto) 3 % (0-9) Eosinophils (%) (Auto) 0 % (0-3) Basophils (%) (Auto) 0 % (0-3) Neutrophils # (Auto) 47.8 x10^3/uL (1.8-7.7) Lymphocytes # (Auto) 3.0 x10^3/uL (1.0-4.8) Monocytes # (Auto) 1.3 x10^3/uL (0.0-1.1) Eosinophils # (Auto) 0.0 x10^3/uL (0.0-0.7) Basophils # (Auto) 0.2 x10^3/uL (0.0-0.2) Sodium Level 147 mmol/L (136-145) Potassium Level 3.9 mmol/L (3.5-5.1) Chloride Level 110 mmol/L (98-107) Carbon Dioxide Level 28 mmol/L (21-32) Anion Gap 9 (6-14) Blood Urea Nitrogen 39 mg/dL (7-20) Creatinine 1.3 mg/dL (0.6-1.0) Estimated GFR (Cockcroft-Gault) 40.7 Glucose Level 171 mg/dL (70-99) Hemoglobin A1c 5.9 % (4.8-5.6) Calcium Level 8.0 mg/dL (8.5-10.1) Test 08/29/19 07:21 08/29/19 11:32 08/29/19 16:38 08/29/19 20:26 Glucose (Fingerstick) 144 mg/dL (70-99) 126 mg/dL (70-99) 110 mg/dL (70-99) 152 mg/dL (70-99) Test 08/30/19 07:28 Glucose (Fingerstick) 89 mg/dL (70-99) Laboratory Tests Test 08/29/19 11:32 08/29/19 16:38 08/29/19 20:26 08/30/19 07:28 Glucose (Fingerstick) 126 mg/dL (70-99) 110 mg/dL (70-99) 152 mg/dL (70-99) 89 mg/dL (70-99) Microbiology 08/27/19 Blood Culture - Final, Complete Medications Current Medications Methylprednisolone Sodium Succinate (SOLU-Medrol 125MG VIAL) 125 mg 1X ONCE IV Last administered on 08/27/19at 17:04; Start 08/27/19 at 16:45; Stop 08/27/19 at 16:46; Status DC Albuterol/ Ipratropium (Duoneb) 3 ml 1X ONCE NEB Last administered on 08/27/19at 17:58; Start 08/27/19 at 16:45; Stop 08/27/19 at 16:46; Status DC Piperacillin Sod/ Tazobactam Sod 3.375 gm/Sodium Chloride 50 ml @ 100 mls/hr 1X STAT IV Last administered on 08/27/19at 18:32; Start 08/27/19 at 17:17; Stop 08/27/19 at 17:46; Status DC Vancomycin HCl 1.5 gm/Sodium Chloride 500 ml @ 250 mls/hr 1X STAT IV Last administered on 08/27/19at 18:32; Start 08/27/19 at 17:17; Stop 08/27/19 at 19:16; Status DC Sodium Chloride 1,000 ml @ 1,000 mls/hr 1X STAT IV ; Start 08/27/19 at 17:17; Stop 08/27/19 at 17:36; Status DC Sodium Chloride 1,000 ml @ 1,000 mls/hr 1X STAT IV Last administered on 08/27/19at 17:40; Start 08/27/19 at 17:17; Stop 08/27/19 at 18:16; Status DC Potassium Chloride (Klor-Con) 40 meq 1X STAT PO ; Start 08/27/19 at 17:51; Stop 08/27/19 at 17:54; Status DC Ondansetron HCl (Zofran) 4 mg PRN Q8HRS PRN IV NAUSEA/VOMITING; Start 08/27/19 at 18:30; Stop 08/28/19 at 18:29; Status DC Acetaminophen (Tylenol) 650 mg PRN Q4HRS PRN PO FEVER; Start 08/27/19 at 18:30; Stop 08/28/19 at 10:27; Status DC Albuterol/ Ipratropium (Duoneb) 3 ml RTQID NEB Last administered on 08/28/19at 15:46; Start 08/27/19 at 20:00; Stop 08/28/19 at 19:59; Status DC Potassium Chloride/Dextrose/ Sod Cl 1,000 ml @ 75 mls/hr [id number] IV Last administered on 08/28/19at 10:10; Start 08/27/19 at 21:00; Stop 08/28/19 at 10:25; Status DC Bupropion HCl (Wellbutrin Xl) 150 mg DAILY PO Last administered on 08/30/19at 08:01; Start 08/28/19 at 09:00 Acetaminophen/ Hydrocodone Bitart (Lortab 7.5/325) 0.5 tab PRN Q4HRS PRN PO MODERATE PAIN 4-6 Last administered on 08/29/19at 17:45; Start 08/28/19 at 00:00 Albuterol Sulfate (Ventolin Neb Soln) 2.5 mg PRN QID PRN NEB SHORTNESS OF BREATH Last administered on 08/28/19at 00:28; Start 08/28/19 at 00:30; Stop 08/28/19 at 10:25; Status DC Levothyroxine Sodium (Synthroid) 175 mcg DAILYAC PO Last administered on 08/30/19at 07:41; Start 08/28/19 at 07:30 Fish Oil (Fish Oil) 1 mg BID PO Last administered on 08/28/19at 20:42; Start 08/28/19 at 09:00; Stop 08/29/19 at 09:29; Status DC Oxybutynin Chloride (Ditropan) 5 mg TID PO ; Start 08/28/19 at 09:00; Stop 08/28/19 at 01:05; Status DC Polyethylene Glycol (miraLAX PACKET) 17 gm DAILY PO Last administered on 08/30/19at 07:59; Start 08/28/19 at 09:00 Ropinirole HCl (Requip) 3 mg 5XDAY PO ; Start 08/28/19 at 06:00; Stop 08/28/19 at 01:10; Status DC Non-Formulary Medication (Carbidopa/ Levodopa (Sinemet Cr 50-200 Tablet)) 1 each TID PO ; Start 08/28/19 at 09:00; Stop 08/28/19 at 00:19; Status DC Multivitamins (Thera M Plus) 1 tab DAILY PO Last administered on 08/30/19at 08:00; Start 08/28/19 at 09:00 Non-Formulary Medication (Safinamide Mesylate (Xadago)) 50 mg DAILY PO ; Start 08/28/19 at 09:00; Stop 08/28/19 at 08:59; Status DC Carbidopa/Levodopa (Sinemet Cr) 2 tab.sa 5XDAY PO Last administered on 08/29/19at 16:41; Start 08/28/19 at 06:00; Stop 08/29/19 at 17:34; Status DC Oxybutynin Chloride (Ditropan) 5 mg TID PO Last administered on 08/30/19at 08:00; Start 08/28/19 at 01:15 Ropinirole HCl (Requip) 3 mg 5XDAY PO Last administered on 08/29/19at 16:42; Start 08/28/19 at 01:15; Stop 08/29/19 at 17:29; Status DC Acetaminophen/ Hydrocodone Bitart (Lortab 7.5/325) 1 tab PRN Q4HRS PRN PO SEVERE PAIN 7-10 Last administered on 08/30/19at 08:00; Start 08/28/19 at 02:00 Magnesium Hydroxide (Milk Of Magnesia) 2,400 mg PRN DAILY PRN PO CONSTIPATION 1ST CHOICE; Start 08/28/19 at 03:30 Piperacillin Sod/ Tazobactam Sod (Zosyn Per Pharmacy) 1 each PRN DAILY PRN MC SEE COMMENTS; Start 08/28/19 at 06:45 Vancomycin HCl (Vanco Per Pharmacy) 1 each PRN DAILY PRN MC SEE COMMENTS Last administered on 08/28/19at 06:52; Start 08/28/19 at 06:45; Stop 08/28/19 at 07:43; Status DC Piperacillin Sod/ Tazobactam Sod 3.375 gm/Sodium Chloride 50 ml @ 100 mls/hr Q6HRS IV Last administered on 08/30/19at 05:06; Start 08/28/19 at 07:00 Vancomycin HCl 1.5 gm/Sodium Chloride 500 ml @ 250 mls/hr Q24H IV Last administered on 08/28/19at 16:52; Start 08/28/19 at 18:00; Stop 08/29/19 at 09:06; Status DC Vancomycin HCl (Vancomycin Trough Level) 1 each 1X ONCE MC ; Start 08/29/19 at 17:30; Stop 08/29/19 at 17:31; Status Cancel Azithromycin 500 mg/Sodium Chloride 250 ml @ 250 mls/hr Q24H IV Last administered on 08/30/19at 07:43; Start 08/28/19 at 08:00 Albuterol Sulfate (Ventolin Neb Soln) 2.5 mg RTQID NEB Last administered on 08/30/19at 07:06; Start 08/28/19 at 12:00 Enoxaparin Sodium (Lovenox 40mg Syringe) 40 mg Q24H SQ ; Start 08/28/19 at 11:00; Stop 08/28/19 at 10:38; Status DC Potassium Chloride (Klor-Con) 20 meq 1X ONCE PO Last administered on 08/28/19at 11:26; Start 08/28/19 at 11:00; Stop 08/28/19 at 11:01; Status DC Lactulose (Lactulose) 20 gm Q2H PO Last administered on 08/28/19at 11:53; Start 08/28/19 at 12:00; Stop 08/28/19 at 14:01; Status DC Acetaminophen (Tylenol) 650 mg PRN Q6HRS PRN PO MILD PAIN / TEMP; Start 08/28/19 at 10:30 Vancomycin HCl (Vanco Per Pharmacy) 1 each PRN DAILY PRN MC SEE COMMENTS; Start 08/28/19 at 10:45; Status Cancel Insulin Human Lispro (HumaLOG) 0-6 UNITS TIDWMEALS SQ Last administered on 08/28/19at 16:54; Start 08/28/19 at 12:00 Potassium Chloride/Dextrose/ Sod Cl 1,000 ml @ 60 mls/hr [id number] IV Last administered on 08/29/19at 19:58; Start 08/28/19 at 10:45 Enoxaparin Sodium (Lovenox 40mg Syringe) 40 mg Q24H SQ ; Start 08/28/19 at 21:00; Stop 08/28/19 at 10:50; Status DC Pantoprazole Sodium (Protonix) 40 mg DAILYAC PO Last administered on 08/30/19at 07:41; Start 08/28/19 at 12:15 Polyethylene Glycol (miraLAX PACKET) 17 gm PRN DAILY PRN PO CONSTIPATION; Start 08/28/19 at 12:15 Fish Oil (Fish Oil) 1,000 mg DAILY PO Last administered on 08/30/19at 07:59; Start 08/29/19 at 09:30 Magnesium Citrate (Citroma) 296 ml 1X ONCE PO Last administered on 08/29/19 11:18; Start 08/29/19 at 10:15; Stop 08/29/19 at 10:16; Status DC Bisacodyl (Dulcolax Tab) 10 mg 1X ONCE PO Last administered on 08/29/19at 11:18; Start 08/29/19 at 11:00; Stop 08/29/19 at 11:02; Status DC Lactobacillus Rhamnosus (Culturelle) 1 cap BID PO Last administered on 08/30/19at 08:00; Start 08/29/19 at 21:00 Ibuprofen (Motrin) 200 mg PRN Q6HRS PRN PO INFLAMMATION Last administered on 08/29/19 19:54; Start 08/29/19 at 16:15 Trazodone HCl (Desyrel) 50 mg PRN QHS PRN PO INSOMNIA Last administered on 08/29/19 19:56; Start 08/29/19 at 16:15 Ropinirole HCl (Requip) 3 mg 0600,0900,1200,1600 PO Last administered on 1/9/20at 08:01; Start 08/30/19 at 06:00 Ropinirole HCl (Requip) 3 mg Q24H PO Last administered on 08/29/19at 19:55; Start 08/29/19 at 20:00 Carbidopa/Levodopa (Sinemet Cr) 2 tab.sa 0600,0900,1200,1600 PO Last administered on 08/30/19at 08:01; Start 08/30/19 at 06:00 Carbidopa/Levodopa (Sinemet Cr) 2 tab.sa Q24H PO Last administered on 08/29/19at 19:54; Start 08/29/19 at 20:00 Active Scripts Active Requip (Ropinirole Hcl) 1 Mg Tablet 3 Mg PO QID@06,11,16,21 Miralax (Polyethylene Glycol 3350) 17 Gm Powd.pack 17 Gm PO DAILY Diazepam 5 Mg Tablet 5 Mg PO PRN BID PRN Reported Losartan-Hctz 50-12.5 Mg Tab (Losartan/Hydrochlorothiazide) 1 Each Tablet 1 Tab PO DAILY Xadago (Safinamide Mesylate) 50 Mg Tablet 50 Mg PO DAILY Levothyroxine Sodium 175 Mcg Tablet 175 Mcg PO DAILYAC Hydrocodone-Apap 7.5-325 (Hydrocodone Bit/Acetaminophen) 1 Each Tablet 0.5-1 Tab PO PRN Q4-6HRS PRN Proair Hfa Inhaler (Albuterol Sulfate) 8.5 Gm Hfa.aer.ad 8.5 Gm IH PRN Duoneb 0.5 Mg-3 Mg/3 Ml Soln (Ipratropium/Albuterol Sulfate) 3 Ml Ampul.neb 3 Ml IH PRN Bupropion Xl (Bupropion Hcl) 150 Mg Tab.er.24h 150 Mg PO DAILY Oxybutynin Chloride 5 Mg Tablet 5 Mg PO TID Sinemet Cr 50-200 Tablet (Carbidopa/Levodopa) 1 Each Tablet.er 1 Each PO TID Daily Vitamin (Multivitamin) 1 Each Tablet 1 Each PO DAILY Fish Oil 1,000 Mg Capsule ([place]-3 Fatty Acids/Fish Oil) 1 Each Capsule 1 Each PO BID Vitals/I & O Vital Sign - Last 24 Hours 08/29/19 08/29/19 08/29/19 08/29/19 11:00 12:23 13:33 14:21 Temp 98.4 98.6 98.4 98.6 Pulse 95 98 Resp 18 18 B/P (MAP) 113/95 (101) 119/48 Pulse Ox 96 94 O2 Delivery Nasal Cannula Nasal Cannula Nasal Cannula O2 Flow Rate 2.0 2.0 2.0 08/29/19 08/29/19 08/29/19 08/29/19 14:33 14:39 14:59 15:00 Temp 98.6 98.6 98.5 98.6 98.6 98.5 Pulse 99 102 87 Resp 20 20 20 18 B/P (MAP) 147/64 114/92 130/40 (70) Pulse Ox 96 O2 Delivery Nasal Cannula O2 Flow Rate 2.0 08/29/19 08/29/19 08/29/19 08/29/19 15:23 16:23 16:44 17:28 Temp 98.4 98.5 98.4 98.5 Pulse 97 87 97 Resp 20 18 B/P (MAP) 119/74 130/40 113/32 Pulse Ox 94 O2 Delivery Nasal Cannula O2 Flow Rate 2.0 08/29/19 08/29/19 08/29/19 08/29/19 17:45 18:45 19:00 19:45 Temp 98.2 98.2 Pulse 98 Resp B/P (MAP) 138/55 (82) Pulse Ox 98 94 O2 Delivery Room Air Nasal Cannula Nasal Cannula O2 Flow Rate 2.0 2.0 08/29/19 08/29/19 08/29/19 08/30/19 20:00 23:00 23:31 00:31 Temp 98.0 98.0 Pulse 83 Resp 18 B/P (MAP) 93/63 (73) Pulse Ox 95 95 O2 Delivery Nasal Cannula Nasal Cannula Room Air Nasal Cannula O2 Flow Rate 2.0 2.0 2.0 08/30/19 08/30/19 08/30/19 08/30/19 03:00 03:50 04:50 07:00 Temp 98.0 97.9 98.0 97.9 Pulse 86 88 Resp 22 18 B/P (MAP) 101/69 (80) 127/57 (80) Pulse Ox 96 94 O2 Delivery Nasal Cannula Nasal Cannula Nasal Cannula Room Air O2 Flow Rate 2.0 2.0 2.0 08/30/19 08/30/19 08/30/19 07:07 08:00 08:00 Resp 18 Pulse Ox 93 O2 Delivery Nasal Cannula Room Air Nasal Cannula O2 Flow Rate 2.0 2.0 Intake and Output 08/29/19 08/29/19 08/30/19 15:00 23:00 07:00 Intake Total 240 ml 1140 ml Output Total 850 ml Balance -610 ml 1140 ml MARIO DE MD Aug 30, 2019 09:08
--- NOTE | 2019-08-30 09:23 | PDOC ---
Infectious Disease Note Subjective Subjective says not feeling well , ROS ROS no n/v/d/sob Vital Sign Vital Signs Vital Signs Date Time Temp Pulse Resp B/P (MAP) Pulse Ox O2 Delivery O2 Flow Rate FiO2 08/30/19 08:00 Nasal Cannula 2.0 08/30/19 08:00 18 08/30/19 07:07 93 08/30/19 07:00 97.9 88 127/57 (80) 97.9 Physical Exam PHYSICAL EXAM GENERAL: Alert, oriented female, not in distress. VITAL SIGNS: Stable, afebrile. HEENT: Both pupils are round and reacting. No conjunctival lesion, no lesion in the mouth. NECK: Supple, no JVP, no lymphadenopathy. LUNGS: Clear. HEART: S1, S2 regular. No gallop or murmur. ABDOMEN: Soft, nontender, no organomegaly. EXTREMITIES: No edema. The patient does have right leg bigger than the left. She says that is the way it is for years. There is no erythema. There is no cyanosis. NEUROLOGIC: Alert, awake and appropriate. No focal neurologic deficit. Labs Lab Laboratory Tests Test 08/29/19 11:32 08/29/19 16:38 08/29/19 20:26 08/30/19 07:28 Glucose (Fingerstick) 126 mg/dL (70-99) 110 mg/dL (70-99) 152 mg/dL (70-99) 89 mg/dL (70-99) Micro LOOD CULTURE Final GRAM POSITIVE COCCI IN PAIRS AND CHAINS, SUGGESTIVE OF STREP, IN 4 OF 4 BOTTLES, TWO SETS DRAWN. CALLED T0 VITOR LU RN IN ICU AT 8:40 ON 08/28/19 DW MT SENT TO [facility] FOR FURTHER WORKUP. Objective Assessment IMPRESSION: 1. Community-acquired pneumonia. 2. Leukocytosis/leukemoid reaction. 3. Acute kidney injury. 4. Hypoxemia. 5. Parkinson's disease. 6. Hypertension. 7. Hypothyroidism. 8. Strep 4/4, likely strep pneumo Plan Plan of Care cont antibiotics cont ROSSY Alexandra MD Aug 30, 2019 09:23
[2019-08-30 09:40] LABS: BASO # 0.2 x10^3/uL (0.0-0.2); BASO % 0 % (0-3); EOS % 3 % (0-3); HEMATOCRIT 25.4 % (36.0-47.0); LYMPH % 14 % (24-48); MEAN CORPUSCULAR HEMOGLOBIN 32 pg (25-35); MEAN CORPUSCULAR HGB CONC 32 g/dL (31-37); MEAN CORPUSCULAR VOLUME 100 fL (79-100); MONO # 0.8 x10^3/uL (0.0-1.1); MONO % 2 % (0-9); NEUT # 30.1 x10^3/uL (1.8-7.7); NEUT % 81 % (31-73); PLATELET COUNT 624 x10^3/uL (140-400); RED BLOOD COUNT 2.54 x10^6/uL (3.50-5.40); RED CELL DISTRIBUTION WIDTH 22.3 % (11.5-14.5)
[2019-08-30 11:00] VITALS: BP 181/63
--- NOTE | 2019-08-30 11:06 | PDOC ---
PROGRESS NOTES Subjective Subjective feels better. some coughing. she had a BM.lab reviewed. wbc 37K and hgb 8.0 Objective Objective Vital Signs Date Time Temp Pulse Resp B/P (MAP) Pulse Ox O2 Delivery O2 Flow Rate FiO2 08/30/19 09:00 18 08/30/19 08:00 Nasal Cannula 2.0 08/30/19 07:07 93 08/30/19 07:00 97.9 88 127/57 (80) 97.9 Intake and Output 08/30/19 07:00 Intake Total 1380 ml Output Total 850 ml Balance 530 ml Intake Oral 1380 ml Output Urine Total 850 ml # Bowel Movements 1 Physical Exam Abdomen: Soft Heart: Regular rate, Normal S1, Normal S2 Extremities: No edema General: Alert HEENT: Atraumatic Lungs: Other (decreased breath wounds and crackles right lung base) Neuro: Normal speech Psych/Mental Status: Mental status NL Skin: No rashes Assessment Assessment Problems1. suspected Strep pneumonia. 2. Suspect Streptococcus bacteremia, recent sepsis 3. Acute hypoxic respiratory failure. 4. Myelodysplasia with a leukemoid reaction. 5. Chronic anemia. 7. Parkinson's disease. 8. Hypertension. 9. Hypothyroidism. oropharyngeal dysphagia Medical Problems: (1) NATALIE (acute kidney injury) Status: Acute (2) Anemia Status: Acute (3) Hypokalemia Status: Acute (4) Hypoxia Status: Acute (5) Pneumonia Status: Acute Plan Plan of Care continue iv zosyn and zithromax continue iv fluids PT and OT and ST labs tomorrow Comment Review of Relevant I have reviewed the following items deepak (where applicable) has been applied. Labs Laboratory Tests Test 08/28/19 12:00 08/28/19 16:20 08/28/19 20:47 08/29/19 04:15 Glucose (Fingerstick) 211 mg/dL (70-99) 217 mg/dL (70-99) 194 mg/dL (70-99) White Blood Count 52.3 x10^3/uL (4.0-11.0) Red Blood Count 2.18 x10^6/uL (3.50-5.40) Hemoglobin 6.9 g/dL (12.0-15.5) Hematocrit 22.0 % (36.0-47.0) Mean Corpuscular Volume 101 fL (79-100) Mean Corpuscular Hemoglobin 32 pg (25-35) Mean Corpuscular Hemoglobin Concent 31 g/dL (31-37) Red Cell Distribution Width 23.6 % (11.5-14.5) Platelet Count 671 x10^3/uL (140-400) Neutrophils (%) (Auto) 91 % (31-73) Lymphocytes (%) (Auto) 6 % (24-48) Monocytes (%) (Auto) 3 % (0-9) Eosinophils (%) (Auto) 0 % (0-3) Basophils (%) (Auto) 0 % (0-3) Neutrophils # (Auto) 47.8 x10^3/uL (1.8-7.7) Lymphocytes # (Auto) 3.0 x10^3/uL (1.0-4.8) Monocytes # (Auto) 1.3 x10^3/uL (0.0-1.1) Eosinophils # (Auto) 0.0 x10^3/uL (0.0-0.7) Basophils # (Auto) 0.2 x10^3/uL (0.0-0.2) Sodium Level 147 mmol/L (136-145) Potassium Level 3.9 mmol/L (3.5-5.1) Chloride Level 110 mmol/L (98-107) Carbon Dioxide Level 28 mmol/L (21-32) Anion Gap 9 (6-14) Blood Urea Nitrogen 39 mg/dL (7-20) Creatinine 1.3 mg/dL (0.6-1.0) Estimated GFR (Cockcroft-Gault) 40.7 Glucose Level 171 mg/dL (70-99) Hemoglobin A1c 5.9 % (4.8-5.6) Calcium Level 8.0 mg/dL (8.5-10.1) Test 08/29/19 07:21 08/29/19 11:32 08/29/19 16:38 08/29/19 20:26 Glucose (Fingerstick) 144 mg/dL (70-99) 126 mg/dL (70-99) 110 mg/dL (70-99) 152 mg/dL (70-99) Test 08/30/19 07:28 08/30/19 09:25 Glucose (Fingerstick) 89 mg/dL (70-99) White Blood Count 37.0 x10^3/uL (4.0-11.0) Red Blood Count 2.54 x10^6/uL (3.50-5.40) Hemoglobin 8.0 g/dL (12.0-15.5) Hematocrit 25.4 % (36.0-47.0) Mean Corpuscular Volume 100 fL (79-100) Mean Corpuscular Hemoglobin 32 pg (25-35) Mean Corpuscular Hemoglobin Concent 32 g/dL (31-37) Red Cell Distribution Width 22.3 % (11.5-14.5) Platelet Count 624 x10^3/uL (140-400) Neutrophils (%) (Auto) 81 % (31-73) Lymphocytes (%) (Auto) 14 % (24-48) Monocytes (%) (Auto) 2 % (0-9) Eosinophils (%) (Auto) 3 % (0-3) Basophils (%) (Auto) 0 % (0-3) Neutrophils # (Auto) 30.1 x10^3/uL (1.8-7.7) Lymphocytes # (Auto) 5.0 x10^3/uL (1.0-4.8) Monocytes # (Auto) 0.8 x10^3/uL (0.0-1.1) Eosinophils # (Auto) 1.0 x10^3/uL (0.0-0.7) Basophils # (Auto) 0.2 x10^3/uL (0.0-0.2) Laboratory Tests Test 08/29/19 11:32 08/29/19 16:38 08/29/19 20:26 08/30/19 07:28 Glucose (Fingerstick) 126 mg/dL (70-99) 110 mg/dL (70-99) 152 mg/dL (70-99) 89 mg/dL (70-99) Test 08/30/19 09:25 White Blood Count 37.0 x10^3/uL (4.0-11.0) Red Blood Count 2.54 x10^6/uL (3.50-5.40) Hemoglobin 8.0 g/dL (12.0-15.5) Hematocrit 25.4 % (36.0-47.0) Mean Corpuscular Volume 100 fL (79-100) Mean Corpuscular Hemoglobin 32 pg (25-35) Mean Corpuscular Hemoglobin Concent 32 g/dL (31-37) Red Cell Distribution Width 22.3 % (11.5-14.5) Platelet Count 624 x10^3/uL (140-400) Neutrophils (%) (Auto) 81 % (31-73) Lymphocytes (%) (Auto) 14 % (24-48) Monocytes (%) (Auto) 2 % (0-9) Eosinophils (%) (Auto) 3 % (0-3) Basophils (%) (Auto) 0 % (0-3) Neutrophils # (Auto) 30.1 x10^3/uL (1.8-7.7) Lymphocytes # (Auto) 5.0 x10^3/uL (1.0-4.8) Monocytes # (Auto) 0.8 x10^3/uL (0.0-1.1) Eosinophils # (Auto) 1.0 x10^3/uL (0.0-0.7) Basophils # (Auto) 0.2 x10^3/uL (0.0-0.2) Microbiology 08/27/19 Blood Culture - Final, Complete Medications Current Medications Methylprednisolone Sodium Succinate (SOLU-Medrol 125MG VIAL) 125 mg 1X ONCE IV Last administered on 08/27/19at 17:04; Start 08/27/19 at 16:45; Stop 08/27/19 at 16:46; Status DC Albuterol/ Ipratropium (Duoneb) 3 ml 1X ONCE NEB Last administered on 08/27/19at 17:58; Start 08/27/19 at 16:45; Stop 08/27/19 at 16:46; Status DC Piperacillin Sod/ Tazobactam Sod 3.375 gm/Sodium Chloride 50 ml @ 100 mls/hr 1X STAT IV Last administered on 08/27/19at 18:32; Start 08/27/19 at 17:17; Stop 08/27/19 at 17:46; Status DC Vancomycin HCl 1.5 gm/Sodium Chloride 500 ml @ 250 mls/hr 1X STAT IV Last administered on 08/27/19at 18:32; Start 08/27/19 at 17:17; Stop 08/27/19 at 19:16; Status DC Sodium Chloride 1,000 ml @ 1,000 mls/hr 1X STAT IV ; Start 08/27/19 at 17:17; Stop 08/27/19 at 17:36; Status DC Sodium Chloride 1,000 ml @ 1,000 mls/hr 1X STAT IV Last administered on 08/27/19at 17:40; Start 08/27/19 at 17:17; Stop 08/27/19 at 18:16; Status DC Potassium Chloride (Klor-Con) 40 meq 1X STAT PO ; Start 08/27/19 at 17:51; Stop 08/27/19 at 17:54; Status DC Ondansetron HCl (Zofran) 4 mg PRN Q8HRS PRN IV NAUSEA/VOMITING; Start 08/27/19 at 18:30; Stop 08/28/19 at 18:29; Status DC Acetaminophen (Tylenol) 650 mg PRN Q4HRS PRN PO FEVER; Start 08/27/19 at 18:30; Stop 08/28/19 at 10:27; Status DC Albuterol/ Ipratropium (Duoneb) 3 ml RTQID NEB Last administered on 08/28/19at 15:46; Start 08/27/19 at 20:00; Stop 08/28/19 at 19:59; Status DC Potassium Chloride/Dextrose/ Sod Cl 1,000 ml @ 75 mls/hr [id number] IV Last administered on 08/28/19at 10:10; Start 08/27/19 at 21:00; Stop 08/28/19 at 10:25; Status DC Bupropion HCl (Wellbutrin Xl) 150 mg DAILY PO Last administered on 08/30/19at 08:01; Start 08/28/19 at 09:00 Acetaminophen/ Hydrocodone Bitart (Lortab 7.5/325) 0.5 tab PRN Q4HRS PRN PO MODERATE PAIN 4-6 Last administered on 08/29/19at 17:45; Start 08/28/19 at 00:00 Albuterol Sulfate (Ventolin Neb Soln) 2.5 mg PRN QID PRN NEB SHORTNESS OF BREATH Last administered on 08/28/19at 00:28; Start 08/28/19 at 00:30; Stop 08/28/19 at 10:25; Status DC Levothyroxine Sodium (Synthroid) 175 mcg DAILYAC PO Last administered on 08/30/19at 07:41; Start 08/28/19 at 07:30 Fish Oil (Fish Oil) 1 mg BID PO Last administered on 08/28/19at 20:42; Start 08/28/19 at 09:00; Stop 08/29/19 at 09:29; Status DC Oxybutynin Chloride (Ditropan) 5 mg TID PO ; Start 08/28/19 at 09:00; Stop 08/28/19 at 01:05; Status DC Polyethylene Glycol (miraLAX PACKET) 17 gm DAILY PO Last administered on 08/30/19at 07:59; Start 08/28/19 at 09:00 Ropinirole HCl (Requip) 3 mg 5XDAY PO ; Start 08/28/19 at 06:00; Stop 08/28/19 at 01:10; Status DC Non-Formulary Medication (Carbidopa/ Levodopa (Sinemet Cr 50-200 Tablet)) 1 each TID PO ; Start 08/28/19 at 09:00; Stop 08/28/19 at 00:19; Status DC Multivitamins (Thera M Plus) 1 tab DAILY PO Last administered on 08/30/19at 08:00; Start 08/28/19 at 09:00 Non-Formulary Medication (Safinamide Mesylate (Xadago)) 50 mg DAILY PO ; Start 08/28/19 at 09:00; Stop 08/28/19 at 08:59; Status DC Carbidopa/Levodopa (Sinemet Cr) 2 tab.sa 5XDAY PO Last administered on 08/29/19at 16:41; Start 08/28/19 at 06:00; Stop 08/29/19 at 17:34; Status DC Oxybutynin Chloride (Ditropan) 5 mg TID PO Last administered on 08/30/19at 08:00; Start 08/28/19 at 01:15 Ropinirole HCl (Requip) 3 mg 5XDAY PO Last administered on 08/29/19at 16:42; Start 08/28/19 at 01:15; Stop 08/29/19 at 17:29; Status DC Acetaminophen/ Hydrocodone Bitart (Lortab 7.5/325) 1 tab PRN Q4HRS PRN PO SEVERE PAIN 7-10 Last administered on 08/30/19at 08:00; Start 08/28/19 at 02:00 Magnesium Hydroxide (Milk Of Magnesia) 2,400 mg PRN DAILY PRN PO CONSTIPATION 1ST CHOICE; Start 08/28/19 at 03:30 Piperacillin Sod/ Tazobactam Sod (Zosyn Per Pharmacy) 1 each PRN DAILY PRN MC SEE COMMENTS; Start 08/28/19 at 06:45 Vancomycin HCl (Vanco Per Pharmacy) 1 each PRN DAILY PRN MC SEE COMMENTS Last administered on 08/28/19at 06:52; Start 08/28/19 at 06:45; Stop 08/28/19 at 07:43; Status DC Piperacillin Sod/ Tazobactam Sod 3.375 gm/Sodium Chloride 50 ml @ 100 mls/hr Q6HRS IV Last administered on 08/30/19at 05:06; Start 08/28/19 at 07:00 Vancomycin HCl 1.5 gm/Sodium Chloride 500 ml @ 250 mls/hr Q24H IV Last admin istered on 08/28/19at 16:52; Start 08/28/19 at 18:00; Stop 08/29/19 at 09:06; Status DC Vancomycin HCl (Vancomycin Trough Level) 1 each 1X ONCE MC ; Start 08/29/19 at 17:30; Stop 08/29/19 at 17:31; Status Cancel Azithromycin 500 mg/Sodium Chloride 250 ml @ 250 mls/hr Q24H IV Last administered on 08/30/19at 07:43; Start 08/28/19 at 08:00 Albuterol Sulfate (Ventolin Neb Soln) 2.5 mg RTQID NEB Last administered on 08/30/19at 07:06; Start 08/28/19 at 12:00 Enoxaparin Sodium (Lovenox 40mg Syringe) 40 mg Q24H SQ ; Start 08/28/19 at 11:00; Stop 08/28/19 at 10:38; Status DC Potassium Chloride (Klor-Con) 20 meq 1X ONCE PO Last administered on 08/28/19at 11:26; Start 08/28/19 at 11:00; Stop 08/28/19 at 11:01; Status DC Lactulose (Lactulose) 20 gm Q2H PO Last administered on 08/28/19at 11:53; Start 08/28/19 at 12:00; Stop 08/28/19 at 14:01; Status DC Acetaminophen (Tylenol) 650 mg PRN Q6HRS PRN PO MILD PAIN / TEMP; Start 08/28/19 at 10:30 Vancomycin HCl (Vanco Per Pharmacy) 1 each PRN DAILY PRN MC SEE COMMENTS; Start 08/28/19 at 10:45; Status Cancel Insulin Human Lispro (HumaLOG) 0-6 UNITS TIDWMEALS SQ Last administered on 08/28/19at 16:54; Start 08/28/19 at 12:00 Potassium Chloride/Dextrose/ Sod Cl 1,000 ml @ 60 mls/hr [id number] IV Last administered on 08/29/19at 19:58; Start 08/28/19 at 10:45 Enoxaparin Sodium (Lovenox 40mg Syringe) 40 mg Q24H SQ ; Start 08/28/19 at 21:00; Stop 08/28/19 at 10:50; Status DC Pantoprazole Sodium (Protonix) 40 mg DAILYAC PO Last administered on 08/30/19at 07:41; Start 08/28/19 at 12:15 Polyethylene Glycol (miraLAX PACKET) 17 gm PRN DAILY PRN PO CONSTIPATION; Start 08/28/19 at 12:15 Fish Oil (Fish Oil) 1,000 mg DAILY PO Last administered on 08/30/19at 07:59; Start 08/29/19 at 09:30 Magnesium Citrate (Citroma) 296 ml 1X ONCE PO Last administered on 08/29/19at 11 :18; Start 08/29/19 at 10:15; Stop 08/29/19 at 10:16; Status DC Bisacodyl (Dulcolax Tab) 10 mg 1X ONCE PO Last administered on 08/29/19at 11:18; Start 08/29/19 at 11:00; Stop 08/29/19 at 11:02; Status DC Lactobacillus Rhamnosus (Culturelle) 1 cap BID PO Last administered on 08/30/19at 08:00; Start 08/29/19 at 21:00 Ibuprofen (Motrin) 200 mg PRN Q6HRS PRN PO INFLAMMATION Last administered on 08/29/19at 19:54; Start 08/29/19 at 16:15 Trazodone HCl (Desyrel) 50 mg PRN QHS PRN PO INSOMNIA Last administered on 08/29/19at 19:56; Start 08/29/19 at 16:15 Ropinirole HCl (Requip) 3 mg 0600,0900,1200,1600 PO Last administered on 08/30/19at 08:01; Start 08/30/19 at 06:00 Ropinirole HCl (Requip) 3 mg Q24H PO Last administered on 08/29/19at 19:55; Start 08/29/19 at 20:00 Carbidopa/Levodopa (Sinemet Cr) 2 tab.sa 0600,0900,1200,1600 PO Last administered on 08/30/19at 08:01; Start 08/30/19 at 06:00 Carbidopa/Levodopa (Sinemet Cr) 2 tab.sa Q24H PO Last administered on 08/29/19at 19:54; Start 08/29/19 at 20:00 Active Scripts Active Requip (Ropinirole Hcl) 1 Mg Tablet 3 Mg PO QID@06,11,16,21 Miralax (Polyethylene Glycol 3350) 17 Gm Powd.pack 17 Gm PO DAILY Diazepam 5 Mg Tablet 5 Mg PO PRN BID PRN Reported Losartan-Hctz 50-12.5 Mg Tab (Losartan/Hydrochlorothiazide) 1 Each Tablet 1 Tab PO DAILY Xadago (Safinamide Mesylate) 50 Mg Tablet 50 Mg PO DAILY Levothyroxine Sodium 175 Mcg Tablet 175 Mcg PO DAILYAC Hydrocodone-Apap 7.5-325 (Hydrocodone Bit/Acetaminophen) 1 Each Tablet 0.5-1 Tab PO PRN Q4-6HRS PRN Proair Hfa Inhaler (Albuterol Sulfate) 8.5 Gm Hfa.aer.ad 8.5 Gm IH PRN Duoneb 0.5 Mg-3 Mg/3 Ml Soln (Ipratropium/Albuterol Sulfate) 3 Ml Ampul.neb 3 Ml IH PRN Bupropion Xl (Bupropion Hcl) 150 Mg Tab.er.24h 150 Mg PO DAILY Oxybutynin Chloride 5 Mg Tablet 5 Mg PO TID Sinemet Cr 50-200 Tablet (Carbidopa/Levodopa) 1 Each Tablet.er 1 Each PO TID Daily Vitamin (Multivitamin) 1 Each Tablet 1 Each PO DAILY Fish Oil 1,000 Mg Capsule ([place]-3 Fatty Acids/Fish Oil) 1 Each Capsule 1 Each PO BID Vitals/I & O Vital Sign - Last 24 Hours 08/29/19 08/29/19 08/29/19 08/29/19 12:23 13:33 14:21 14:33 Temp 98.6 98.6 Pulse 98 Resp 18 20 B/P (MAP) 119/48 Pulse Ox 94 O2 Delivery Nasal Cannula Nasal Cannula O2 Flow Rate 2.0 2.0 08/29/19 08/29/19 08/29/19 08/29/19 14:39 14:59 15:00 15:23 Temp 98.6 98.6 98.5 98.4 98.6 98.6 98.5 98.4 Pulse 99 102 87 97 Resp 20 20 18 20 B/P (MAP) 147/64 114/92 130/40 (70) 119/74 Pulse Ox 96 O2 Delivery Nasal Cannula O2 Flow Rate 2.0 08/29/19 08/29/19 08/29/19 08/29/19 16:23 16:44 17:28 17:45 Temp 98.5 98.5 Pulse 87 97 Resp 20 B/P (MAP) 130/40 113/32 Pulse Ox 94 O2 Delivery Nasal Cannula Room Air O2 Flow Rate 2.0 08/29/19 08/29/19 08/29/19 08/29/19 18:45 19:00 19:45 20:00 Temp 98.2 98.2 Pulse 98 Resp 22 B/P (MAP) 138/55 (82) Pulse Ox 98 94 O2 Delivery Nasal Cannula Nasal Cannula Nasal Cannula O2 Flow Rate 2.0 2.0 2.0 08/29/19 08/29/19 08/30/19 08/30/19 23:00 23:31 00:31 03:00 Temp 98.0 98.0 98.0 98.0 Pulse 83 86 Resp 18 22 B/P (MAP) 93/63 (73) 101/69 (80) Pulse Ox 95 95 96 O2 Delivery Nasal Cannula Room Air Nasal Cannula Nasal Cannula O2 Flow Rate 2.0 2.0 2.0 08/30/19 08/30/19 08/30/19 08/30/19 03:50 04:50 07:00 07:07 Temp 97.9 97.9 Pulse 88 Resp 18 B/P (MAP) 127/57 (80) Pulse Ox 94 93 O2 Delivery Nasal Cannula Nasal Cannula Room Air Nasal Cannula O2 Flow Rate 2.0 2.0 2.0 08/30/19 08/30/19 08/30/19 08:00 08:00 09:00 Resp 18 18 O2 Delivery Room Air Nasal Cannula O2 Flow Rate 2.0 Intake and Output 08/29/19 08/29/19 08/30/19 15:00 23:00 07:00 Intake Total 240 ml 1140 ml Output Total 850 ml Balance -610 ml 1140 ml YVETTE MAZARIEGOS MD Aug 30, 2019 11:06
--- NOTE | 2019-08-30 12:22 | PDOC ---
Subjective: Subjective: Walked to door and back, "was breathing really hard." Stooled overnight. Eating okay. Objective: Vital Signs: Vital Signs Date Time Temp Pulse Resp B/P (MAP) Pulse Ox O2 Delivery O2 Flow Rate FiO2 08/30/19 11:42 20 Room Air 08/30/19 11:36 93 2.0 08/30/19 11:00 98.0 73 181/63 (102) 98.0 Labs: Laboratory Tests Test 08/29/19 16:38 08/29/19 20:26 08/30/19 07:28 08/30/19 09:25 Glucose (Fingerstick) 110 mg/dL 152 mg/dL 89 mg/dL White Blood Count 37.0 x10^3/uL Red Blood Count 2.54 x10^6/uL Hemoglobin 8.0 g/dL Hematocrit 25.4 % Mean Corpuscular Volume 100 fL Mean Corpuscular Hemoglobin 32 pg Mean Corpuscular Hemoglobin Concent 32 g/dL Red Cell Distribution Width 22.3 % Platelet Count 624 x10^3/uL Neutrophils (%) (Auto) 81 % Lymphocytes (%) (Auto) 14 % Monocytes (%) (Auto) 2 % Eosinophils (%) (Auto) 3 % Basophils (%) (Auto) 0 % Neutrophils # (Auto) 30.1 x10^3/uL Lymphocytes # (Auto) 5.0 x10^3/uL Monocytes # (Auto) 0.8 x10^3/uL Eosinophils # (Auto) 1.0 x10^3/uL Basophils # (Auto) 0.2 x10^3/uL Test 08/30/19 10:49 Glucose (Fingerstick) 104 mg/dL Imaging: Speech Path Pt seen in f/u to dysphagia. Con't to c/o difficulty masticating solids d/t edentulous status and occasional food sticking in area of upper cervical esophagus. Respiratory status improved this date, as is laryngeal function. IMPRESSIONS: Current clinical observations support advancing to thin liquids but would con't puree given edentulous status, difficulty masticating and c/o food sticking. RECOMMENDATIONS: Dysphagia I w/thin liquids. Diet orders entered. Precautions posted HOB. Should be able to resume solids as luis felipe at home where she can be more selective re: food selection, cooking method, etc. DW pt, , and multiple family members. PE: GEN: NAD - up to chair eating lunch LUNGS: diminished anteriorly HEART: RRR ABD: S/ND/NT NEURO/PSYCH: A & O 3 A/P: CAP, leukocytosis (peripheral smear is suggestive of leukemoid reaction), GPC bacteremia, MDS Dysphagia Constipation - controlled -- Continue same per GI. EDER KEATING Aug 30, 2019 12:22
--- NOTE | 2019-08-30 12:27 | PDOC ---
PULMONARY PROGRESS NOTES Subjective less soa/ less cough Vitals Vital Signs Date Time Temp Pulse Resp B/P (MAP) Pulse Ox O2 Delivery O2 Flow Rate FiO2 08/30/19 11:42 20 Room Air 08/30/19 11:36 93 2.0 08/30/19 11:00 98.0 73 181/63 (102) 98.0 General: Alert, No acute distress Lungs: Other (few rhonchi) Cardiovascular: S1 Abdomen: Soft Extremities: Other (1=edema) Skin: Warm Labs Laboratory Tests Test 08/28/19 16:20 08/28/19 20:47 08/29/19 04:15 08/29/19 07:21 Glucose (Fingerstick) 217 mg/dL (70-99) 194 mg/dL (70-99) 144 mg/dL (70-99) White Blood Count 52.3 x10^3/uL (4.0-11.0) Red Blood Count 2.18 x10^6/uL (3.50-5.40) Hemoglobin 6.9 g/dL (12.0-15.5) Hematocrit 22.0 % (36.0-47.0) Mean Corpuscular Volume 101 fL (79-100) Mean Corpuscular Hemoglobin 32 pg (25-35) Mean Corpuscular Hemoglobin Concent 31 g/dL (31-37) Red Cell Distribution Width 23.6 % (11.5-14.5) Platelet Count 671 x10^3/uL (140-400) Neutrophils (%) (Auto) 91 % (31-73) Lymphocytes (%) (Auto) 6 % (24-48) Monocytes (%) (Auto) 3 % (0-9) Eosinophils (%) (Auto) 0 % (0-3) Basophils (%) (Auto) 0 % (0-3) Neutrophils # (Auto) 47.8 x10^3/uL (1.8-7.7) Lymphocytes # (Auto) 3.0 x10^3/uL (1.0-4.8) Monocytes # (Auto) 1.3 x10^3/uL (0.0-1.1) Eosinophils # (Auto) 0.0 x10^3/uL (0.0-0.7) Basophils # (Auto) 0.2 x10^3/uL (0.0-0.2) Sodium Level 147 mmol/L (136-145) Potassium Level 3.9 mmol/L (3.5-5.1) Chloride Level 110 mmol/L (98-107) Carbon Dioxide Level 28 mmol/L (21-32) Anion Gap 9 (6-14) Blood Urea Nitrogen 39 mg/dL (7-20) Creatinine 1.3 mg/dL (0.6-1.0) Estimated GFR (Cockcroft-Gault) 40.7 Glucose Level 171 mg/dL (70-99) Hemoglobin A1c 5.9 % (4.8-5.6) Calcium Level 8.0 mg/dL (8.5-10.1) Test 08/29/19 11:32 08/29/19 16:38 08/29/19 20:26 08/30/19 07:28 Glucose (Fingerstick) 126 mg/dL (70-99) 110 mg/dL (70-99) 152 mg/dL (70-99) 89 mg/dL (70-99) Test 08/30/19 09:25 08/30/19 10:49 White Blood Count 37.0 x10^3/uL (4.0-11.0) Red Blood Count 2.54 x10^6/uL (3.50-5.40) Hemoglobin 8.0 g/dL (12.0-15.5) Hematocrit 25.4 % (36.0-47.0) Mean Corpuscular Volume 100 fL (79-100) Mean Corpuscular Hemoglobin 32 pg (25-35) Mean Corpuscular Hemoglobin Concent 32 g/dL (31-37) Red Cell Distribution Width 22.3 % (11.5-14.5) Platelet Count 624 x10^3/uL (140-400) Neutrophils (%) (Auto) 81 % (31-73) Lymphocytes (%) (Auto) 14 % (24-48) Monocytes (%) (Auto) 2 % (0-9) Eosinophils (%) (Auto) 3 % (0-3) Basophils (%) (Auto) 0 % (0-3) Neutrophils # (Auto) 30.1 x10^3/uL (1.8-7.7) Lymphocytes # (Auto) 5.0 x10^3/uL (1.0-4.8) Monocytes # (Auto) 0.8 x10^3/uL (0.0-1.1) Eosinophils # (Auto) 1.0 x10^3/uL (0.0-0.7) Basophils # (Auto) 0.2 x10^3/uL (0.0-0.2) Glucose (Fingerstick) 104 mg/dL (70-99) Laboratory Tests Test 08/29/19 16:38 08/29/19 20:26 08/30/19 07:28 08/30/19 09:25 Glucose (Fingerstick) 110 mg/dL (70-99) 152 mg/dL (70-99) 89 mg/dL (70-99) White Blood Count 37.0 x10^3/uL (4.0-11.0) Red Blood Count 2.54 x10^6/uL (3.50-5.40) Hemoglobin 8.0 g/dL (12.0-15.5) Hematocrit 25.4 % (36.0-47.0) Mean Corpuscular Volume 100 fL (79-100) Mean Corpuscular Hemoglobin 32 pg (25-35) Mean Corpuscular Hemoglobin Concent 32 g/dL (31-37) Red Cell Distribution Width 22.3 % (11.5-14.5) Platelet Count 624 x10^3/uL (140-400) Neutrophils (%) (Auto) 81 % (31-73) Lymphocytes (%) (Auto) 14 % (24-48) Monocytes (%) (Auto) 2 % (0-9) Eosinophils (%) (Auto) 3 % (0-3) Basophils (%) (Auto) 0 % (0-3) Neutrophils # (Auto) 30.1 x10^3/uL (1.8-7.7) Lymphocytes # (Auto) 5.0 x10^3/uL (1.0-4.8) Monocytes # (Auto) 0.8 x10^3/uL (0.0-1.1) Eosinophils # (Auto) 1.0 x10^3/uL (0.0-0.7) Basophils # (Auto) 0.2 x10^3/uL (0.0-0.2) Test 1/9/20 10:49 Glucose (Fingerstick) 104 mg/dL (70-99) Medications Active Scripts Medications Dose Route/Sig Max Daily Dose Days Date Category Losartan-Hctz 50-12.5 Mg Tab (Losartan/Hydrochlorothiazide) 1 Each Tablet 1 Tab PO DAILY 08/28/19 Reported Xadago (Safinamide Mesylate) 50 Mg Tablet 50 Mg PO DAILY 12/27/18 Reported Levothyroxine Sodium 175 Mcg Tablet 175 Mcg PO DAILYAC 10/31/17 Reported Hydrocodone-Apap 7.5-325 (Hydrocodone Bit/Acetaminophen) 1 Each Tablet 0.5-1 Tab PO PRN Q4-6HRS PRN 10/31/17 Reported Requip (Ropinirole Hcl) 1 Mg Tablet 3 Mg PO QID@06,11,16,21 01/16/16 Rx Miralax (Polyethylene Glycol 3350) 17 Gm Powd.pack 17 Gm PO DAILY 01/16/16 Rx Diazepam 5 Mg Tablet 5 Mg PO PRN BID PRN 01/16/16 Rx Proair Hfa Inhaler (Albuterol Sulfate) 8.5 Gm Hfa.aer.ad 8.5 Gm IH PRN 12/07/13 Reported Duoneb 0.5 Mg-3 Mg/3 Ml Soln (Ipratropium/Albuterol Sulfate) 3 Ml Ampul.neb 3 Ml IH PRN 12/07/13 Reported Bupropion Xl (Bupropion Hcl) 150 Mg Tab.er.24h 150 Mg PO DAILY 12/07/13 Reported Oxybutynin Chloride 5 Mg Tablet 5 Mg PO TID 12/07/13 Reported Sinemet Cr 50-200 Tablet (Carbidopa/Levodopa) 1 Each Tablet.er 1 Each PO TID 12/07/13 Reported Daily Vitamin (Multivitamin) 1 Each Tablet 1 Each PO DAILY 12/07/13 Reported Fish Oil 1,000 Mg Capsule ([place]-3 Fatty Acids/Fish Oil) 1 Each Capsule 1 Each PO BID 12/07/13 Reported Impression . 1. Acute hypoxic respiratory failure secondary to pneumonia, likely gram negative. Cannot exclude gram positive. Influenza screen negative. 2. Abnormal chest x-ray consistent with right upper lobe consolidation and right lower lobe infiltrate, favoring pneumonia. 3. Underlying obesity also contributing to her dyspnea. 4. Marked leukocytosis. MDS. Hematology is following. 5. Marked anemia. MDS by biopsy. no gastrointestinal bleed.. Hematology is following. 6. Increased procalcitonin level suggesting infectious etiology. 7. Gram positive bacteremia Plan . 1. We will continue with present oxygen. 2. We will monitor respiratory status closely. p.r.n. BiPAP. 3. Monitor fevers. 4. Monitor white cell count and hemoglobin. 5. Broad-spectrum antibiotics per Infectious Disease. 7. Continue bronchodilators. 8. Discussed with RN 9. f/u cxr in RAD[facility] Alvarez MD Aug 30, 2019 12:26
--- NOTE | 2019-08-30 14:49 | RAD ---
CHEST AP ONLY Clinical Indication: Pneumonia Comparison: 08/27/2019 Portable Chest X-ray Exam. Findings: Portable upright frontal view of the chest was obtained. Stimulator leads bilaterally are seen again. Decrease vertebral lobe consolidation noted. Prior exam. Small right pleural effusion with adjacent atelectasis noted. Minimal left costophrenic angle blunting. Pulmonary vascular is borderline. Mild left basilar retrocardiac infiltrate or atelectasis is decreased. IMPRESSION: Improving aeration with decreased right upper lobe and retrocardiac consolidations. Small pleural effusions again seen. Electronically signed by: Guillermo Perez MD (08/30/2019 2:46 PM) [facility]
[2019-08-30 15:00] VITALS: BP 114/70
[2019-08-30 17:03] LABS: WHITE BLOOD COUNT 52.3 x10^3/uL (4.0-11.0)
[2019-08-30] MEDS: POTASSIUM CL 20MEQ D5-0.45NACL 1,000 ML IV SCH (18:01)
[2019-08-30] MEDS: IBUPROFEN 200 MG TABLET. PO PRN (18:11)
[2019-08-30 19:00] VITALS: BP 128/41
[2019-08-30] MEDS: traZODone 50 MG TABLET. PO PRN (20:29)
[2019-08-30 23:00] VITALS: BP 129/48
[2019-08-31] MEDS: PIPERACILLIN/TAZOBACTAM 3.375 GM in IV NORMAL SALINE 50ML 50 ML IV SCH ×3 (00:01→12:07)
[2019-08-31] MEDS: IBUPROFEN 200 MG TABLET. PO PRN (02:15)
[2019-08-31 03:00] VITALS: BP 136/56
[2019-08-31 03:56] LABS: BASO # 0.2 x10^3/uL (0.0-0.2); BASO % 0 % (0-3); EOS # 1.1 x10^3/uL (0.0-0.7); EOS % 3 % (0-3); HEMOGLOBIN 8.5 g/dL (12.0-15.5); LYMPH # 5.4 x10^3/uL (1.0-4.8); LYMPH % 15 % (24-48); MEAN CORPUSCULAR HEMOGLOBIN 34 pg (25-35); MEAN CORPUSCULAR HGB CONC 34 g/dL (31-37); MEAN CORPUSCULAR VOLUME 98 fL (79-100); MONO # 1.3 x10^3/uL (0.0-1.1); MONO % 4 % (0-9); NEUT # 27.3 x10^3/uL (1.8-7.7); NEUT % 78 % (31-73); PLATELET COUNT 593 x10^3/uL (140-400); RED BLOOD COUNT 2.54 x10^6/uL (3.50-5.40); RED CELL DISTRIBUTION WIDTH 21.3 % (11.5-14.5); WHITE BLOOD COUNT 35.2 x10^3/uL (4.0-11.0)
[2019-08-31 04:14] LABS: CALCIUM 8.1 mg/dL (8.5-10.1); GFR 55.1
[2019-08-31] MEDS: CARBIDOPA/LEVODOPA CR 25/100MG TABLET.SA. PO SCH ×4 (05:57→16:21)
[2019-08-31] MEDS: rOPINIRole 1 MG TABLET. PO SCH ×4 (05:57→16:21)
[2019-08-31 07:00] VITALS: BP 127/43
[2019-08-31] MEDS: ALBUTEROL SULFATE 2.5 MG/3 ML NEBU. NEB SCH ×3 (07:14→16:00)
[2019-08-31] MEDS: AZITHROMYCIN 500 MG in IV NORMAL SALINE 250ML 250 ML IV SCH (07:30)
[2019-08-31] MEDS: LEVOTHYROXINE 175 MCG TABLET PO SCH (07:31)
[2019-08-31] MEDS: PANTOPRAZOLE 40 MG TABLET.DR. PO SCH (07:32)
[2019-08-31] MEDS: HYDROcodone/APAP 7.5/325MG 1 TAB TABLET PO PRN ×2 (07:35→16:28)
[2019-08-31] MEDS: INSULIN LISPRO 300 UNITS/3 ML VIAL. SQ SCH ×2 (08:00→12:00)
--- NOTE | 2019-08-31 08:06 | RAD ---
Examination: PORTABLE CHEST 1V History: Pneumonia Comparison/Correlation: 08/30/2019 Findings: Upright portable frontal view of the chest was obtained. Bilateral stimulator devices are present. Decreased right apical consolidation is suggested. Increased right basilar pleural effusion and adjacent atelectasis or infiltrate is present. Small left pleural effusion noted. Pulmonary vasculature is mildly congested. Mild cardiomegaly. Impression: Mild congestive heart failure. Decreased right upper lung field infiltrate. Increased right basilar pleural effusion and adjacent atelectasis or infiltrate. Small left effusion again seen. Electronically signed by: Guillermo Perez MD (08/31/2019 8:03 AM) [facility]
--- NOTE | 2019-08-31 08:30 | PDOC ---
Infectious Disease Note Subjective Subjective says feeling well , ROS ROS no n/v/d/sob/fever Vital Sign Vital Signs Vital Signs Date Time Temp Pulse Resp B/P (MAP) Pulse Ox O2 Delivery O2 Flow Rate FiO2 08/31/19 07:35 18 Room Air 08/31/19 07:14 98 08/31/19 07:00 97.9 82 127/43 (71) 97.9 08/30/19 23:00 2.0 Physical Exam PHYSICAL EXAM GENERAL: Alert, oriented female, not in distress. VITAL SIGNS: Stable, afebrile. HEENT: Both pupils are round and reacting. No conjunctival lesion, no lesion in the mouth. NECK: Supple, no JVP, no lymphadenopathy. LUNGS: Clear. HEART: S1, S2 regular. No gallop or murmur. ABDOMEN: Soft, nontender, no organomegaly. EXTREMITIES: No edema. The patient does have right leg bigger than the left. She says that is the way it is for years. There is no erythema. There is no cyanosis. NEUROLOGIC: Alert, awake and appropriate. No focal neurologic deficit. Labs Lab Laboratory Tests Test 08/30/19 09:25 08/30/19 10:49 08/30/19 16:42 08/31/19 03:10 White Blood Count 37.0 x10^3/uL (4.0-11.0) 35.2 x10^3/uL (4.0-11.0) Red Blood Count 2.54 x10^6/uL (3.50-5.40) 2.54 x10^6/uL (3.50-5.40) Hemoglobin 8.0 g/dL (12.0-15.5) 8.5 g/dL (12.0-15.5) Hematocrit 25.4 % (36.0-47.0) 25.0 % (36.0-47.0) Mean Corpuscular Volume 100 fL (79-100) 98 fL (79-100) Mean Corpuscular Hemoglobin 32 pg (25-35) 34 pg (25-35) Mean Corpuscular Hemoglobin Concent 32 g/dL (31-37) 34 g/dL (31-37) Red Cell Distribution Width 22.3 % (11.5-14.5) 21.3 % (11.5-14.5) Platelet Count 624 x10^3/uL (140-400) 593 x10^3/uL (140-400) Neutrophils (%) (Auto) 81 % (31-73) 78 % (31-73) Lymphocytes (%) (Auto) 14 % (24-48) 15 % (24-48) Monocytes (%) (Auto) 2 % (0-9) 4 % (0-9) Eosinophils (%) (Auto) 3 % (0-3) 3 % (0-3) Basophils (%) (Auto) 0 % (0-3) 0 % (0-3) Neutrophils # (Auto) 30.1 x10^3/uL (1.8-7.7) 27.3 x10^3/uL (1.8-7.7) Lymphocytes # (Auto) 5.0 x10^3/uL (1.0-4.8) 5.4 x10^3/uL (1.0-4.8) Monocytes # (Auto) 0.8 x10^3/uL (0.0-1.1) 1.3 x10^3/uL (0.0-1.1) Eosinophils # (Auto) 1.0 x10^3/uL (0.0-0.7) 1.1 x10^3/uL (0.0-0.7) Basophils # (Auto) 0.2 x10^3/uL (0.0-0.2) 0.2 x10^3/uL (0.0-0.2) Glucose (Fingerstick) 104 mg/dL (70-99) 160 mg/dL (70-99) Sodium Level 141 mmol/L (136-145) Potassium Level 5.0 mmol/L (3.5-5.1) Chloride Level 106 mmol/L (98-107) Carbon Dioxide Level 28 mmol/L (21-32) Anion Gap 7 (6-14) Blood Urea Nitrogen 23 mg/dL (7-20) Creatinine 1.0 mg/dL (0.6-1.0) Estimated GFR (Cockcroft-Gault) 55.1 Glucose Level 98 mg/dL (70-99) Calcium Level 8.1 mg/dL (8.5-10.1) Test 08/31/19 07:14 Glucose (Fingerstick) 93 mg/dL (70-99) Micro LOOD CULTURE Final GRAM POSITIVE COCCI IN PAIRS AND CHAINS, SUGGESTIVE OF STREP, IN 4 OF 4 BOTTLES, TWO SETS DRAWN. CALLED T0 VITOR LU RN IN ICU AT 8:40 ON 08/28/19 DW MT SENT TO [facility] FOR FURTHER WORKUP. Objective Assessment IMPRESSION: 1. Community-acquired pneumonia. 2. Leukocytosis/leukemoid reaction. 3. Acute kidney injury. 4. Hypoxemia. 5. Parkinson's disease. 6. Hypertension. 7. Hypothyroidism. 8. Strep 4/4, likely strep pneumo Plan Plan of Care cont antibiotics cont zosyn if d/c planned , then on po cefdinir for 1 wk ROSSY BAER MD Aug 31, 2019 08:30
[2019-08-31] MEDS: POLYETHYLENE GLYCOL 3350 17 GM PACKET. PO SCH (09:00)
[2019-08-31] MEDS: buPROPion XL 150 MG TAB.ER.24H. PO SCH (09:07)
[2019-08-31] MEDS: LACTOBACILLUS RHAMNOSUS GG 1 CAPSULE. PO SCH (09:07)
[2019-08-31] MEDS: OMEGA-3 FATTY ACIDS/FISH OIL 1,000 MG CAPSULE. PO SCH (09:07)
[2019-08-31] MEDS: MULTIVITAMIN with MINERAL TABLET. PO SCH (09:07)
[2019-08-31] MEDS: OXYBUTYNIN CHLORIDE 5 MG TABLET PO SCH ×2 (09:07→14:35)
--- NOTE | 2019-08-31 09:15 | NUR ---
LATE NOTE SW met with pt and pt family at bedside yesterday late afternoon. PT/OT/SP recommending acute rehab. Pt does NOT want to go and wants to go home. Pt is agreeable to home health however and would like Daisy Moy RN come to see her. SW notified Farzaneh, she will visit with pt today. Pt having a chest xray today. SW will continue to follow.
--- NOTE | 2019-08-31 10:22 | PDOC ---
PROGRESS NOTES Subjective Subjective feels better. cxr noted. labs noted. she declines acute rehab facility as recommended by PT. she wants to go home with home health willl do 6 min walk. lasix 20 mg iv times 1 Objective Objective Vital Signs Date Time Temp Pulse Resp B/P (MAP) Pulse Ox O2 Delivery O2 Flow Rate FiO2 08/31/19 08:00 Room Air 2.0 08/31/19 07:35 18 08/31/19 07:14 98 08/31/19 07:00 97.9 82 127/43 (71) 97.9 Intake and Output 08/31/19 07:00 Intake Total 2280 ml Output Total 302 ml Balance 1978 ml Intake Oral 840 ml IV Total 720 ml Other 720 ml Output Urine Total 302 ml # Voids 6 Physical Exam Abdomen: Soft Heart: Regular rate Extremities: Other (1 plus edema legs) General: Alert HEENT: Atraumatic Lungs: Other (few crackles right lung base) Neuro: Normal speech Psych/Mental Status: Mental status NL Skin: No rashes Assessment Assessment Problems1. suspected Strep pneumonia. 2. Suspect Streptococcus bacteremia, recent sepsis 3. Acute hypoxic respiratory failure. 4. Myelodysplasia with a leukemoid reaction. 5. Chronic anemia. 7. Parkinson's disease. 8. Hypertension. 9. Hypothyroidism. oropharyngeal dysphagia Medical Problems: (1) NATALIE (acute kidney injury) Status: Acute (2) Anemia Status: Acute (3) Hypokalemia Status: Acute (4) Hypoxia Status: Acute (5) Pneumonia Status: Acute Plan Plan of Care swtich to cefdinir dismiss to home with home health if okay with dr. lou she declines acute rehab facility 6 min walk Comment Review of Relevant I have reviewed the following items deepak (where applicable) has been applied. Labs Laboratory Tests Test 08/29/19 11:32 08/29/19 14:25 08/29/19 16:38 08/29/19 20:26 Glucose (Fingerstick) 126 mg/dL (70-99) 110 mg/dL (70-99) 152 mg/dL (70-99) Special Test - Miscellaneous See separate report Test 08/30/19 07:28 08/30/19 09:25 08/30/19 10:49 08/30/19 16:42 Glucose (Fingerstick) 89 mg/dL (70-99) 104 mg/dL (70-99) 160 mg/dL (70-99) White Blood Count 37.0 x10^3/uL (4.0-11.0) Red Blood Count 2.54 x10^6/uL (3.50-5.40) Hemoglobin 8.0 g/dL (12.0-15.5) Hematocrit 25.4 % (36.0-47.0) Mean Corpuscular Volume 100 fL (79-100) Mean Corpuscular Hemoglobin 32 pg (25-35) Mean Corpuscular Hemoglobin Concent 32 g/dL (31-37) Red Cell Distribution Width 22.3 % (11.5-14.5) Platelet Count 624 x10^3/uL (140-400) Neutrophils (%) (Auto) 81 % (31-73) Lymphocytes (%) (Auto) 14 % (24-48) Monocytes (%) (Auto) 2 % (0-9) Eosinophils (%) (Auto) 3 % (0-3) Basophils (%) (Auto) 0 % (0-3) Neutrophils # (Auto) 30.1 x10^3/uL (1.8-7.7) Lymphocytes # (Auto) 5.0 x10^3/uL (1.0-4.8) Monocytes # (Auto) 0.8 x10^3/uL (0.0-1.1) Eosinophils # (Auto) 1.0 x10^3/uL (0.0-0.7) Basophils # (Auto) 0.2 x10^3/uL (0.0-0.2) Test 08/31/19 03:10 08/31/19 07:14 White Blood Count 35.2 x10^3/uL (4.0-11.0) Red Blood Count 2.54 x10^6/uL (3.50-5.40) Hemoglobin 8.5 g/dL (12.0-15.5) Hematocrit 25.0 % (36.0-47.0) Mean Corpuscular Volume 98 fL (79-100) Mean Corpuscular Hemoglobin 34 pg (25-35) Mean Corpuscular Hemoglobin Concent 34 g/dL (31-37) Red Cell Distribution Width 21.3 % (11.5-14.5) Platelet Count 593 x10^3/uL (140-400) Neutrophils (%) (Auto) 78 % (31-73) Lymphocytes (%) (Auto) 15 % (24-48) Monocytes (%) (Auto) 4 % (0-9) Eosinophils (%) (Auto) 3 % (0-3) Basophils (%) (Auto) 0 % (0-3) Neutrophils # (Auto) 27.3 x10^3/uL (1.8-7.7) Lymphocytes # (Auto) 5.4 x10^3/uL (1.0-4.8) Monocytes # (Auto) 1.3 x10^3/uL (0.0-1.1) Eosinophils # (Auto) 1.1 x10^3/uL (0.0-0.7) Basophils # (Auto) 0.2 x10^3/uL (0.0-0.2) Sodium Level 141 mmol/L (136-145) Potassium Level 5.0 mmol/L (3.5-5.1) Chloride Level 106 mmol/L (98-107) Carbon Dioxide Level 28 mmol/L (21-32) Anion Gap 7 (6-14) Blood Urea Nitrogen 23 mg/dL (7-20) Creatinine 1.0 mg/dL (0.6-1.0) Estimated GFR (Cockcroft-Gault) 55.1 Glucose Level 98 mg/dL (70-99) Calcium Level 8.1 mg/dL (8.5-10.1) Glucose (Fingerstick) 93 mg/dL (70-99) Laboratory Tests Test 08/30/19 10:49 08/30/19 16:42 08/31/19 03:10 08/31/19 07:14 Glucose (Fingerstick) 104 mg/dL (70-99) 160 mg/dL (70-99) 93 mg/dL (70-99) White Blood Count 35.2 x10^3/uL (4.0-11.0) Red Blood Count 2.54 x10^6/uL (3.50-5.40) Hemoglobin 8.5 g/dL (12.0-15.5) Hematocrit 25.0 % (36.0-47.0) Mean Corpuscular Volume 98 fL (79-100) Mean Corpuscular Hemoglobin 34 pg (25-35) Mean Corpuscular Hemoglobin Concent 34 g/dL (31-37) Red Cell Distribution Width 21.3 % (11.5-14.5) Platelet Count 593 x10^3/uL (140-400) Neutrophils (%) (Auto) 78 % (31-73) Lymphocytes (%) (Auto) 15 % (24-48) Monocytes (%) (Auto) 4 % (0-9) Eosinophils (%) (Auto) 3 % (0-3) Basophils (%) (Auto) 0 % (0-3) Neutrophils # (Auto) 27.3 x10^3/uL (1.8-7.7) Lymphocytes # (Auto) 5.4 x10^3/uL (1.0-4.8) Monocytes # (Auto) 1.3 x10^3/uL (0.0-1.1) Eosinophils # (Auto) 1.1 x10^3/uL (0.0-0.7) Basophils # (Auto) 0.2 x10^3/uL (0.0-0.2) Sodium Level 141 mmol/L (136-145) Potassium Level 5.0 mmol/L (3.5-5.1) Chloride Level 106 mmol/L (98-107) Carbon Dioxide Level 28 mmol/L (21-32) Anion Gap 7 (6-14) Blood Urea Nitrogen 23 mg/dL (7-20) Creatinine 1.0 mg/dL (0.6-1.0) Estimated GFR (Cockcroft-Gault) 55.1 Glucose Level 98 mg/dL (70-99) Calcium Level 8.1 mg/dL (8.5-10.1) Microbiology 08/28/19 - Final, Resulted 08/28/19 - Final, Resulted 08/28/19 - Final, Resulted 08/28/19 - Preliminary, Resulted 08/28/19 - Preliminary, Resulted 08/28/19 - Preliminary, Resulted 08/28/19 Gram Stain Evaluation - Final, Resulted 08/28/19 Sputum Culture, Resulted Pending 08/27/19 Blood Culture - Preliminary, Resulted 08/27/19 Blood Culture Result 1 (CHELY) - Preliminary, Resulted Medications Current Medications Methylprednisolone Sodium Succinate (SOLU-Medrol 125MG VIAL) 125 mg 1X ONCE IV Last administered on 08/27/19at 17:04; Start 08/27/19 at 16:45; Stop 08/27/19 at 16:46; Status DC Albuterol/ Ipratropium (Duoneb) 3 ml 1X ONCE NEB Last administered on 08/27/19at 17:58; Start 08/27/19 at 16:45; Stop 08/27/19 at 16:46; Status DC Piperacillin Sod/ Tazobactam Sod 3.375 gm/Sodium Chloride 50 ml @ 100 mls/hr 1X STAT IV Last administered on 08/27/19at 18:32; Start 08/27/19 at 17:17; Stop 08/27/19 at 17:46; Status DC Vancomycin HCl 1.5 gm/Sodium Chloride 500 ml @ 250 mls/hr 1X STAT IV Last administered on 08/27/19at 18:32; Start 08/27/19 at 17:17; Stop 08/27/19 at 19:16; Status DC Sodium Chloride 1,000 ml @ 1,000 mls/hr 1X STAT IV ; Start 08/27/19 at 17:17; Stop 08/27/19 at 17:36; Status DC Sodium Chloride 1,000 ml @ 1,000 mls/hr 1X STAT IV Last administered on 08/27/19at 17:40; Start 08/27/19 at 17:17; Stop 08/27/19 at 18:16; Status DC Potassium Chloride (Klor-Con) 40 meq 1X STAT PO ; Start 08/27/19 at 17:51; Stop 08/27/19 at 17:54; Status DC Ondansetron HCl (Zofran) 4 mg PRN Q8HRS PRN IV NAUSEA/VOMITING; Start 08/27/19 at 18:30; Stop 08/28/19 at 18:29; Status DC Acetaminophen (Tylenol) 650 mg PRN Q4HRS PRN PO FEVER; Start 08/27/19 at 18:30; Stop 08/28/19 at 10:27; Status DC Albuterol/ Ipratropium (Duoneb) 3 ml RTQID NEB Last administered on 08/28/19at 15:46; Start 08/27/19 at 20:00; Stop 08/28/19 at 19:59; Status DC Potassium Chloride/Dextrose/ Sod Cl 1,000 ml @ 75 mls/hr [id number] IV Last administered on 08/28/19at 10:10; Start 08/27/19 at 21:00; Stop 08/28/19 at 10:25; Status DC Bupropion HCl (Wellbutrin Xl) 150 mg DAILY PO Last administered on 08/31/19at 09:07; Start 08/28/19 at 09:00 Acetaminophen/ Hydrocodone Bitart (Lortab 7.5/325) 0.5 tab PRN Q4HRS PRN PO MODERATE PAIN 4-6 Last administered on 08/29/19at 17:45; Start 08/28/19 at 00:00 Albuterol Sulfate (Ventolin Neb Soln) 2.5 mg PRN QID PRN NEB SHORTNESS OF BREAT H Last administered on 08/28/19at 00:28; Start 08/28/19 at 00:30; Stop 08/28/19 at 10:25; Status DC Levothyroxine Sodium (Synthroid) 175 mcg DAILYAC PO Last administered on 08/31/19at 07:31; Start 08/28/19 at 07:30 Fish Oil (Fish Oil) 1 mg BID PO Last administered on 08/28/19at 20:42; Start 08/28/19 at 09:00; Stop 08/29/19 at 09:29; Status DC Oxybutynin Chloride (Ditropan) 5 mg TID PO ; Start 08/28/19 at 09:00; Stop 08/28/19 at 01:05; Status DC Polyethylene Glycol (miraLAX PACKET) 17 gm DAILY PO Last administered on 08/30/19at 07:59; Start 08/28/19 at 09:00 Ropinirole HCl (Requip) 3 mg 5XDAY PO ; Start 08/28/19 at 06:00; Stop 08/28/19 at 01:10; Status DC Non-Formulary Medication (Carbidopa/ Levodopa (Sinemet Cr 50-200 Tablet)) 1 each TID PO ; Start 08/28/19 at 09:00; Stop 08/28/19 at 00:19; Status DC Multivitamins (Thera M Plus) 1 tab DAILY PO Last administered on 08/31/19at 09:07; Start 08/28/19 at 09:00 Non-Formulary Medication (Safinamide Mesylate (Xadago)) 50 mg DAILY PO ; Start 08/28/19 at 09:00; Stop 08/28/19 at 08:59; Status DC Carbidopa/Levodopa (Sinemet Cr) 2 tab.sa 5XDAY PO Last administered on 08/29/19at 16:41; Start 08/28/19 at 06:00; Stop 08/29/19 at 17:34; Status DC Oxybutynin Chloride (Ditropan) 5 mg TID PO Last administered on 08/31/19at 09:07; Start 08/28/19 at 01:15 Ropinirole HCl (Requip) 3 mg 5XDAY PO Last administered on 08/29/19at 16:42; Start 08/28/19 at 01:15; Stop 08/29/19 at 17:29; Status DC Acetaminophen/ Hydrocodone Bitart (Lortab 7.5/325) 1 tab PRN Q4HRS PRN PO SEVERE PAIN 7-10 Last administered on 08/31/19at 07:35; Start 08/28/19 at 02:00 Magnesium Hydroxide (Milk Of Magnesia) 2,400 mg PRN DAILY PRN PO CONSTIPATION 1ST CHOICE; Start 08/28/19 at 03:30 Piperacillin Sod/ Tazobactam Sod (Zosyn Per Pharmacy) 1 each PRN DAILY PRN MC SEE COMMENTS; Start 08/28/19 at 06:45 Vancomycin HCl (Vanco Per Pharmacy) 1 each PRN DAILY PRN MC SEE COMMENTS Last administered on 08/28/19at 06:52; Start 08/28/19 at 06:45; Stop 08/28/19 at 07:43; Status DC Piperacillin Sod/ Tazobactam Sod 3.375 gm/Sodium Chloride 50 ml @ 100 mls/hr Q6HRS IV Last administered on 08/31/19at 05:56; Start 08/28/19 at 07:00 Vancomycin HCl 1.5 gm/Sodium Chloride 500 ml @ 250 mls/hr Q24H IV Last administered on 08/28/19at 16:52; Start 08/28/19 at 18:00; Stop 08/29/19 at 09:06; Status DC Vancomycin HCl (Vancomycin Trough Level) 1 each 1X ONCE MC ; Start 08/29/19 at 17:30; Stop 08/29/19 at 17:31; Status Cancel Azithromycin 500 mg/Sodium Chloride 250 ml @ 250 mls/hr Q24H IV Last administered on 08/31/19at 07:30; Start 08/28/19 at 08:00 Albuterol Sulfate (Ventolin Neb Soln) 2.5 mg RTQID NEB Last administered on 08/31/19at 07:14; Start 08/28/19 at 12:00 Enoxaparin Sodium (Lovenox 40mg Syringe) 40 mg Q24H SQ ; Start 08/28/19 at 11:00; Stop 08/28/19 at 10:38; Status DC Potassium Chloride (Klor-Con) 20 meq 1X ONCE PO Last administered on 08/28/19at 11:26; Start 08/28/19 at 11:00; Stop 08/28/19 at 11:01; Status DC Lactulose (Lactulose) 20 gm Q2H PO Last administered on 08/28/19at 11:53; Start 08/28/19 at 12:00; Stop 08/28/19 at 14:01; Status DC Acetaminophen (Tylenol) 650 mg PRN Q6HRS PRN PO MILD PAIN / TEMP; Start 08/28/19 at 10:30 Vancomycin HCl (Vanco Per Pharmacy) 1 each PRN DAILY PRN MC SEE COMMENTS; Start 08/28/19 at 10:45; Status Cancel Insulin Human Lispro (HumaLOG) 0-6 UNITS TIDWMEALS SQ Last administered on 08/28/19at 16:54; Start 08/28/19 at 12:00 Potassium Chloride/Dextrose/ Sod Cl 1,000 ml @ 60 mls/hr [id number] IV Last administered on 08/30/19at 18:01; Start 08/28/19 at 10:45 Enoxaparin Sodium (Lovenox 40mg Syringe) 40 mg Q24H SQ ; Start 08/28/19 at 21:00; Stop 08/28/19 at 10:50; Status DC Pantoprazole Sodium (Protonix) 40 mg DAILYAC PO Last administered on 08/31/19at 07:32; Start 08/28/19 at 12:15 Polyethylene Glycol (miraLAX PACKET) 17 gm PRN DAILY PRN PO CONSTIPATION; Start 1/7/20 at 12:15 Fish Oil (Fish Oil) 1,000 mg DAILY PO Last administered on 08/31/19 09:07; Start 08/29/19 at 09:30 Magnesium Citrate (Citroma) 296 ml 1X ONCE PO Last administered on 08/29/19at 11:18; Start 08/29/19 at 10:15; Stop 08/29/19 at 10:16; Status DC Bisacodyl (Dulcolax Tab) 10 mg 1X ONCE PO Last administered on 08/29/19at 11:18; Start 08/29/19 at 11:00; Stop 08/29/19 at 11:02; Status DC Lactobacillus Rhamnosus (Culturelle) 1 cap BID PO Last administered on 08/31/19at 09:07; Start 08/29/19 at 21:00 Ibuprofen (Motrin) 200 mg PRN Q6HRS PRN PO INFLAMMATION Last administered on 08/31/19at 02:15; Start 08/29/19 at 16:15 Trazodone HCl (Desyrel) 50 mg PRN QHS PRN PO INSOMNIA Last administered on 08/30/19at 20:29; Start 08/29/19 at 16:15 Ropinirole HCl (Requip) 3 mg 0600,0900,1200,1600 PO Last administered on 08/31/19at 09:08; Start 08/30/19 at 06:00 Ropinirole HCl (Requip) 3 mg Q24H PO Last administered on 08/30/19at 19:59; S tart 08/29/19 at 20:00 Carbidopa/Levodopa (Sinemet Cr) 2 tab.sa 0600,0900,1200,1600 PO Last administered on 08/31/19at 09:24; Start 08/30/19 at 06:00 Carbidopa/Levodopa (Sinemet Cr) 2 tab.sa Q24H PO Last administered on 08/30/19at 20:00; Start 08/29/19 at 20:00 Active Scripts Active Requip (Ropinirole Hcl) 1 Mg Tablet 3 Mg PO QID@06,11,16,21 Miralax (Polyethylene Glycol 3350) 17 Gm Powd.pack 17 Gm PO DAILY Diazepam 5 Mg Tablet 5 Mg PO PRN BID PRN Reported Losartan-Hctz 50-12.5 Mg Tab (Losartan/Hydrochlorothiazide) 1 Each Tablet 1 Tab PO DAILY Xadago (Safinamide Mesylate) 50 Mg Tablet 50 Mg PO DAILY Levothyroxine Sodium 175 Mcg Tablet 175 Mcg PO DAILYAC Hydrocodone-Apap 7.5-325 (Hydrocodone Bit/Acetaminophen) 1 Each Tablet 0.5-1 Tab PO PRN Q4-6HRS PRN Proair Hfa Inhaler (Albuterol Sulfate) 8.5 Gm Hfa.aer.ad 8.5 Gm IH PRN Duoneb 0.5 Mg-3 Mg/3 Ml Soln (Ipratropium/Albuterol Sulfate) 3 Ml Ampul.neb 3 Ml IH PRN Bupropion Xl (Bupropion Hcl) 150 Mg Tab.er.24h 150 Mg PO DAILY Oxybutynin Chloride 5 Mg Tablet 5 Mg PO TID Sinemet Cr 50-200 Tablet (Carbidopa/Levodopa) 1 Each Tablet.er 1 Each PO TID Daily Vitamin (Multivitamin) 1 Each Tablet 1 Each PO DAILY Fish Oil 1,000 Mg Capsule (Fay-3 Fatty Acids/Fish Oil) 1 Each Capsule 1 Each PO BID Vitals/I & O Vital Sign - Last 24 Hours 08/30/19 08/30/19 08/30/19 08/30/19 11:00 11:36 11:42 12:42 Temp 98.0 98.0 Pulse 73 Resp 18 20 18 B/P (MAP) 181/63 (102) Pulse Ox 96 93 O2 Delivery Nasal Cannula Nasal Cannula Room Air O2 Flow Rate 2.0 2.0 08/30/19 08/30/19 08/30/19 08/30/19 15:00 15:22 16:35 17:35 Temp 97.9 97.9 Pulse 62 Resp 18 18 18 B/P (MAP) 114/70 (85) Pulse Ox 90 97 O2 Delivery Nasal Cannula Nasal Cannula Room Air O2 Flow Rate 2.0 2.0 08/30/19 08/30/19 08/30/19 08/30/19 19:00 19:35 20:19 20:29 Temp 98.3 98.3 Pulse 93 Resp 20 20 B/P (MAP) 128/41 (70) Pulse Ox 93 98 O2 Delivery Room Air Room Air Room Air Room Air 08/30/19 08/30/19 08/31/19 08/31/19 21:29 23:00 03:00 07:00 Temp 98.0 97.9 97.9 98.0 97.9 97.9 Pulse 91 84 82 Resp 20 20 20 18 B/P (MAP) 129/48 (75) 136/56 (82) 127/43 (71) Pulse Ox 94 92 91 O2 Delivery Room Air Nasal Cannula Room Air Room Air O2 Flow Rate 2.0 08/31/19 08/31/19 08/31/19 07:14 07:35 08:00 Resp 18 Pulse Ox 98 O2 Delivery Room Air Room Air Room Air O2 Flow Rate 2.0 Intake and Output 08/30/19 08/30/19 08/31/19 15:00 23:00 07:00 Intake Total 120 ml 240 ml 1920 ml Output Total 2 ml 300 ml Balance 120 ml 238 ml 1620 ml YVETTE MAZARIEGOS MD Aug 31, 2019 10:22
[2019-08-31] MEDS ORDERED: FUROSEMIDE 20 MG/2 ML VIAL. IVP ONE (10:30)
[2019-08-31] MEDS ORDERED: CEFD300C PO (10:32)
[2019-08-31] MEDS ORDERED: CARB1TAB43 PO ×2 (10:32)
[2019-08-31] MEDS ORDERED: LACT1CAP19 PO (10:32)
[2019-08-31] MEDS ORDERED: ROPI1TAB2 PO (10:32)
--- NOTE | 2019-08-31 10:34 | SNU/HH DC ---
DISCHARGE WITH HOME HEALTH DISCHARGE INFORMATION: Discharge Date: Aug 31, 2019 Final Diagnosis: Problems streptococcal pneumonia with bacteremia Medical Problems: (1) NATALIE (acute kidney injury) Status: Acute (2) Anemia Status: Acute (3) Hypokalemia Status: Acute (4) Hypoxia Status: Acute (5) Pneumonia Status: Acute Condition on Discharge: Stable CODE STATUS: Code Status: Full HOME HEALTH: Face to Face: I certify this patient is under my care and that I, or a nurse practitioner or physician's metal forger's assistant working with me, had a face to face encounter that meets the physician face to face encounter requirements with this patient on [08/31/19]. RN For Eval/Treatment: Yes Physical Therapy For: Evalulation/Treatment Occupational Therapy For: Evaluation/Treatment Pt Meets Homebound Status: Limited distance walking POST DISCHARGE ORDERS: Activity Instructions for Disc: Activity as tolerated Weight Bearing Status after Di: As tolerated Bathing Instructions: Shower-keep dressing dry Wound/Incision Care: Ice to area for comfort, Keep wound/cast CDI DC TO SNF OTHER: May remove dressings 3 days after surgery. CHECKS AFTER DISCHARGE: Checks after discharge: Check blood press - daily, Check your Temp as needed, Weigh Yourself Daily FOLLOW-UP: PCP to follow Home Health: dr. mazariegos Follow up with: dr. mazariegos next week CERTIFICATION STATEMENT: Certification Statement: Certification Statement: Based on the above finding, I certify that this patient is confined to the home and needs intermittent care home care, physical therapy and/or speech therapy, or continues to need occupational therapy.~ This patient is under my care, and I have initiated the establishment of the plan of care.~ This patient will be followed by myself or a community physician who will periodically review the plan of care. Home Meds Active Scripts Cefdinir (CEFDINIR) 300 Mg Capsule, 300 MG PO BID for pneumonia, #14 CAP 0 Refills Prov:YVETTE MAZARIEGOS MD 08/31/19 Lactobacillus Rhamnosus Gg (CULTURELLE) 1 Each Cap.sprink, 1 CAP PO BID for pr obiotic, #14 CAP Prov:YVETTE MAZARIEGOS MD 08/31/19 Carbidopa/Levodopa (CARBIDOPA-LEVO ER 25-100 TAB) 1 Each Tablet.er, 2 TAB.SA PO 5XDAY for parkinsons, #60 TAB.SR Prov:YVETTE MAZARIEGOS MD 08/31/19 Ropinirole Hcl (ROPINIROLE HCL) 1 Mg Tablet, 3 MG PO 5x for parkinsons, #60 TAB Prov:YVETTE MAZARIEGOS MD 08/31/19 Carbidopa/Levodopa (CARBIDOPA-LEVO ER 25-100 TAB) 1 Each Tablet.er, 2 TAB.SA PO 0600,0900,1200,1600 for parkinsons, #60 TAB.SR Prov:YVETTE MAZARIEGOS MD 08/31/19 Polyethylene Glycol 3350 (MIRALAX) 17 Gm Powd.pack, 17 GM PO DAILY, #30 Prov:YVETTE MAZARIEGOS MD 01/16/16 Reported Medications Levothyroxine Sodium (LEVOTHYROXINE SODIUM) 175 Mcg Tablet, 175 MCG PO DAILYAC for THYROID SUPPLEMENT, #30 TAB 0 Refills 10/31/17 Hydrocodone Bit/Acetaminophen (HYDROCODONE-APAP 7.5-325 ) 1 Each Tablet, 0.5- 1 TAB PO PRN Q4-6HRS PRN for PAIN, TAB 0 Refills 10/31/17 Albuterol Sulfate (PROAIR HFA INHALER) 8.5 Gm Hfa.aer.ad, 8.5 GM IH PRN for SHORTNESS OF BREATH 12/07/13 Ipratropium/Albuterol Sulfate (DUONEB 0.5 MG-3 MG/3 ML SOLN) 3 Ml Ampul.neb, 3 ML IH PRN for SHORTNESS OF BREATH 12/07/13 Bupropion Hcl (BUPROPION XL) 150 Mg Tab.er.24h, 150 MG PO DAILY 12/07/13 Oxybutynin Chloride (OXYBUTYNIN CHLORIDE) 5 Mg Tablet, 5 MG PO TID 12/07/13 Multivitamin (DAILY VITAMIN) 1 Each Tablet, 1 EACH PO DAILY 12/07/13 [place]-3 Fatty Acids/Fish Oil (FISH OIL 1,000 MG CAPSULE) 1 Each Capsule, 1 EACH PO BID 12/07/13 Discontinued Reported Medications Losartan/Hydrochlorothiazide (LOSARTAN-HCTZ 50-12.5 MG TAB) 1 Each Tablet, 1 TAB PO DAILY for Hypertension, #30 TAB 5 Refills 08/28/19 Safinamide Mesylate (Xadago) 50 Mg Tablet, 50 MG PO DAILY for RX, TAB 12/27/18 Carbidopa/Levodopa (SINEMET CR 50-200 TABLET) 1 Each Tablet.er, 1 EACH PO TID 12/07/13 Lisinopril (LISINOPRIL) 20 Mg Tablet, 1 TAB PO DAILY for HTN, #30 TAB 5 Refills 12/27/18 Discontinued Scripts Ropinirole Hcl (REQUIP) 1 Mg Tablet, 3 MG PO QID@06,11,16,21, #120 Prov:YVETTE MAZARIEGOS MD 01/16/16 Diazepam (DIAZEPAM) 5 Mg Tablet, 5 MG PO PRN BID PRN for ANXIETY, #30 Prov:YVETTE MAZARIEGOS MD 01/16/16 YVETTE MAZARIEGOS MD Aug 31, 2019 10:34
--- NOTE | 2019-08-31 10:40 | PDOC ---
Subjective: Subjective: Trouble breathing when moving around, but no longer on oxygen. Doesn't like dysphagia diet. Objective: Objective: Declined Miralax. Vital Signs: Vital Signs Date Time Temp Pulse Resp B/P (MAP) Pulse Ox O2 Delivery O2 Flow Rate FiO2 08/31/19 08:00 Room Air 2.0 08/31/19 07:35 18 08/31/19 07:14 98 08/31/19 07:00 97.9 82 127/43 (71) 97.9 Labs: Laboratory Tests Test 08/30/19 10:49 08/30/19 16:42 08/31/19 03:10 08/31/19 07:14 Glucose (Fingerstick) 104 mg/dL 160 mg/dL 93 mg/dL White Blood Count 35.2 x10^3/uL Red Blood Count 2.54 x10^6/uL Hemoglobin 8.5 g/dL Hematocrit 25.0 % Mean Corpuscular Volume 98 fL Mean Corpuscular Hemoglobin 34 pg Mean Corpuscular Hemoglobin Concent 34 g/dL Red Cell Distribution Width 21.3 % Platelet Count 593 x10^3/uL Neutrophils (%) (Auto) 78 % Lymphocytes (%) (Auto) 15 % Monocytes (%) (Auto) 4 % Eosinophils (%) (Auto) 3 % Basophils (%) (Auto) 0 % Neutrophils # (Auto) 27.3 x10^3/uL Lymphocytes # (Auto) 5.4 x10^3/uL Monocytes # (Auto) 1.3 x10^3/uL Eosinophils # (Auto) 1.1 x10^3/uL Basophils # (Auto) 0.2 x10^3/uL Sodium Level 141 mmol/L Potassium Level 5.0 mmol/L Chloride Level 106 mmol/L Carbon Dioxide Level 28 mmol/L Anion Gap 7 Blood Urea Nitrogen 23 mg/dL Creatinine 1.0 mg/dL Estimated GFR (Cockcroft-Gault) 55.1 Glucose Level 98 mg/dL Calcium Level 8.1 mg/dL GRAM STAIN WHITE BLOOD CELLS Final None seen GRAM STAIN EPITHELIAL CELLS Final None seen GRAM STAIN RESULT 1 Final No organisms seen GRAM STAIN RESULT 2 Preliminary Test not performed GRAM STAIN RESULT 3 Preliminary Test not performed GRAM STAIN RESULT 4 Preliminary Test not performed GRAM STAIN EVALUATION Final Comment This specimen is of good quality and is acceptable for routine bacterial culture. BLD CULT RESULT 1 Preliminary Streptococcus species Imaging: CXR 08/31 Impression: Mild congestive heart failure. Decreased right upper lung field infiltrate. Increased right basilar pleural effusion and adjacent atelectasis or infiltrate. Small left effusion again seen. PE: GEN: NAD - up in chair LUNGS: clear anteriorly HEART: RRR ABD: NABS, S/ND/NT NEURO/PSYCH: A & O 3 A/P: CAP, strep bacteremia MDS, leukemoid reaction Dysphagia - diet per GAMING FLOOR SUPERVISOR, on PPI Constipation - controlled -- Continue same per GI, outpt 'scopes. Hemodynamically unstable?: No Is patient in severe pain?: No Is NPO status required?: No EDER KEATING Aug 31, 2019 10:40
--- NOTE | 2019-08-31 10:41 | PDOC ---
Provider Note Provider Note discharge summary dictated # [id number] Hemodynamically unstable?: No Is patient in severe pain?: No Is NPO status required?: No YVETTE MAZARIEGOS MD Aug 31, 2019 10:41
[2019-08-31 11:00] VITALS: BP 158/72
--- NOTE | 2019-08-31 12:06 | DS ---
DATE OF DISCHARGE: 08/31/2019 CONSULTANTS: Include Dr. Carlitos Archuleta, Dr. Bourgeois, Dr. Carrero, Dr. Olson, and Dr. Lugo. FINAL DIAGNOSES: 1. Streptococcus pneumoniae or pneumococcal pneumonia with bacteremia and sepsis. 2. Acute hypoxic respiratory failure secondary to pneumonia. 3. Myelodysplastic syndrome with a leukemoid reaction. 4. Anemia of chronic disease secondary to myelodysplasia. 5. Parkinson's disease. 6. Hypertension. 7. Hypothyroidism. 8. Oropharyngeal dysphagia, resolved. HOSPITAL COURSE: The patient is a 69-year-old white female with history of Parkinson disease and mild dysplasia with a history of hypertension, hypothyroidism, anemia of chronic disease, mild leukocytosis and mild dysplasia, admitted to [facility] through the Emergency Room on 08/27/2019 with 1-week history of cough and developed some fever and chills who has couple of days prior to admission with shortness of breath. She felt she had a decreased appetite for 1 week. In the Emergency Room, the influenza screen at the [facility] was negative. White count was 52,000 with a baseline of 14,000, hemoglobin 6.5 with a baseline in the 8. She received 1 unit of packed red blood cells. She was started on IV vancomycin, IV Zosyn. Blood and sputum cultures were ordered. Blood cultures were positive for gram-positive cocci in pairs and chains consistent with Streptococcus pneumonia. She was seen in consultation by Dr. Carlitos Archuleta for Infectious Disease, Dr. Olson for Hematology, Dr. Carrero and Dr. Bourgeois for Pulmonary. She was in the Intensive Care Unit on oxygen and antibiotics, eventually transferred to the medical floor. She received physical therapy and the physical therapist recommended that she go to an acute care facility and she has declined that today, stating she wants home health with home physical therapy. She had oropharyngeal dysphagia, which resolved. She is presently on ADA diet, seen by the speech therapist. White count improved at 35,000 today. Hemoglobin has been stable at around 8 and she did participate in some physical therapy and also had speech therapy and occupational therapy ordered. It is anticipated that she will be seen by Dr. Bourgeois today who recommended to go on cefdinir for 7 days. She will be dismissed to home later today with home health if it is okay with Dr. Carrero and show the 6-minute walk to see if she needs portable oxygen with walking. She will be dismissed on levothyroxine 175 mcg every day and also be dismissed on cefdinir 300 mg b.i.d. for 7 days and also acidophilus one b.i.d. for 7 days. Multiple vitamin every day, DuoNeb nebulized treatments q.i.d., Rowe 7.5 mg one every 4 hours p.r.n., fish oil 1 g daily, oxybutynin 5 mg t.i.d., Requip 3 mg 5 times a day, Sinemet 50-200 five times a day, bupropion XL 150 mg every day and she supposed to be on Aranesp injections monthly for Dr. Evie Solis who is her clinical coder. She was told to make an appointment to see Dr. Mazariegos in the office next week. She will be dismissed later today if it is okay with Dr. Carrero with home health when home physical therapy and occupational therapy will do a 6-minute walk to see if she needs oxygen at home. Once again, she declined going to a physical rehab facility. YVETTE MAZARIEGOS MD DR: TYREL/maurilio JOB#: [id number] / [id number]
--- NOTE | 2019-08-31 12:17 | PDOC ---
PULMONARY PROGRESS NOTES Subjective less soa/ less cough Vitals Vital Signs Date Time Temp Pulse Resp B/P (MAP) Pulse Ox O2 Delivery O2 Flow Rate FiO2 08/31/19 11:39 93 Nasal Cannula 2.0 08/31/19 07:35 18 08/31/19 07:00 97.9 82 127/43 (71) 97.9 General: Alert, No acute distress Lungs: Other (few rhonchi) Cardiovascular: S1 Abdomen: Soft Extremities: Other (1=edema) Skin: Warm Labs Laboratory Tests Test 08/29/19 14:25 08/29/19 16:38 08/29/19 20:26 08/30/19 07:28 Special Test - Miscellaneous See separate report Glucose (Fingerstick) 110 mg/dL (70-99) 152 mg/dL (70-99) 89 mg/dL (70-99) Test 08/30/19 09:25 08/30/19 10:49 08/30/19 16:42 08/31/19 03:10 White Blood Count 37.0 x10^3/uL (4.0-11.0) 35.2 x10^3/uL (4.0-11.0) Red Blood Count 2.54 x10^6/uL (3.50-5.40) 2.54 x10^6/uL (3.50-5.40) Hemoglobin 8.0 g/dL (12.0-15.5) 8.5 g/dL (12.0-15.5) Hematocrit 25.4 % (36.0-47.0) 25.0 % (36.0-47.0) Mean Corpuscular Volume 100 fL (79-100) 98 fL (79-100) Mean Corpuscular Hemoglobin 32 pg (25-35) 34 pg (25-35) Mean Corpuscular Hemoglobin Concent 32 g/dL (31-37) 34 g/dL (31-37) Red Cell Distribution Width 22.3 % (11.5-14.5) 21.3 % (11.5-14.5) Platelet Count 624 x10^3/uL (140-400) 593 x10^3/uL (140-400) Neutrophils (%) (Auto) 81 % (31-73) 78 % (31-73) Lymphocytes (%) (Auto) 14 % (24-48) 15 % (24-48) Monocytes (%) (Auto) 2 % (0-9) 4 % (0-9) Eosinophils (%) (Auto) 3 % (0-3) 3 % (0-3) Basophils (%) (Auto) 0 % (0-3) 0 % (0-3) Neutrophils # (Auto) 30.1 x10^3/uL (1.8-7.7) 27.3 x10^3/uL (1.8-7.7) Lymphocytes # (Auto) 5.0 x10^3/uL (1.0-4.8) 5.4 x10^3/uL (1.0-4.8) Monocytes # (Auto) 0.8 x10^3/uL (0.0-1.1) 1.3 x10^3/uL (0.0-1.1) Eosinophils # (Auto) 1.0 x10^3/uL (0.0-0.7) 1.1 x10^3/uL (0.0-0.7) Basophils # (Auto) 0.2 x10^3/uL (0.0-0.2) 0.2 x10^3/uL (0.0-0.2) Glucose (Fingerstick) 104 mg/dL (70-99) 160 mg/dL (70-99) Sodium Level 141 mmol/L (136-145) Potassium Level 5.0 mmol/L (3.5-5.1) Chloride Level 106 mmol/L (98-107) Carbon Dioxide Level 28 mmol/L (21-32) Anion Gap 7 (6-14) Blood Urea Nitrogen 23 mg/dL (7-20) Creatinine 1.0 mg/dL (0.6-1.0) Estimated GFR (Cockcroft-Gault) 55.1 Glucose Level 98 mg/dL (70-99) Calcium Level 8.1 mg/dL (8.5-10.1) Test 08/31/19 07:14 Glucose (Fingerstick) 93 mg/dL (70-99) Laboratory Tests Test 08/30/19 16:42 08/31/19 03:10 08/31/19 07:14 Glucose (Fingerstick) 160 mg/dL (70-99) 93 mg/dL (70-99) White Blood Count 35.2 x10^3/uL (4.0-11.0) Red Blood Count 2.54 x10^6/uL (3.50-5.40) Hemoglobin 8.5 g/dL (12.0-15.5) Hematocrit 25.0 % (36.0-47.0) Mean Corpuscular Volume 98 fL (79-100) Mean Corpuscular Hemoglobin 34 pg (25-35) Mean Corpuscular Hemoglobin Concent 34 g/dL (31-37) Red Cell Distribution Width 21.3 % (11.5-14.5) Platelet Count 593 x10^3/uL (140-400) Neutrophils (%) (Auto) 78 % (31-73) Lymphocytes (%) (Auto) 15 % (24-48) Monocytes (%) (Auto) 4 % (0-9) Eosinophils (%) (Auto) 3 % (0-3) Basophils (%) (Auto) 0 % (0-3) Neutrophils # (Auto) 27.3 x10^3/uL (1.8-7.7) Lymphocytes # (Auto) 5.4 x10^3/uL (1.0-4.8) Monocytes # (Auto) 1.3 x10^3/uL (0.0-1.1) Eosinophils # (Auto) 1.1 x10^3/uL (0.0-0.7) Basophils # (Auto) 0.2 x10^3/uL (0.0-0.2) Sodium Level 141 mmol/L (136-145) Potassium Level 5.0 mmol/L (3.5-5.1) Chloride Level 106 mmol/L (98-107) Carbon Dioxide Level 28 mmol/L (21-32) Anion Gap 7 (6-14) Blood Urea Nitrogen 23 mg/dL (7-20) Creatinine 1.0 mg/dL (0.6-1.0) Estimated GFR (Cockcroft-Gault) 55.1 Glucose Level 98 mg/dL (70-99) Calcium Level 8.1 mg/dL (8.5-10.1) Medications Active Scripts Medications Dose Route/Sig Max Daily Dose Days Date Category Losartan-Hctz 50-12.5 Mg Tab (Losartan/Hydrochlorothiazide) 1 Each Tablet 1 Tab PO DAILY 08/28/19 Reported Xadago (Safinamide Mesylate) 50 Mg Tablet 50 Mg PO DAILY 12/27/18 Reported Levothyroxine Sodium 175 Mcg Tablet 175 Mcg PO DAILYAC 10/31/17 Reported Hydrocodone-Apap 7.5-325 (Hydrocodone Bit/Acetaminophen) 1 Each Tablet 0.5-1 Tab PO PRN Q4-6HRS PRN 10/31/17 Reported Requip (Ropinirole Hcl) 1 Mg Tablet 3 Mg PO QID@06,11,16,21 01/16/16 Rx Miralax (Polyethylene Glycol 3350) 17 Gm Powd.pack 17 Gm PO DAILY 01/16/16 Rx Diazepam 5 Mg Tablet 5 Mg PO PRN BID PRN 01/16/16 Rx Proair Hfa Inhaler (Albuterol Sulfate) 8.5 Gm Hfa.aer.ad 8.5 Gm IH PRN 12/07/13 Reported Duoneb 0.5 Mg-3 Mg/3 Ml Soln (Ipratropium/Albuterol Sulfate) 3 Ml Ampul.neb 3 Ml IH PRN 12/07/13 Reported Bupropion Xl (Bupropion Hcl) 150 Mg Tab.er.24h 150 Mg PO DAILY 12/07/13 Reported Oxybutynin Chloride 5 Mg Tablet 5 Mg PO TID 12/07/13 Reported Sinemet Cr 50-200 Tablet (Carbidopa/Levodopa) 1 Each Tablet.er 1 Each PO TID 12/07/13 Reported Daily Vitamin (Multivitamin) 1 Each Tablet 1 Each PO DAILY 12/07/13 Reported Fish Oil 1,000 Mg Capsule ([place]-3 Fatty Acids/Fish Oil) 1 Each Capsule 1 Each PO BID 12/07/13 Reported Impression . 1. Acute hypoxic respiratory failure secondary to pneumonia, likely gram negative. Cannot exclude gram positive. Influenza screen negative. 2. Abnormal chest x-ray consistent with right upper lobe consolidation and right lower lobe infiltrate, favoring pneumonia. 3. Underlying obesity also contributing to her dyspnea. 4. Marked leukocytosis. MDS. Hematology is following. 5. Marked anemia. MDS by biopsy. no gastrointestinal bleed.. Hematology is following. 6. Increased procalcitonin level suggesting infectious etiology. 7. Gram positive bacteremia Plan . 1. We will continue with present oxygen. 2. cxr with improving RUL infiltrate, mild CHF 3. Monitor fevers. 4. Monitor white cell count and hemoglobin. 5. antibiotics per Infectious Disease. 7. Continue bronchodilators. 8. Discussed with RN 9. would benefit from skill. she declines. ok with dc with home health RADHA CORTES MD Aug 31, 2019 12:17
--- NOTE | 2019-08-31 14:27 | PDOC ---
PROGRESS NOTES Subjective Subjective HPI - f/u of Leukocytosis ROS - no CP Objective Objective Vital Signs Date Time Temp Pulse Resp B/P (MAP) Pulse Ox O2 Delivery O2 Flow Rate FiO2 08/31/19 11:39 93 Nasal Cannula 2.0 08/31/19 11:00 98.0 85 18 158/72 (100) 98.0 Intake and Output 08/31/19 07:00 Intake Total 2280 ml Output Total 302 ml Balance 1978 ml Intake Oral 840 ml IV Total 720 ml Other 720 ml Output Urine Total 302 ml # Voids 6 Physical Exam Heart: Normal S1, Normal S2 General: Alert, Oriented X3 Lungs: Clear to auscultation Neuro: Normal speech Psych/Mental Status: Mental status NL Assessment Assessment Problems Medical Problems: (1) NATALIE (acute kidney injury) Status: Acute (2) Anemia Status: Acute (3) Hypokalemia Status: Acute (4) Hypoxia Status: Acute (5) Pneumonia Status: Acute IMPRESSION AND PLAN: 1. Myelodysplastic syndrome as suggested by bone marrow biopsy on 12/27/2018. She has been treated with Aranesp. Agreed to monitor CBC and transfuse PRBC as needed to keep the hemoglobin at or above 7. No evidence of bleeding. She will follow up with Dr. Solis upon discharge. 2. Leukocytosis, significantly worse. There is evidence of elevated bands, promyelocytes, myelocytes, metamyelocytes and toxic granulations suggestive of sepsis. I do not suspect a leukemia since she has had a bone marrow biopsy recently. However, I have discussed the case with pathologist, Dr. Elier Delgado, peripheral smear is suggestive of leukemoid reaction. Ordered PCR for BCR-ABL. I reviewed the bone marrow results from 12/27/2018 which showed worsening dyspoiesis when compared to the prior bone marrow biopsy, worrisome for myelodysplastic syndrome or a mixed myelodysplastic syndrome/myeloproliferative neoplasm. WBC 52.3 on 08/29/2019. WBC 35.2 on 08/31/19. f/u with Dr Solis in 1-2 weeks. 3. Anemia. Continue to monitor and transfuse as needed. 4. Pneumonia and sepsis. Continue management per Dr. Carlito Cruz and Infectious Diseases and Pulmonary Medicine. Comment Review of Relevant I have reviewed the following items deepak (where applicable) has been applied. Labs Laboratory Tests Test 08/29/19 16:38 08/29/19 20:26 08/30/19 07:28 08/30/19 09:25 Glucose (Fingerstick) 110 mg/dL (70-99) 152 mg/dL (70-99) 89 mg/dL (70-99) White Blood Count 37.0 x10^3/uL (4.0-11.0) Red Blood Count 2.54 x10^6/uL (3.50-5.40) Hemoglobin 8.0 g/dL (12.0-15.5) Hematocrit 25.4 % (36.0-47.0) Mean Corpuscular Volume 100 fL (79-100) Mean Corpuscular Hemoglobin 32 pg (25-35) Mean Corpuscular Hemoglobin Concent 32 g/dL (31-37) Red Cell Distribution Width 22.3 % (11.5-14.5) Platelet Count 624 x10^3/uL (140-400) Neutrophils (%) (Auto) 81 % (31-73) Lymphocytes (%) (Auto) 14 % (24-48) Monocytes (%) (Auto) 2 % (0-9) Eosinophils (%) (Auto) 3 % (0-3) Basophils (%) (Auto) 0 % (0-3) Neutrophils # (Auto) 30.1 x10^3/uL (1.8-7.7) Lymphocytes # (Auto) 5.0 x10^3/uL (1.0-4.8) Monocytes # (Auto) 0.8 x10^3/uL (0.0-1.1) Eosinophils # (Auto) 1.0 x10^3/uL (0.0-0.7) Basophils # (Auto) 0.2 x10^3/uL (0.0-0.2) Test 08/30/19 10:49 08/30/19 16:42 08/31/19 03:10 08/31/19 07:14 Glucose (Fingerstick) 104 mg/dL (70-99) 160 mg/dL (70-99) 93 mg/dL (70-99) White Blood Count 35.2 x10^3/uL (4.0-11.0) Red Blood Count 2.54 x10^6/uL (3.50-5.40) Hemoglobin 8.5 g/dL (12.0-15.5) Hematocrit 25.0 % (36.0-47.0) Mean Corpuscular Volume 98 fL (79-100) Mean Corpuscular Hemoglobin 34 pg (25-35) Mean Corpuscular Hemoglobin Concent 34 g/dL (31-37) Red Cell Distribution Width 21.3 % (11.5-14.5) Platelet Count 593 x10^3/uL (140-400) Neutrophils (%) (Auto) 78 % (31-73) Lymphocytes (%) (Auto) 15 % (24-48) Monocytes (%) (Auto) 4 % (0-9) Eosinophils (%) (Auto) 3 % (0-3) Basophils (%) (Auto) 0 % (0-3) Neutrophils # (Auto) 27.3 x10^3/uL (1.8-7.7) Lymphocytes # (Auto) 5.4 x10^3/uL (1.0-4.8) Monocytes # (Auto) 1.3 x10^3/uL (0.0-1.1) Eosinophils # (Auto) 1.1 x10^3/uL (0.0-0.7) Basophils # (Auto) 0.2 x10^3/uL (0.0-0.2) Sodium Level 141 mmol/L (136-145) Potassium Level 5.0 mmol/L (3.5-5.1) Chloride Level 106 mmol/L (98-107) Carbon Dioxide Level 28 mmol/L (21-32) Anion Gap 7 (6-14) Blood Urea Nitrogen 23 mg/dL (7-20) Creatinine 1.0 mg/dL (0.6-1.0) Estimated GFR (Cockcroft-Gault) 55.1 Glucose Level 98 mg/dL (70-99) Calcium Level 8.1 mg/dL (8.5-10.1) Test 08/31/19 12:10 Glucose (Fingerstick) 92 mg/dL (70-99) Laboratory Tests Test 08/30/19 16:42 08/31/19 03:10 08/31/19 07:14 08/31/19 12:10 Glucose (Fingerstick) 160 mg/dL (70-99) 93 mg/dL (70-99) 92 mg/dL (70-99) White Blood Count 35.2 x10^3/uL (4.0-11.0) Red Blood Count 2.54 x10^6/uL (3.50-5.40) Hemoglobin 8.5 g/dL (12.0-15.5) Hematocrit 25.0 % (36.0-47.0) Mean Corpuscular Volume 98 fL (79-100) Mean Corpuscular Hemoglobin 34 pg (25-35) Mean Corpuscular Hemoglobin Concent 34 g/dL (31-37) Red Cell Distribution Width 21.3 % (11.5-14.5) Platelet Count 593 x10^3/uL (140-400) Neutrophils (%) (Auto) 78 % (31-73) Lymphocytes (%) (Auto) 15 % (24-48) Monocytes (%) (Auto) 4 % (0-9) Eosinophils (%) (Auto) 3 % (0-3) Basophils (%) (Auto) 0 % (0-3) Neutrophils # (Auto) 27.3 x10^3/uL (1.8-7.7) Lymphocytes # (Auto) 5.4 x10^3/uL (1.0-4.8) Monocytes # (Auto) 1.3 x10^3/uL (0.0-1.1) Eosinophils # (Auto) 1.1 x10^3/uL (0.0-0.7) Basophils # (Auto) 0.2 x10^3/uL (0.0-0.2) Sodium Level 141 mmol/L (136-145) Potassium Level 5.0 mmol/L (3.5-5.1) Chloride Level 106 mmol/L (98-107) Carbon Dioxide Level 28 mmol/L (21-32) Anion Gap 7 (6-14) Blood Urea Nitrogen 23 mg/dL (7-20) Creatinine 1.0 mg/dL (0.6-1.0) Estimated GFR (Cockcroft-Gault) 55.1 Glucose Level 98 mg/dL (70-99) Calcium Level 8.1 mg/dL (8.5-10.1) Microbiology 08/28/19 - Final, Resulted 08/28/19 - Final, Resulted 08/28/19 - Final, Resulted 08/28/19 - Preliminary, Resulted 08/28/19 - Preliminary, Resulted 08/28/19 - Preliminary, Resulted 08/28/19 Gram Stain Evaluation - Final, Resulted 08/28/19 Sputum Culture - Preliminary, Resulted 08/28/19 Sputum Result 1 - Final, Resulted 08/27/19 Blood Culture - Preliminary, Resulted 08/27/19 Blood Culture Result 1 (CHELY) - Preliminary, Resulted Medications Current Medications Methylprednisolone Sodium Succinate (SOLU-Medrol 125MG VIAL) 125 mg 1X ONCE IV Last administered on 08/27/19at 17:04; Start 08/27/19 at 16:45; Stop 08/27/19 at 16:46; Status DC Albuterol/ Ipratropium (Duoneb) 3 ml 1X ONCE NEB Last administered on 08/27/19at 17:58; Start 08/27/19 at 16:45; Stop 08/27/19 at 16:46; Status DC Piperacillin Sod/ Tazobactam Sod 3.375 gm/Sodium Chloride 50 ml @ 100 mls/hr 1X STAT IV Last administered on 08/27/19at 18:32; Start 08/27/19 at 17:17; Stop 08/27/19 at 17:46; Status DC Vancomycin HCl 1.5 gm/Sodium Chloride 500 ml @ 250 mls/hr 1X STAT IV Last administered on 08/27/19at 18:32; Start 08/27/19 at 17:17; Stop 08/27/19 at 19:16; Status DC Sodium Chloride 1,000 ml @ 1,000 mls/hr 1X STAT IV ; Start 08/27/19 at 17:17; Stop 08/27/19 at 17:36; Status DC Sodium Chloride 1,000 ml @ 1,000 mls/hr 1X STAT IV Last administered on 08/27/19at 17:40; Start 08/27/19 at 17:17; Stop 08/27/19 at 18:16; Status DC Potassium Chloride (Klor-Con) 40 meq 1X STAT PO ; Start 08/27/19 at 17:51; Stop 08/27/19 at 17:54; Status DC Ondansetron HCl (Zofran) 4 mg PRN Q8HRS PRN IV NAUSEA/VOMITING; Start 08/27/19 at 18:30; Stop 08/28/19 at 18:29; Status DC Acetaminophen (Tylenol) 650 mg PRN Q4HRS PRN PO FEVER; Start 08/27/19 at 18:30; Stop 08/28/19 at 10:27; Status DC Albuterol/ Ipratropium (Duoneb) 3 ml RTQID NEB Last administered on 08/28/19at 15:46; Start 08/27/19 at 20:00; Stop 08/28/19 at 19:59; Status DC Potassium Chloride/Dextrose/ Sod Cl 1,000 ml @ 75 mls/hr [id number] IV Last administered on 08/28/19at 10:10; Start 08/27/19 at 21:00; Stop 08/28/19 at 10:25; Status DC Bupropion HCl (Wellbutrin Xl) 150 mg DAILY PO Last administered on 08/31/19at 09:07; Start 08/28/19 at 09:00 Acetaminophen/ Hydrocodone Bitart (Lortab 7.5/325) 0.5 tab PRN Q4HRS PRN PO MODERATE PAIN 4-6 Last administered on 08/29/19at 17:45; Start 08/28/19 at 00:00 Albuterol Sulfate (Ventolin Neb Soln) 2.5 mg PRN QID PRN NEB SHORTNESS OF BREATH Last administered on 08/28/19at 00:28; Start 08/28/19 at 00:30; Stop 08/28/19 at 10:25; Status DC Levothyroxine Sodium (Synthroid) 175 mcg DAILYAC PO Last administered on 08/31/19at 07:31; Start 08/28/19 at 07:30 Fish Oil (Fish Oil) 1 mg BID PO Last administered on 08/28/19at 20:42; Start 08/28/19 at 09:00; Stop 08/29/19 at 09:29; Status DC Oxybutynin Chloride (Ditropan) 5 mg TID PO ; Start 08/28/19 at 09:00; Stop 08/28/19 at 01:05; Status DC Polyethylene Glycol (miraLAX PACKET) 17 gm DAILY PO Last administered on 08/30/19at 07:59; Start 08/28/19 at 09:00 Ropinirole HCl (Requip) 3 mg 5XDAY PO ; Start 08/28/19 at 06:00; Stop 08/28/19 at 01:10; Status DC Non-Formulary Medication (Carbidopa/ Levodopa (Sinemet Cr 50-200 Tablet)) 1 each TID PO ; Start 08/28/19 at 09:00; Stop 08/28/19 at 00:19; Status DC Multivitamins (Thera M Plus) 1 tab DAILY PO Last administered on 08/31/19at 09:07; Start 08/28/19 at 09:00 Non-Formulary Medication (Safinamide Mesylate (Xadago)) 50 mg DAILY PO ; Start 08/28/19 at 09:00; Stop 08/28/19 at 08:59; Status DC Carbidopa/Levodopa (Sinemet Cr) 2 tab.sa 5XDAY PO Last administered on 08/29/19at 16:41; Start 08/28/19 at 06:00; Stop 08/29/19 at 17:34; Status DC Oxybutynin Chloride (Ditropan) 5 mg TID PO Last administered on 08/31/19at 09:07; Start 08/28/19 at 01:15 Ropinirole HCl (Requip) 3 mg 5XDAY PO Last administered on 08/29/19at 16:42; Start 08/28/19 at 01:15; Stop 08/29/19 at 17:29; Status DC Acetaminophen/ Hydrocodone Bitart (Lortab 7.5/325) 1 tab PRN Q4HRS PRN PO SEVERE PAIN 7-10 Last administered on 08/31/19at 07:35; Start 08/28/19 at 02:00 Magnesium Hydroxide (Milk Of Magnesia) 2,400 mg PRN DAILY PRN PO CONSTIPATION 1ST CHOICE; Start 08/28/19 at 03:30 Piperacillin Sod/ Tazobactam Sod (Zosyn Per Pharmacy) 1 each PRN DAILY PRN MC SEE COMMENTS; Start 08/28/19 at 06:45 Vancomycin HCl (Vanco Per Pharmacy) 1 each PRN DAILY PRN MC SEE COMMENTS Last administered on 08/28/19at 06:52; Start 08/28/19 at 06:45; Stop 08/28/19 at 07:43; Status DC Piperacillin Sod/ Tazobactam Sod 3.375 gm/Sodium Chloride 50 ml @ 100 mls/hr Q6HRS IV Last administered on 08/31/19at 12:07; Start 08/28/19 at 07:00 Vancomycin HCl 1.5 gm/Sodium Chloride 500 ml @ 250 mls/hr Q24H IV Last administered on 08/28/19at 16:52; Start 08/28/19 at 18:00; Stop 08/29/19 at 09:06; Status DC Vancomycin HCl (Vancomycin Trough Level) 1 each 1X ONCE MC ; Start 08/29/19 at 17:30; Stop 08/29/19 at 17:31; Status Cancel Azithromycin 500 mg/Sodium Chloride 250 ml @ 250 mls/hr Q24H IV Last administered on 08/31/19at 07:30; Start 08/28/19 at 08:00 Albuterol Sulfate (Ventolin Neb Soln) 2.5 mg RTQID NEB Last administered on 08/31/19at 11:39; Start 08/28/19 at 12:00 Enoxaparin Sodium (Lovenox 40mg Syringe) 40 mg Q24H SQ ; Start 08/28/19 at 11:00; Stop 08/28/19 at 10:38; Status DC Potassium Chloride (Klor-Con) 20 meq 1X ONCE PO Last administered on 08/28/19at 11:26; Start 08/28/19 at 11:00; Stop 08/28/19 at 11:01; Status DC Lactulose (Lactulose) 20 gm Q2H PO Last administered on 08/28/19at 11:53; Start 08/28/19 at 12:00; Stop 08/28/19 at 14:01; Status DC Acetaminophen (Tylenol) 650 mg PRN Q6HRS PRN PO MILD PAIN / TEMP; Start 08/28/19 at 10:30 Vancomycin HCl (Vanco Per Pharmacy) 1 each PRN DAILY PRN MC SEE COMMENTS; Start 08/28/19 at 10:45; Status Cancel Insulin Human Lispro (HumaLOG) 0-6 UNITS TIDWMEALS SQ Last administered on 08/28/19at 16:54; Start 08/28/19 at 12:00 Potassium Chloride/Dextrose/ Sod Cl 1,000 ml @ 60 mls/hr [id number] IV Last administered on 08/30/19at 18:01; Start 08/28/19 at 10:45; Stop 08/31/19 at 10:17; Status DC Enoxaparin Sodium (Lovenox 40mg Syringe) 40 mg Q24H SQ ; Start 08/28/19 at 21:00; Stop 08/28/19 at 10:50; Status DC Pantoprazole Sodium (Protonix) 40 mg DAILYAC PO Last administered on 08/31/19at 07:32; Start 08/28/19 at 12:15 Polyethylene Glycol (miraLAX PACKET) 17 gm PRN DAILY PRN PO CONSTIPATION; Start 08/28/19 at 12:15 Fish Oil (Fish Oil) 1,000 mg DAILY PO Last administered on 08/31/19at 09:07; Start 08/29/19 at 09:30 Magnesium Citrate (Citroma) 296 ml 1X ONCE PO Last administered on 08/29/19at 11:18; Start 08/29/19 at 10:15; Stop 08/29/19 at 10:16; Status DC Bisacodyl (Dulcolax Tab) 10 mg 1X ONCE PO Last administered on 08/29/19at 11:18; Start 08/29/19 at 11:00; Stop 08/29/19 at 11:02; Status DC Lactobacillus Rhamnosus (Culturelle) 1 cap BID PO Last administered on 08/31/19 09:07; Start 08/29/19 at 21:00 Ibuprofen (Motrin) 200 mg PRN Q6HRS PRN PO INFLAMMATION Last administered on 08/31/19at 02:15; Start 08/29/19 at 16:15 Trazodone HCl (Desyrel) 50 mg PRN QHS PRN PO INSOMNIA Last administered on 08/30/19at 20:29; Start 08/29/19 at 16:15 Ropinirole HCl (Requip) 3 mg 0600,0900,1200,1600 PO Last administered on 08/31/19 12:09; Start 08/30/19 at 06:00 Ropinirole HCl (Requip) 3 mg Q24H PO Last administered on 08/30/19at 19:59; Start 08/29/19 at 20:00 Carbidopa/Levodopa (Sinemet Cr) 2 tab.sa 0600,0900,1200,1600 PO Last administered on 08/31/19at 12:08; Start 08/30/19 at 06:00 Carbidopa/Levodopa (Sinemet Cr) 2 tab.sa Q24H PO Last administered on 08/30/19at 20:00; Start 08/29/19 at 20:00 Furosemide (Lasix) 20 mg 1X ONCE IVP Last administered on 08/31/19at 12:07; Start 08/31/19 at 10:30; Stop 08/31/19 at 10:31; Status DC Active Scripts Active Cefdinir 300 Mg Capsule 300 Mg PO BID Culturelle (Lactobacillus Rhamnosus Gg) 1 Each Cap.sprink 1 Cap PO BID Carbidopa-Levo Er 25-100 Tab (Carbidopa/Levodopa) 1 Each Tablet.er 2 Tab.sa PO 5XDAY Ropinirole Hcl 1 Mg Tablet 3 Mg PO 5X Carbidopa-Levo Er 25-100 Tab (Carbidopa/Levodopa) 1 Each Tablet.er 2 Tab.sa PO 0600,0900,1200,1600 Miralax (Polyethylene Glycol 3350) 17 Gm Powd.pack 17 Gm PO DAILY Reported Levothyroxine Sodium 175 Mcg Tablet 175 Mcg PO DAILYAC Hydrocodone-Apap 7.5-325 (Hydrocodone Bit/Acetaminophen) 1 Each Tablet 0.5-1 Tab PO PRN Q4-6HRS PRN Proair Hfa Inhaler (Albuterol Sulfate) 8.5 Gm Hfa.aer.ad 8.5 Gm IH PRN Duoneb 0.5 Mg-3 Mg/3 Ml Soln (Ipratropium/Albuterol Sulfate) 3 Ml Ampul.neb 3 Ml IH PRN Bupropion Xl (Bupropion Hcl) 150 Mg Tab.er.24h 150 Mg PO DAILY Oxybutynin Chloride 5 Mg Tablet 5 Mg PO TID Daily Vitamin (Multivitamin) 1 Each Tablet 1 Each PO DAILY Fish Oil 1,000 Mg Capsule ([place]-3 Fatty Acids/Fish Oil) 1 Each Capsule 1 Each PO BID Vitals/I & O Vital Sign - Last 24 Hours 08/30/19 08/30/19 08/30/19 08/30/19 15:00 15:22 16:35 17:35 Temp 97.9 97.9 Pulse 62 Resp 18 18 18 B/P (MAP) 114/70 (85) Pulse Ox 90 97 O2 Delivery Nasal Cannula Nasal Cannula Room Air O2 Flow Rate 2.0 2.0 1/9/20 08/30/19 08/30/19 08/30/19 19:00 19:35 20:19 20:29 Temp 98.3 98.3 Pulse 93 Resp 20 20 B/P (MAP) 128/41 (70) Pulse Ox 93 98 O2 Delivery Room Air Room Air Room Air Room Air 08/30/19 08/30/19 08/31/19 08/31/19 21:29 23:00 03:00 07:00 Temp 98.0 97.9 97.9 98.0 97.9 97.9 Pulse 91 84 82 Resp 20 20 20 18 B/P (MAP) 129/48 (75) 136/56 (82) 127/43 (71) Pulse Ox 94 92 91 O2 Delivery Room Air Nasal Cannula Room Air Room Air O2 Flow Rate 2.0 08/31/19 08/31/19 08/31/19 08/31/19 07:14 07:35 08:00 11:00 Temp 98.0 98.0 Pulse 85 Resp 18 18 B/P (MAP) 158/72 (100) Pulse Ox 98 94 O2 Delivery Room Air Room Air Room Air Nasal Cannula O2 Flow Rate 2.0 2.0 08/31/19 11:39 Pulse Ox 93 O2 Delivery Nasal Cannula O2 Flow Rate 2.0 Intake and Output 08/30/19 08/30/19 08/31/19 15:00 23:00 07:00 Intake Total 120 ml 240 ml 1920 ml Output Total 2 ml 300 ml Balance 120 ml 238 ml 1620 ml Hemodynamically unstable?: No Is patient in severe pain?: No Is NPO status required?: MARIO Yañez MD Aug 31, 2019 14:27
[2019-08-31 15:00] VITALS: BP 108/60
--- NOTE | 2019-08-31 18:30 | NUR ---
Discharge Note: JULIETA ELDER [place] Discharge instructions and discharge home medications reviewed with Patient and a copy given. All questions have been answered and understanding verbalized. The following instructions and handouts were given: anemia, pneumonia Discontinued IV lines Patient discharged home with home health services left with oxygen tank with EMS and with all belongings.
== END 2019-08-31 18:30 | disposition home health service (06) | DRG 871 ==
LOC: ER 16:33 → ED HOLD 18:13 → ER 19:17 → 1 WEST ICU 20:43 → 4 NORTH 08-28 16:11
PROVIDERS: ADMIT Internal Medicine; ATTEND Internal Medicine
PROC: 30233N1 Transfusion of Nonautologous Red Blood Cells into Peripheral Vein, Percutaneous Approach (ICD-10-PCS; principal; 2019-08-27)
DX: A41.9 Sepsis, unspecified organism (principal); J96.01 Acute respiratory failure with hypoxia; J13 Pneumonia due to Streptococcus pneumoniae; I82.A12 Acute embolism and thrombosis of left axillary vein; J44.0 Chronic obstructive pulmonary disease with (acute) lower respiratory infection; J98.11 Atelectasis; K92.2 Gastrointestinal hemorrhage, unspecified; N17.9 Acute kidney failure, unspecified; B95.5 Unspecified streptococcus as the cause of diseases classified elsewhere; B96.89 Other specified bacterial agents as the cause of diseases classified elsewhere; D46.9 Myelodysplastic syndrome, unspecified; D47.2 Monoclonal gammopathy; D53.9 Nutritional anemia, unspecified; D63.8 Anemia in other chronic diseases classified elsewhere; E03.9 Hypothyroidism, unspecified; E66.01 Morbid (severe) obesity due to excess calories; E78.5 Hyperlipidemia, unspecified; E87.6 Hypokalemia; F12.90 Cannabis use, unspecified, uncomplicated; G20 Parkinson's disease; G89.29 Other chronic pain; I11.0 Hypertensive heart disease with heart failure; I50.9 Heart failure, unspecified; K59.00 Constipation, unspecified; N32.81 Overactive bladder; R13.12 Dysphagia, oropharyngeal phase; Z80.1 Family history of malignant neoplasm of trachea, bronchus and lung; Z90.710 Acquired absence of both cervix and uterus
CPT/HCPCS: 36415; 36600; 71045; 80048; 80053; 81001; 82607; 82805; 82962; 83036; 83540; 83550; 83605; 83735; 83880; 84145; 84484; 85007; 85025; 85520; 85610; 85730; 86850; 86900; 86901; 86920; 87040; 87070; 87077; 87205; 87804; 93005; 94618; 94640; 94760; 96361; 96365; 96366; 96375; J0456; J1815; J1940; J2543; J2930; J3370; J7030; J7040; J7050; J7613; J7620; P9016; 92526; 92610; 97530; 97535; 99285-25; G0378

== ENCOUNTER → 2019-09-26 | Outpatient (CLI) | payer BC ==
[2019-08-31 15:00] VITALS: BP 108/60
[~2019-09-26] MED LIST changes: +CARB1TAB43 PO; +CEFD300C PO; +LACT1CAP19 PO; +LOSA1TAB19 PO; +OXYC-325 PO; +ROPI1TAB4 PO; +SENN1TAB99 PO
[2019-09-26 15:31] LABS: BASO # 0.2 x10^3/uL (0.0-0.2); BASO % 1 % (0-3); EOS # 0.3 x10^3/uL (0.0-0.7); EOS % 2 % (0-3); HEMATOCRIT 23.7 % (36.0-47.0); HEMOGLOBIN 7.8 g/dL (12.0-15.5); LYMPH # 5.6 x10^3/uL (1.0-4.8); LYMPH % 37 % (24-48); MEAN CORPUSCULAR HEMOGLOBIN 33 pg (25-35); MEAN CORPUSCULAR HGB CONC 33 g/dL (31-37); MEAN CORPUSCULAR VOLUME 99 fL (79-100); MONO # 0.7 x10^3/uL (0.0-1.1); MONO % 4 % (0-9); NEUT # 8.3 x10^3/uL (1.8-7.7); NEUT % 55 % (31-73); PLATELET COUNT 828 x10^3/uL (140-400); RED CELL DISTRIBUTION WIDTH 21.1 % (11.5-14.5); WHITE BLOOD COUNT 15.1 x10^3/uL (4.0-11.0)
[2019-09-26 15:49] LABS: PROTHROMBIN TIME PATIENT 13.4 SEC (11.7-14.0)
[2019-09-26 16:05] LABS: ALBUMIN 3.2 g/dL (3.4-5.0); ALBUMIN/GLOBULIN RATIO 0.8 (1.0-1.7); CALCIUM 9.1 mg/dL (8.5-10.1); GFR 55.1; TOTAL BILIRUBIN 0.5 mg/dL (0.2-1.0); TOTAL PROTEIN 7.2 g/dL (6.4-8.2)
[2019-09-26 17:28] LABS: PLT ESTIMATE INCREASED (ADEQUATE)
[2019-09-26 17:29] LABS: ANISOCYTOSIS SLIGHT; STOMATOCYTES OCC
--- NOTE | 2019-09-26 18:52 | EKG ---
[facility] [address] [place] [address] Test Date: 2019-09-26 Test Time: 15:14:39 Pat Name: JULIETA ELDER Department: Room: Gender: F Director Software: LEONA : 1950 Requested By: ANDREINA WILDER Order Number: [id number] Reading MD: Measurements Intervals [place] Rate: 95 P: 49 MA: 184 QRS: 42 QRSD: 74 T: 31 QT: 330 QTc: 418 Interpretive Statements SINUS RHYTHM LEFT ATRIAL ABNORMALITY QRS(T) CONTOUR ABNORMALITY CONSISTENT WITH ANTEROSEPTAL INFARCT AGE UNDETERMINED T ABNORMALITY IN HIGH LATERAL LEADS ABNORMAL ECG RI6.01 Compared to ECG 01/12/2016 06:01:23 Atrial abnormality now present Myocardial infarct finding now present T-wave abnormality now present
--- NOTE | 2019-09-26 18:52 | RAD ---
Chest radiograph 09/26/2019 2:22 PM INDICATION: Battery replacement and defibrillators COMPARISON: None available TECHNIQUE: Frontal and lateral views of the chest are provided. FINDINGS: The cardiomediastinal silhouette is within normal limits. Battery packs are identified projecting over the left and right chest. Similar appearance of a small right pleural effusion with adjacent compressive atelectasis versus infiltrate. No pneumothorax. Similar degree of mild pulmonary vascular congestion. IMPRESSION: Similar aeration of the lungs compared to prior examination. Electronically signed by: Julia Alcantara MD (09/26/2019 3:35 PM) [id number]
== END | disposition home or self-care (01) ==
LOC: SURGPAT 14:15
PROVIDERS: ATTEND Neurological Surgery
DX: Z01.818 Encounter for other preprocedural examination (principal); R00.2 Palpitations; J90 Pleural effusion, not elsewhere classified; R94.31 Abnormal electrocardiogram [ECG] [EKG]
CPT/HCPCS: 36415; 71046; 80053; 85025; 85610; 85730; 87641; 93005

== ENCOUNTER 2019-10-02 06:59 | Day surgery (SDC) | payer BC ==
[~2019-10-02] VITALS: Ht 160 cm; Wt 95.0 kg
[~2019-10-02 06:59] MED LIST changes: -OXYC-325 PO; -SENN1TAB99 PO
[2019-10-02] MEDS ORDERED: MORPHINE SULFATE 2 MG/ML VIAL. IV PRN (07:00)
[2019-10-02] MEDS ORDERED: PROCHLORPERAZINE 10 MG/2 ML VIAL. IV PRN (07:00)
[2019-10-02] MEDS ORDERED: HYDROmorphone 2 MG/ML VIAL IV PRN (07:00)
[2019-10-02] MEDS ORDERED: ONDANSETRON PF 4 MG/2 ML VIAL. IV PRN (07:00)
[2019-10-02] MEDS ORDERED: fentaNYL PF VIAL 100 MCG/2 ML VIAL IV PRN ×2 (07:00)
[2019-10-02] MEDS ORDERED: BACITRACIN TOPICAL OINT PACKET. TP ONE (07:20)
[2019-10-02] MEDS ORDERED: LIDOCAINE 1%/EPI 1:100,000 20 ML VIAL. ONE (07:20)
[2019-10-02] MEDS: IV RINGERS,LACTATED 1000ML 1,000 ML IV SCH ×2 (07:52→12:01)
[2019-10-02] MEDS ORDERED: ceFAZolin 2GM PREMIX 2 GM/50 ML BAG IV ONE (08:00)
[2019-10-02] MEDS ORDERED: BACITRACIN 50,000 UNIT in IV NORMAL SALINE 500ML BAG 500 ML IRR ONE (08:00)
[2019-10-02] MEDS ORDERED: MIDAZOLAM HCL/PF 2 MG/2 ML VIAL. ONE (08:14)
[2019-10-02] MEDS ORDERED: ROCURONIUM 50 MG/5 ML VIAL. ONE (08:14)
[2019-10-02] MEDS ORDERED: REMIFENTANIL 1 MG VIAL. IV ONE (08:14)
[2019-10-02] MEDS ORDERED: fentaNYL PF VIAL 250 MCG/5 ML VIAL ONE (08:14)
[2019-10-02] MEDS ORDERED: DEXAMETHASONE SOD PHOS 4 MG/ML VIAL ONE (08:15)
[2019-10-02] MEDS ORDERED: LIDOCAINE 2% PF 5 ML VIAL. ONE (08:15)
[2019-10-02] MEDS ORDERED: ONDANSETRON PF 4 MG/2 ML VIAL. ONE (08:15)
[2019-10-02] MEDS ORDERED: PROPOFOL 0 ML IV ONE (08:15)
[2019-10-02] MEDS ORDERED: PROPOFOL 20 ML IV ONE (08:15)
[2019-10-02] MEDS ORDERED: GLYCOPYRROLATE 1 MG/5 ML VIAL. ONE (10:02)
[2019-10-02] MEDS ORDERED: NEOSTIGMINE METHYLSULFATE 5 MG/5 ML SYRINGE. ONE (10:02)
--- NOTE | 2019-10-02 10:17 | PDOC ---
BRIEF OPERATIVE NOTE Date: Oct 02, 2019 Pre-Op Diagnosis Parkinson's Disease, depleted bilateral single channel deep brain stimulator pulse generators secondary to normal usage Post-Op Diagnosis same Procedure Performed removal and replacement of bilateral single channel deep brain stimulator pulse generators right and left chest with reprogramming Surgeon Yessi Perez Anesthesia Type: General Blood Loss 1mL Specimens Obtained explanted pulse generators (2) handed off to nursing Findings normal impedances Complications none apparent ANDREINA WIDLER MD Oct 02, 2019 10:17
[2019-10-02] MEDS ORDERED: SEVOFLURANE 61 TO 120 MINUTES. IH ONE (10:32)
[2019-10-02] MEDS ORDERED: buPROPion XL 150 MG TAB.ER.24H. PO SCH (11:00)
--- NOTE | 2019-10-02 11:16 | OP ---
DATE OF SURGERY: 10/02/2019 PREOPERATIVE DIAGNOSES: Parkinson's disease with bilateral single channel deep brain stimulation system with bilateral generator depletion secondary to normal usage. POSTOPERATIVE DIAGNOSES: Parkinson's disease with bilateral single channel deep brain stimulation system with bilateral generator depletion secondary to normal usage. PROCEDURE: Removal and replacement of bilateral single channel deep brain stimulator pulse generators from the right and left chest with impedance check and reprogramming of the new pulse generators. ANESTHESIA: General. COMPLICATIONS: None intraprocedurally. INDICATIONS FOR THE PROCEDURE: The patient is a 69-year-old female with Parkinson's disease, who derived benefit from bilateral deep brain stimulation. Her intermittent pulse generators had been depleted secondary to normal usage. Please refer to the patient chart for additional details. DESCRIPTION OF PROCEDURE: After informed consent was obtained, the patient was brought in to the operating room. She was placed under general anesthesia and was placed in the supine position. All pressure points were checked and padded appropriately. Ancef was instituted as a prophylactic antibiotic. Right and left chest over the prior pulse generator incisions was prepped and draped in the usual sterile fashion. The left chest incision was opened with a 15 blade scalpel. Blunt dissection techniques were utilized to dissect the underlying soft tissues to approach the pulse generator with care to identify and avoid any damage to the wires. Impulse generator was gently removed from the pocket and disconnected from the lead wire. A new pulse generator, which was programmed to prior settings was instituted and connected to the extension wire. This was secured with a torque wrench according to the historical manuscripts curator specification. The new pulse generator was reinserted into the prior pocket and secured with 2-0 silk suture. Prior to closure of the incision impedances were checked and found to be within normal limits. Subcutaneous tissues were then reapproximated with 2-0 Vicryl in interrupted inverted fashion. The skin was reapproximated with 4-0 Vicryl in a running subcuticular fashion. Attention was then turned to the right chest. Previous incision was reopened with a 15-blade scalpel. Blunt dissection techniques were utilized to approach the intermittent pulse generator with care to avoid any contact with the wires. The old pulse generator was gently removed from the pocket and disconnected from the extension wire. The new pulse generator was brought into the field and connected to the extension wire and secured with a torque wrench according to the historical manuscripts curator specification. The pulse generator was then reinserted into the prior pocket with the same orientation as the explanted battery and secured in the pocket with 2-0 silk suture. This battery was programmed to the settings of the previous pulse generator and impedances were checked. Impedances were found to be within normal limits. The subcutaneous tissues were then reapproximated with 2-0 Vicryl in an interrupted inverted fashion and the skin was reapproximated with 4-0 Vicryl in a running subcuticular fashion. Both wounds were dressed with Steri-Strips, Mastisol, Telfa, and Tegaderm. At the end of the procedure, all needle and sponge counts were correct. The patient was extubated in the operating room and taken to recovery in stable condition. There were no intraprocedural complications apparent. ANDREINA WILDER MD DR: Mariaelena JOB#: [id number] / [id number]
[2019-10-02 11:25] VITALS: BP 138/53
[2019-10-02] MEDS ORDERED: oxyCODONE/APAP 5/325 1 TAB TABLET PO ONE (11:45)
[2019-10-02] MEDS ORDERED: OXYC-325 PO (11:46)
[2019-10-02] MEDS ORDERED: SENN1TAB99 PO (11:47)
[2019-10-02] MEDS ORDERED: MULTIVITAMIN with MINERAL TABLET. PO SCH (12:00)
[2019-10-02] MEDS ORDERED: OXYBUTYNIN CHLORIDE 5 MG TABLET PO SCH (14:00)
[2019-10-02] MEDS ORDERED: CARBIDOPA/LEVODOPA CR 25/100MG TABLET.SA. PO SCH (16:00)
[2019-10-02] MEDS ORDERED: LACTOBACILLUS RHAMNOSUS GG 1 CAPSULE. PO SCH (21:00)
[2019-10-03] MEDS ORDERED: LEVOTHYROXINE 175 MCG TABLET PO SCH (06:00)
== END 2019-10-02 12:05 | disposition home or self-care (01) ==
LOC: SURG 06:59
PROVIDERS: ATTEND Neurological Surgery
DX: G20 Parkinson's disease (principal); I11.0 Hypertensive heart disease with heart failure; I50.9 Heart failure, unspecified; J45.909 Unspecified asthma, uncomplicated; E78.00 Pure hypercholesterolemia, unspecified; E03.9 Hypothyroidism, unspecified; D64.9 Anemia, unspecified; F32.9 Major depressive disorder, single episode, unspecified; E66.9 Obesity, unspecified; Z68.37 Body mass index [BMI] 37.0-37.9, adult; Z86.718 Personal history of other venous thrombosis and embolism; Z90.49 Acquired absence of other specified parts of digestive tract; Z87.39 Personal history of other diseases of the musculoskeletal system and connective tissue; Z90.710 Acquired absence of both cervix and uterus
CPT/HCPCS: 61886; A7015; C1767; J0696; J1100; J2001; J2250; J2405; J2704; J2710; J3010; J3490; J7040; J7120